=== PATIENT | female | born 1960 | race Caucasian/White ===

== ENCOUNTER 2025-01-08 07:55 | Inpatient (IN) | payer BC, SELFPAY ==
[2025-01-08] VITALS (20 sets, daily range): BP systolic 105–166; BP diastolic 52–86; PULSE 76–109; RESP 17–33; TEMP 36.3–36.8; O2SAT 90–100; BMI 28.0
--- NOTE | ~2025-01-08 | XR_ITS ---
EXAMINATION: XR chest 2V DATE: 01/08/2025 09:45 INDICATION: Shortness of breath. TECHNIQUE: Frontal and lateral views of the chest were obtained. COMPARISON: CT abdomen 11/03/2014 FINDINGS: There is no pneumonia, pleural effusion, or pneumothorax. The heart size is normal. IMPRESSION: 1. No acute cardiopulmonary disease. Reviewed, dictated and finalized at location A. [facility] [employer]
--- NOTE | 2025-01-08 08:05 | ECG_ITS ---
Test Date: 2025-01-08 09:04:16 Measurements Intervals [place] Rate: 95 P: 51 MS: 133 QRS: 64 QRSD: 81 T: 79 QT: 355 QTc: 447 Interpretive Statements SINUS RHYTHM MINIMAL Q WAVES- ANTEROLAT/INF LEADS BORDERLINE T WAVE ABNORMALITY- ANTERIOR LEADS BASELINE ARTIFACT- I, III, AVR, AVL, AVF, V1-V6 BORDERLINE ECG No previous ECG available for comparison Electronically Signed On 01-08-2025 09:34:54 JEWELRY SALESPERSON by Monty Arellano D.O.
--- NOTE | 2025-01-08 08:19 | ED_ITS ---
HPI - SOB/Dyspnea General Chief Complaint: Shortness of Breath/Dyspnea Stated Complaint: SOB Time Seen by Provider: 01/08/25 08:12 History of Present Illness HPI Narrative: Pt presents with shortness of breath for 4 days getting worse. Pt has ashtma hx but not on steroids for some time. Pt denies fever or CP. Pt has been doing a lot of nebs at home without relief. Pt received neb and solumedrol and mag in route without much change. Related Data Home Medications ?Medication ?Instructions ?Recorded ?Confirmed ?Last Taken ?Type albuterol sulfate 2.5 mg/3 mL 2.5 mg inhalation Q6-8H PRN 01/08/25 01/08/25 01/08/25 07:00 History (0.083 %) solution for nebulization shortness of breath or wheezing 2.5 mg albuterol sulfate 90 mcg/actuation 2 inh inhalation Q6-8H PRN 01/08/25 01/08/25 01/06/25 History aerosol inhaler shortness of breath or wheezing atorvastatin 40 mg tablet 40 mg PO QAM 01/08/25 01/08/25 01/06/25 History budesonide 160 mcg-glycopyr 9 2 inh inhalation QAM AND QPM 01/08/25 01/08/25 01/06/25 History mcg-formot 4.8 mcg/actuation HFA inhaler (Breztri Aerosphere) mepolizumab 100 mg/mL subcutaneous 300 mg subcut MONTHLY 01/08/25 01/08/25 12/28/24 History auto-injector (Nucala) omeprazole 20 mg capsule,delayed 20 mg PO QAM 01/08/25 01/08/25 01/06/25 History release Allergies Allergy/AdvReac Type Severity Reaction Status Date / Time No Known Allergies Allergy Verified 01/08/25 09:31 Review of Systems 2 Review of Systems: All systems reviewed & are unremarkable except as noted in HPI and below PMFSH Family History Family History (Updated 01/08/25 @ 14:07 by Frank Colin RN) Sibling Acute myocardial infarction Chronic lung disease Father Cerebrovascular accident Sibling Chronic lung disease Social History Social History Smoking packs per day: 0.5 Smoking cigarettes per day: 10.0 Years smoked: 41 Smoking pack-years: 20.50 Smoking status: Current every day smoker Tobacco type: cigarettes Smoking end date: 01/06/25 Alcohol intake: never Substance use: current Substance use type: does not use Do You Feel Safe in your Home?: Yes Lack of Transportation: No Lack of Food: Never True Current Housing: I Have Housing Concerned About Future Housing: No Difficulty Paying Gas/Electric Bills: No Difficulty Paying for Meds: No Currently Unemployed: No Education: High School Diploma/GED Difficulty w/ Childcare or Family Care: No Spiritual care concerns: No Exam 2 Const: General: healthy appearing Nutritional Appearance: well nourished Orientation/consciousness: patient oriented x3 Limitations: no limitations HENMT: Head: normal to inspection Mouth: Yes Normal oral and palatal mucosa present Chest: Chest palpation & inspection: normal inspection of the chest Resp: Effort & Inspection: tachypneic Auscultation: wheezes Cardio: Rate: tachycardic Rhythm: regular rhythm GI: GI Palp: Yes Soft to palpation and No Tenderness to palpation present (GI) Auscultation: normal bowel sounds Skin: General skin exam: normal color Rashes: no rashes Wounds: no wounds Neuro: General: patient oriented x3, moves all extremities, no focal motor deficits and CN's II-XI intact bilaterally Speech: normal speech Extrem: General: normal to inspection and no clubbing, cyanosis or edema Psych: Mental Status: mental status grossly normal Affect: normal affect Attitude: cooperative Course Vital Signs Vital signs: Vital Signs Temperature 98.2 F 01/08/25 07:58 Pulse Rate 103 H 01/08/25 07:58 Respiratory Rate 26 H 01/08/25 07:58 Blood Pressure 129/75 01/08/25 07:58 Pulse Oximetry 99 01/08/25 07:58 Oxygen Delivery Room Air 01/08/25 07:58 Temperature 97.3 F L 01/08/25 14:00 Pulse Rate 76 01/08/25 14:00 Respiratory Rate 19 01/08/25 14:00 Blood Pressure 105/57 L 01/08/25 14:00 Pulse Oximetry 96 01/08/25 14:00 Oxygen Delivery Nasal Cannula 01/08/25 08:10 Oxygen Flow Rate 2 01/08/25 08:10 MDM - SOB/Dyspnea MDM Narrative Medical decision making narrative: Pt presents with SOB for days. Pt tachypneic and wheezing. Pt has asthma hx. Pt received solumedrol nebs and mag in route. will give hour long neb and get labs and ekg and cxr and bnp. Pt better after hour long neb but still wheezing. Pt agreeable for observation. Discussed with Dr Crowley and agrees to admission. Lab Data 01/08/25 08:16 01/08/25 08:16 Labs: Lab Results 01/08/25 Range/Units 08:16 WBC 7.8 (4.5-10.0) K/mm3 RBC 4.67 (4.2-5.4) M/mm3 Hgb 14.5 (12.0-15.0) g/dL Hct 44.6 (37.0-47.0) % MCV 95.5 (80-100) fl MCH 31.0 (26-34) pg MCHC 32.5 (32-36) g/dl RDW 13.2 (11.5-14.5) % Plt Count 196 (150-375) k/mm3 MPV 9.4 (7.4-10.4) fl Immature Gran % (Auto) 0.5 (0-0.5) % Neut % (Auto) 81.7 H (45.5-73.1) % Lymph % (Auto) 8.0 L (18.3-44.2) % [place] % (Auto) 9.6 H (2.6-8.5) % Eos % (Auto) 0.1 (0-4.4) % Baso % (Auto) 0.1 L (0.2-1.2) % Lymph # (Auto) 0.62 L (0.9-3.2) K/mm3 Daggett # (Auto) 0.8 H (0.1-0.6) K/mm3 Eos # (Auto) 0.0 (0-0.3) K/mm3 Baso # (Auto) 0.0 (0.0-0.1) K/mm3 Abs Immat Gran (auto) 0.04 H (0.00-0.031) K/mm3 Absolute Neuts (auto) 6.4 (1.3-6.7) K/mm3 Absolute Nucleated RBC 0.000 (0.0-0.012) K/mm3 Nucleated RBC % 0.0 (0.0-0.2) % Sodium 137 (137-145) mmol/L Potassium 4.1 (3.4-5.0) mmol/L Chloride 104 (98-107) mmol/L Carbon Dioxide 22 (22-30) mmol/L Anion Gap 11 (4-12) mmol/L BUN 15 (7-17) mg/dL Creatinine 0.64 L (0.7-1.0) mg/dL Estim Creat Clear Calc 80 ml/min Estimated GFR > 60 (59 - ) Glucose 170 H (65-110) mg/dL Calcium 8.8 (8.4-10.2) mg/dL Total Bilirubin 0.7 (0.2-1.3) mg/dL AST 32 (14-36) U/L ALT 30 (6-35) U/L Alkaline Phosphatase 125 (38-126) U/L Total Protein 7.0 (6.3-8.2) g/dL Albumin 4.1 (3.5-5.1) g/dL Discharge Plan Discharge Clinical Impression: COPD exacerbation Patient Disposition: Still a Patient Condition: Improved
[2025-01-08 08:23] LABS: Basophils Percent Auto 0.1 % (0.2-1.2); Eosinophils Percent Auto 0.1 % (0-4.4); Hematocrit 44.6 % (37.0-47.0); Hemoglobin 14.5 g/dL (12.0-15.0); Immature Granulocyte Absolute 0.04 K/mm3 (0.00-0.031); Immature Granulocyte Percent A 0.5 % (0-0.5); Lymphocytes Absolute Auto 0.62 K/mm3 (0.9-3.2); Mean Corpuscular HGB Conc 32.5 g/dl (32-36); Mean Corpuscular Volume 95.5 fl (80-100); Mean Platelet Volume 9.4 fl (7.4-10.4); Monocytes Absolute Auto 0.8 K/mm3 (0.1-0.6); Monocytes Percent Auto 9.6 % (2.6-8.5); Neutrophils Absolute Auto 6.4 K/mm3 (1.3-6.7); Neutrophils Percent Auto 81.7 % (45.5-73.1); Platelet Count Result 196 k/mm3 (150-375); Red Blood Count 4.67 M/mm3 (4.2-5.4); Red Cell Distribution Width 13.2 % (11.5-14.5); White Blood Count 7.8 K/mm3 (4.5-10.0)
[2025-01-08 08:32] LABS: Alanine Aminotransferase 30 U/L (6-35); Albumin Level 4.1 g/dL (3.5-5.1); Alkaline Phosphatase 125 U/L (38-126); Anion Gap 11 mmol/L (4-12); Aspartate Amino Transferase 32 U/L (14-36); Bilirubin,Total 0.7 mg/dL (0.2-1.3); Blood Urea Nitrogen 15 mg/dL (7-17); Calcium 8.8 mg/dL (8.4-10.2); Carbon Dioxide 22 mmol/L (22-30); Chloride 104 mmol/L (98-107); Estimated CRCL calculation 80 ml/min; Estimated Glomerular Filt Rate > 60; Glucose 170 mg/dL (65-110); Potassium 4.1 mmol/L (3.4-5.0); Sodium 137 mmol/L (137-145)
[2025-01-08] MEDS: ALBUTEROL SULFATE NEB 2.5 MG/3 ML INH 10 MG INHALATION (08:35)
--- OUTSIDE RECORDS SUMMARY | 2025-01-08 08:56 | XMS_ITS | Patient Health Summary ---
Author Organization [facility] Address [address] [place] [address] Care Team Providers Care Edge Grinder Machine Name Role Phone Theo Argueta MD Primary Care Provider [phone] Theo Argueta MD Unavailable [phone] [facility],non-owned Affiliates and Associated Physician Practices is amultiple site organization consisting of ambulatory clinics and hospital sitesin [place], [place], [place] and [place]. This disclosure is being madepursuant to the Care Everywhere program and may not contain all information available regarding this patient. Last updated 18.[facility] Allergies * Penicillins * Penicillins Medications * Be aware that medications may not be up to date on this document. Alwaysverify current medications with the patient. * Albuterol Sulfate (PROAIR HFA IN) * Omeprazole (PRILOSEC PO) * Atorvastatin Calcium (LIPITOR PO) * fluticasone-salmeterol (ADVAIR) 250-50 MCG/DOSE inhaler Inhale 1 puff by mouth 2 times daily Active Problems No known active problems Social History Tobacco Use Types Packs/Day Years Used Date Smoking Tobacco: Some Days Cigarettes Smokeless Tobacco: Never Tobacco Cessation:Ready to Q uit: No; Counseling Given: Yes Sex and Gender Information Value Date Recorded Sex Assigned at Not on file Gender Identity Not on file Sexual Orientation Not on file Last Filed Vital Signs Vital Sign Reading Time Taken Comments Blood Pressure 122/86 08/27/2018 5:27 PM CDT Pulse 82 08/27/2018 5:27 PM CDT Temperature 36.8 C (98.2 F) 08/27/2018 5:27 PM CDT Respiratory Rate 18 05/02/2018 6:09 PM CDT Oxygen Saturation 96% 08/27/2018 5:27 PM CDT Inhaled Oxygen Concentration - - Weight 72.6 kg (160 lb) 08/27/2018 5:27 PM CDT Height 170.2 cm (5' 7 ) 08/27/2018 5:27 PM CDT Body Mass Index 25.06 08/27/2018 5:27 PM CDT Procedures * URINALYSIS AUTO - POINT OF CARE (AMB) STL(Performed 08/27/2018) Performed for Cystitis with hematuria * CULTURE URINE(Performed 05/02/2018) Performed for Cystitis with hematuria * URINALYSIS AUTO - POINT OF CARE (AMB) STL(Performed 05/02/2018) Performed for Cystitis with hematuria * URINALYSIS AUTO - POINT OF CARE (AMB) STL(Performed 09/03/2016) Performed for Dysuria * GROSS + MICRO EXAM(Performed 05/14/1999) Results * (ABNORMAL) URINALYSIS AUTO - POINT OF CARE (AMB) STL (08/27/2018) Only the most recent of3 resultswithin the time period is included. Clarity UA POCT cloudy Color UA POCT orange Leukocyte UA AZO Negative Nitrite UA POCT AZO Negative Urobilinogen UA 0.0(A) 0.1 - 1.0 Protein UA POCT AZO Negative pH UA 0.0(A) 5.0 - 8.0 pH units Blood UA +++ Negative Specific [place] UA POCT 0(A) 1.002 - 1.030 Ketone UA AZO Negative Bilirubin UA POCT AZO Negative Glucose UA AZO Negative Expiration Date 03/05/2020 Lot # [id number] QC Verified Yes Yes Urine URINE / Unknown 08/27/2018 [facility] - POINT OF CARE ORDERABLES * CULTURE URINE (05/02/2018 6:51 PM CDT) Culture QUEST Comment: CULTURE, URINE, ROUTINE MICRO NUMBER: [id number] TEST STATUS: FINAL SPECIMEN SOURCE: URINE MIDSTR SPECIMEN QUALITY: ADEQUATE RESULT: Multiple organisms present, each less than 10,000 CFU/mL. These organisms, commonly found on external and internal genitalia, are considered to be colonizers. No further testing performed. Test Performed at: [facility] [address] FRANKIE RHOADES MD Urine MID-STREAM URINE SPECIMEN / Unknown 05/02/2018 6:51 PM CDT 05/03/2018 2:46 AM CDT Luna Brantley [facility] - MICROBIO LOGY ORDERABLES [address] [address] * GROSS + MICRO EXAM (05/14/1999 10:31 AM CDT) Result CASE NUMBER [id number] Comment: ORDERING PHYSICIAN SHELLY JOSE SPECIMEN TYPE Tissue Date 05/14/1999 Physician Fabi Gross Description The specimen is received in a formalin-filled container, labeled with the patient's name and disc L5-S1 . The specimen consists of numerous morrison-white cartilaginous tissue fragments, measuring 3 x 3 x 1 cm in aggregate. A chemical sales representative sample is submitted in a single cassette. BM/lmj Microscopic Exam The L5-S1 material that consists of proliferative fibrocartilage. No malignancy is identified. AB/[facility] Diagnosis I. L5-S1,laminectomy A. Intervertebral disc material. AB/[facility] Job Service Consultant [facility] Pathologist Braydon Campos M.D. [place]. 05/17/1999 1151 <1> CPT code 03360/32839 MISCELLANEOUS SAMPLES / Unknown 05/14/1999 10:31 AM CDT 05/14/1999 10:31 AM CDT Historical Provider LAB - PATHOLOGY/C YTOLOGY ORDERABLES Care Teams Edge Grinder Machine Relationship Specialty Start Date End Date Theo Argueta MD [address] [place] [id number] PCP - General Gastroenterology 03/06/17 Theo Argueta MD [address] [place] [id number] Gastroenterology 03/06/17
--- OUTSIDE RECORDS SUMMARY | 2025-01-08 08:56 | XMS_ITS | Referral Summary ---
Author Organization [facility] Address [address] [place] [address] Care Team Providers Care 3D Modeler Name Role Phone Theo Argueta MD Primary Care Provider [phone] Theo Argueta MD Unavailable [phone] Source Comments [facility],non-owned Affiliates and Associated Physician Practices is amultiple site organization consisting of ambulatory clinics and hospital sitesin [place], [place], [place] and [place]. This disclosure is being madepursuant to the Care Everywhere program and may not contain all information available regarding this patient. Last updated 18.[facility] Allergies Active Allergy Reactions Criticality Noted Date Comments Penicillins 09/03/2016 Penicillins 03/06/2017 Medications * Be aware that medications may not be up to date on this document. Alwaysverify current medications with the patient. Medication Sig Dispensed Refills Start Date End Date Status Albuterol Sulfate (PROAIR HFA IN) Active Omeprazole (PRILOSEC PO) Active Atorvastatin Calcium (LIPITOR PO) Active fluticasone-salmeterol (ADVAIR) 250-50 MCG/DOSE inhaler Inhale 1 puff by mouth 2 times daily Active Active Problems No known active problems Social [...] Mass Index 25.06 08/27/2018 5:27 PM CDT Plan of Treatment Not on file Care Teams 3D Modeler Relationship Specialty Start Date End Date Theo Argueta MD [address] [place] [address] [place] [address] [phone] PCP - General Gastroenterology 03/06/17 Theo Argueta MD [address] [place] [address] [place] [address] [id number] Gastroenterology 03/06/17
--- OUTSIDE RECORDS SUMMARY | 2025-01-08 08:56 | XMS_ITS | CONTINUITY OF CARE DOCUMENT ---
Author Name miguel chenchandrika Address Unknown Organization [facility] Address [address] [place] [address] Phone [phone] Care Team Providers Care Digital Developer Name Role Phone Lindsay Pires MD Unavailable FRANCOISE BAILEY, GEOVANY Unavailable GEOVANY OWUSU MD Unavailable [phone] PROBLEMS Condition Status Date Provider Notes Cardiac murmur active Lindsay Pires MD Exertional shortness of breath active Patricia Pires MD Tobacco abuse active Lindsay Pires MD Hypercholesterolemia active Lindsay jackson MD Family history of premature CAD- sister had CABG in 50s active Lindsay Pires MD G E R D active Lindsay Pires MD C O P D active Lindsay Pires MD Cardiology examination active Lindsay bailey MD ENCOUNTERS Date Type Provider Location Encounter Diag nosis - In-person encounter Office Visit Lindsay Pires MD [facility] Cardiology examinationC O P DG E R DFamily history of premature CAD- sister had CABG in 50sHypercholesterolemia Tobacco abuseExertional shortness of breathCardiac murmur VITAL SIGNS Date Observation Value Provider Body Mass Index (Ratio) 28.89 kg/m2 Wood Pires MD blood pressure, diastolic 84 mm[Hg] Dai nkLogvalentin blood pressure, systolic 132 mm[Hg] Hattie kLogic blood pressure, cuff size regular Ke rri Darrion blood pressure, diastolic 84 mm[Hg] Ke rri Darrion blood pressure, systolic 132 mm[Hg] Ker ri Darrion oxygen saturation, oximetry 97 % January Darrion pulse rate 76 /min January Alexe lder weight E&M 179 [lb_av] January Alexe lder height E&M 66 [in_i] January Foreign lder HISTORY OF MEDICATION USE Medication Status Instructions Dates Provider Indications Com ments Mimii Aerosphere 160-9-4.8 mcg/actuation HFA aerosol inhaler active January Gryeimyelder Nucala 100 mg/mL auto-injector active January Sandeepnemarlenielder epinephrine 0.3 mg/0.3 mL auto-injector active January Gryusefnemarlenielder albuterol sulfate 2.5 mg/3 mL (0.083 %) solution for nebulization active January Gryusefnenfelder albuterol sulfate 90 mcg/actuation HFA aerosol inhaler active January Konrader omeprazole 20 mg capsule,delayed release(DR/EC) active January Konrader atorvastatin 40 mg tablet active January Konrader SOCIAL HISTORY Date Observation Value Provider smoking history, tot al pack/day 1/2 Lindsay Pires MD cigarette use yes Lindsay arreola MD smoking status Current every day smoker S aime Pires MD INSURANCE PROVIDERS Payer name Policy type / Coverage type [place] red green party ID BLUE [facility] [id number] ADVANCE DIRECTIVES Name Date DISCUSSED - NO DECISION MADE TREATMENT PLAN Date Name Performer Cardiology:The Patie nt was reencouraged to stop smoking. Lindsay Pires MD Cardiology:Will arra nge for echo to be done to evaluate for any valvular issues. s oft sytolic murmur appreciated on exam c heck echo, pet-ct stress, ca score Lindsay Pires MD Cardiology:likely re lated to her smoking u ses inhalers Lindsay Pires MD Cardiology:Her siste r had CABG in her 50s P atient has started med rx for Chol N o sx of cp, does endorse of exertional dyspnea W Ill arrange for a chemical stress test to be done in light of her FHx of premature CAD C a score to asses her need for more aggressive medical therapy Lindsay Pires MD Date Name CT, Coronary Calcium Score Complete Echo myocardial blood reji w (PET) Stress Cardiac PET-C T HISTORY OF PROCEDURES Procedure Date Procedure Name Provider Procedure Notes S tatus Tobacco user + tobac co cessation intervention Lnidsay Pires MD [12/19/2024 - abigail] NPR completed EKG Lindsay Pires MD [12/19/2024 - abigail] NPR completed
--- OUTSIDE RECORDS SUMMARY | 2025-01-08 08:56 | XMS_ITS | Clinical Summary ---
Author Organization [email or web address] Address [address] [place] [address] Care Team Providers Care Watermelon Harvesting Supervisor Name Role Phone Theo Argueta MD Primary Care Provider [phone] Theo Argueta MD Unavailable [phone] Source Comments [facility],non-owned Affiliates and Associated Physician Practices is amultiple site organization consisting of ambulatory clinics and hospital sitesin [place], [place], [place] and [place]. This disclosure is being madepursuant to the Care Everywhere program and may not contain all information available regarding this patient. Last updated 18.[email or web address] Allergies Active Allergy Reactions Criticality Noted Date [...] 08/27/2018 5:27 PM CDT Plan of Treatment Health Maintenance Due Date Last Done Comments BONE DENSITY TESTING 1959 COLOGUARD (AGES 45-75) - COL ON CA SCREENING 1959 COLON MONITORING 1959 COLONOSCOPY - COLON CA SCREENING 1959 CT COLONOGRAPHY - COLON CA SCREENING 1959 Colorectal Cancer Screening 1959 FIT - COLON CA SCREENING 1959 FLEX SIG - COLON CA SCREENING 1959 MAMMOGRAM 1959 PAP SMEAR 1959 HIV SCREENING 1974 HEPATITIS C SCREENING 05/10/1977 DTAP/TDAP/TD VACCINES (1 - Tdap) 1978 PNEUMOCOCCAL VACCINE 50+ (1 of 2 - PCV) 1978 ZOSTER VACCINE (1 of 2) 2009 SCREENING FOR DIABETES 05/02/2018 COVID-19 VACCINE ( - 2023-2 5 season) 2024 INFLUENZA VACCINE (#1) 2024 DEPRESSION SCREENING 11/27/2024 Respiratory Syncytial Virus (RSV) Vaccine Pt: or over 60 yrs (1 - 1-dose 75+ series) 2034 HEPATITIS B VACCINE Aged Out No longe r eligible based on patient's age to complete this topic HIB VACCINE Aged Out No longer eligi ble based on patient's age to complete this topic HPV VACCINE Aged Out No longer eligi ble based on patient's age to complete this topic MENINGOCOCCAL (Group B) VACCINE Aged Out No longer eligible based on patient's age to complete this topic MENINGOCOCCAL VACCINE Aged Out No aryan surjit eligible based on patient's age to complete this topic Care Teams Watermelon Harvesting Supervisor Relationship Specialty Start Date End Date Theo Argueta MD [address] [place] [id number] PCP - General Gastroenterology 03/06/17 Theo Argueta MD [address] [place] [id number] Gastroenterology 03/06/17
--- OUTSIDE RECORDS SUMMARY | 2025-01-08 08:56 | XMS_ITS | Clinical Summary ---
Author Organization [facility] Address [address] [place] [address] Care Team Providers Care Salesperson Women'S Hats Name Role Phone Unavailable Primary Care Provider Unavailabl e Social History Tobacco Use Types Packs/Day Years Used Date Smoking Tobacco: Never Assessed Comments Unknown Sex and Gender Information Value Date Recorded Sex Assigned at Not on file Legal Sex Female 8:09 AM CDT Gender Identity Not on file Sexual Orientation Not on file Plan of Treatment Health Maintenance Due Date Last Done Comments Colorectal Cancer Screening Colonoscopy (10 Years) 1959 Hepatitis C 1977 DTaP, Tdap and Td Vaccines ( 1 - Tdap) 1978 Mammogram Screening 1999 Zoster Vaccines (1 of 2) 2009 Dexa Scan (General) 2024 Pneumococcal Vaccine: 65+ Ye ars (1 of 1 - PCV) 2024 COVID-19 Vaccine (2023-2 5 season) 2024 Influenza Adult (#1) 2024 RSV Immunization or 60+ Years (1 - 1-dose 75+ series) 2034 Meningococcal B Vaccine Aged Out No l onger eligible based on patient's age to complete this topic Meningococcal Vaccine Aged Out No aryan surjit eligible based on patient's age to complete this topic Pneumococcal Vaccine: Pediat rics (0 to 5 Years) and At-Risk Patients (6 to 64 Years) Aged Out No longer eligible b ased on patient's age to complete this topic RSV Immunizations Under 20 Months Aged Out No longer eligible based on patient's age to complete this topic
--- OUTSIDE RECORDS SUMMARY | 2025-01-08 08:56 | XMS_ITS | Data Portability ---
Author Organization [place] - [facility], Main Office Address [address] [place] [address] Care Team Providers Care Clinical Sciences Professor Name Role Phone HU ARGUETA Chalk Machine Operator [phone] WAYNE FONTAINE Primary Care Provider TERRIE PULMONOLOGY Dinkey Operator Slag Assessment Encounter Date Assessment Date Assessment LastModified by Organization Details LastModified Time 07/05/2023 07/05/2023 Assessment: Nicotine smoke: 4/5 ppd 1994- present (quit 2 years in between) = 20.8 pack years Postnasal drip Hypogammaglobulinemia (total, IgG2, IgG3) Severe ACO Pulmonary nodules Plan: The following were reviewed and explained to the patient: Chest 2 views 02/16/22 within normal limits Lab data 03/02/22 low total IgG, IgG2 and IgG3 Chest CT 03/07/22 2.3 mm RUL nodule, 2 mm lingular nodule PFT 03/17/22 FEV1 1.15 L (43%), (+) BD response Dr. Floyd consult note 06/28/22 hypogammaglobulinemia Nicotine cessation counseling provided for 4 minutes. [place] for quitting nicotine include getting ready, getting support and encouragement, learning new skills and behaviors and being prepared to handle slips. Tips for dealing with cravings provided. Prevention of subsequent illnesses from nicotine addiction discussed. Comorbidities include but are not limited to hypertension, cerebrovascular disease, coronary heart disease, congestive heart failure, hyperlipidemia, COPD/asthma, peptic ulcer disease, esophagitis/gastritis, and osteoporosis. Therapy options offered include: Quitting by total abstinence Receiving nicotine replacement therapy Undergoing hypnosis Filling a bupropion or varenicline prescription Enrolling in Quit For Life program Registering at [email or web address].OpenSpark Making a call to 1-102-UFRY-NOW ( ). A strong, clear, personalized message was given to the patient to quit smoking. The patient was urged to set a quit date. We discussed patient's barriers to quitting and I will be of assistance when patient is ready to quit. I encouraged patient to inform friends and family of plans to quit with a request for support. I encouraged the patient to remove all cigarettes from the environment. We reviewed any previous quit attempts and lessons learned from them. I encouraged total abstinence from smoking and advised the patient that drinking alcohol and/or associating with other smokers are associated with failure or relapse. Patient can enroll in [facility]'s smoking cessation class through Christine Saul RN at . Enrollment is free and classes are held every monday of the month from 1:30 pm to 2:30 pm at the conference room next to the cafeteria on the ground floor. Patient may need gammaglobulin infusions during times of infection. Patient will follow up with Dr. Torres Floyd at [address] [place], [place] [phone] [place] for further evaluation and treatment of hypogammaglobulinemia. Continue Atrovent nasal spray 0.06% 1 spray to each nostril up to 4 times a day for postnasal drip. Repeat chest CT for pulmonary nodules monitoring. Pulmonary rehabilitation may be included in the management of patients with chronic obstructive pulmonary disease (COPD). For respiratory diseases different from COPD, there have been no formal statements regarding patient selection. Pulmonary rehabilitation consists of assessment, exercise, education, and emotional support. It covers the goals of rehabilitation, the techniques of breathing, the necessity of nicotine cessation, the strategies to deal with panic attacks, the rationale of pulmonary medications, and the importance of nutrition. As the patient learns to live with her pulmonary condition through exercise and education, the patient will regain confidence with her abilities and feel improvement in his/her overall quality of life. Contraindications to pulmonary rehabilitation are infrequent, but include conditions that would place the patient at increased risk during exercise (e.g., uncontrolled cardiac disease, such as chronic heart failure). The patient's FEV1 is 43%. The patient was enrolled in pulmonary rehabilitation but she wants to postponed this to the future. General concepts of pulmonary rehabilitation were explained. Continue albuterol HFA as needed. Continue Breztri 160/9/4.8 mcg 2 puffs BID. Gargle after use. The patient does not know how to accurately administer the inhalers. Today, the patient was shown how to take these medications. The proper technique for delivering these medications was instructed. The patient expressed a clear understanding and demonstrated back how to use these medications. Without the proper technique, the patient will not reap the benefits of these medications as the contents will not reach the lower airways as intended to be. Adherence to therapy is advocated. Nonadherence may lead to treatment failure, further progression of the condition, and other complications. Hospitals admissions are often the result of individuals not taking prescription medications accurately. Alternatively, greater adherence to medication regimens have shown to lower rates of hospitalization and decrease total medical costs in patients with chronic medical conditions. Advocated influenza vaccination annually and pneumonia vaccination in 2023. Advocated weight loss through diet and exercise. Patient's ideal body weight according to height and gender is up to 145 lbs. Encouraged patient to adjust caloric intake to maintain/achieve ideal body weight, emphasizing on fruits, vegetables, whole grains, and fat-free or low-fat products. These include lean meats, poultry, fish, beans, eggs, and nuts and foods that are low in saturated fats, trans-fats, cholesterol, salt (sodium), and glycemic index. Stressed the importance of regular exercise up to the patient's capacity limits. In this case, we recommend 20 min daily walking, 2 days a week of resistance training. Patient to monitor BP daily and bring records to PCP for further management. Follow-up: one week after PFT and chest CT Not available 07/05/2023 14:38:26 09/12/2023 09/12/2023 Assessment: Nicotine smoke: 03/01 ppd 1994- present (quit 2 years in between) = 20.8 pack years Postnasal drip Hypogammaglobulinemia (total, IgG2, IgG3) Eosinophils 380/uL Severe ACO Plan: The following were reviewed and explained to the patient: Chest 2 views 02/16/22 within normal limits Lab data 03/02/22 low total IgG, IgG2 and IgG3 Chest CT 03/07/22 2.3 mm RUL nodule, 2 mm lingular nodule Chest CT 07/10/23 no nodules PFT 03/17/22 FEV1 1.15 L (43%), (+) BD response PFT 09/07/23 FEV1 0.92 L (36%) Dr. Floyd consult note 06/28/22 hypogammaglobulinemia Nicotine cessation counseling provided. [place] for quitting nicotine include getting ready, getting support and encouragement, learning new skills and behaviors and being prepared to handle slips. Tips for dealing with cravings provided. Prevention of subsequent illnesses from nicotine addiction discussed. Comorbidities include but are not limited to hypertension, cerebrovascular disease, coronary heart disease, congestive heart failure, hyperlipidemia, COPD/asthma, peptic ulcer disease, esophagitis/gastritis, and osteoporosis. Therapy options offered include: Quitting by total abstinence Receiving nicotine replacement therapy Undergoing hypnosis Filling a bupropion or varenicline prescription Enrolling in Quit For Life program Registering at [email or web address] Making a call to 0-310-XBEK-NOW ( ). A strong, clear, personalized message was given to the patient to quit smoking. The patient was urged to set a quit date. We discussed patient's barriers to quitting and I will be of assistance when patient is ready to quit. I encouraged patient to inform friends and family of plans to quit with a request for support. I encouraged the patient to remove all cigarettes from the environment. We reviewed any previous quit attempts and lessons learned from them. I encouraged total abstinence from smoking and advised the patient that drinking alcohol and/or associating with other smokers are associated with failure or relapse. Patient can enroll in [facility]'s smoking cessation class through Christine Saul RN at . Enrollment is free and classes are held every monday of the month from 1:30 pm to 2:30 pm at the conference room next to the cafeteria on the ground floor. Patient may need gammaglobulin infusions during times of infection. Continue Atrovent nasal spray 0.06% 1 spray to each nostril up to 4 times a day for postnasal drip. Pulmonary rehabilitation may be included in the management of patients with chronic obstructive pulmonary disease (COPD). For respiratory diseases different from COPD, there have been no formal statements regarding patient selection. Pulmonary rehabilitation consists of assessment, exercise, education, and emotional support. It covers the goals of rehabilitation, the techniques of breathing, the necessity of nicotine cessation, the strategies to deal with panic attacks, the rationale of pulmonary medications, and the importance of nutrition. As the patient learns to live with her pulmonary condition through exercise and education, the patient will regain confidence with her abilities and feel improvement in her overall quality of life. Contraindications to pulmonary rehabilitation are infrequent, but include conditions that would place the patient at increased risk during exercise (e.g., uncontrolled cardiac disease, such as chronic heart failure). The patient's FEV1 is 36%. The patient was enrolled in pulmonary rehabilitation but she wants to postponed this to the future. General concepts of pulmonary rehabilitation were explained. Patient will consult with Dr. Torres Floyd at [address] [place] [phone] [place] for further evaluation and treatment of possible eosinophilic asthma. Continue albuterol HFA as needed. Continue Breztri 160/9/4.8 mcg 2 puffs BID. Gargle after use. The patient does not know how to accurately administer the inhalers. Today, the patient was shown how to take these medications. The proper technique for delivering these medications was instructed. The patient expressed a clear understanding and demonstrated back how to use these medications. Without the proper technique, the patient will not reap the benefits of these medications as the contents will not reach the lower airways as intended to be. Adherence to therapy is advocated. Nonadherence may lead to treatment failure, further progression of the condition, and other complications. Hospitals admissions are often the result of individuals not taking prescription medications accurately. Alternatively, greater adherence to medication regimens have shown to lower rates of hospitalization and decrease total medical costs in patients with chronic medical conditions. Advocated influenza vaccination annually and pneumonia vaccination in 2023. Advocated weight loss through diet and exercise. Patient's ideal body weight according to height and gender is up to 145 lbs. Encouraged patient to adjust caloric intake to maintain/achieve ideal body weight, emphasizing on fruits, vegetables, whole grains, and fat-free or low-fat products. These include lean meats, poultry, fish, beans, eggs, and nuts and foods that are low in saturated fats, trans-fats, cholesterol, salt (sodium), and glycemic index. Stressed the importance of regular exercise up to the patient's capacity limits. In this case, we recommend 20 min daily walking, 2 days a week of resistance training. Patient to monitor BP daily and bring records to PCP for further management. Follow-up: 3 months, November 2023 Not available 09/12/2023 16:37:51 01/22/2024 01/22/2024 Assessment: Nicotine smoke: / ppd 9546-5565 (quit 2 years in between) = 20.8 pack years Postnasal drip Hypogammaglobulinemia (total, IgG2, IgG3) Eosinophils 380/uL Severe ACO Plan: The following were reviewed and explained to the patient: Chest 2 views 02/16/22 within normal limits Lab data 03/02/22 low total IgG, IgG2 and IgG3 Chest CT 03/07/22 2.3 mm RUL nodule, 2 mm lingular nodule Chest CT 07/10/23 no nodules PFT 03/17/22 FEV1 1.15 L (43%), (+) BD response PFT 09/07/23 FEV1 0.92 L (36%) Dr. Floyd note 06/28/[address] Floyd note 11/09/23 Nucala considered Nicotine cessation counseling provided. [place] for quitting nicotine include getting ready, getting support and encouragement, learning new skills and behaviors and being prepared to handle slips. Tips for dealing with cravings provided. Prevention of subsequent illnesses from nicotine addiction discussed. Comorbidities include but are not limited to hypertension, cerebrovascular disease, coronary heart disease, congestive heart failure, hyperlipidemia, COPD/asthma, peptic ulcer disease, esophagitis/gastritis, and osteoporosis. Therapy options offered include: Quitting by total abstinence Receiving nicotine replacement therapy Undergoing hypnosis Filling a bupropion or varenicline prescription Enrolling in Quit For Life program Registering at [email or web address].[email or web address] Making a call to 2-035-DQZF-NOW ( ). A strong, clear, personalized message was given to the patient to quit smoking. The patient was urged to set a quit date. We discussed patient's barriers to quitting and I will be of assistance when patient is ready to quit. I encouraged patient to inform friends and family of plans to quit with a request for support. I encouraged the patient to remove all cigarettes from the environment. We reviewed any previous quit attempts and lessons learned from them. I encouraged total abstinence from smoking and advised the patient that drinking alcohol and/or associating with other smokers are associated with failure or relapse. Patient can enroll in [facility]'s smoking cessation class through Christine Saul RN at . Enrollment is free and classes are held every monday of the month from 1:30 pm to 2:30 pm at the conference room next to the cafeteria on the ground floor. Patient may need gammaglobulin infusions during times of infection. Continue Atrovent nasal spray 0.06% 1 spray to each nostril up to 4 times a day for postnasal drip. Pulmonary rehabilitation may be included in the management of patients with chronic obstructive pulmonary disease (COPD). For respiratory diseases different from COPD, there have been no formal statements regarding patient selection. Pulmonary rehabilitation consists of assessment, exercise, education, and emotional support. It covers the goals of rehabilitation, the techniques of breathing, the necessity of nicotine cessation, the strategies to deal with panic attacks, the rationale of pulmonary medications, and the importance of nutrition. As the patient learns to live with her pulmonary condition through exercise and education, the patient will regain confidence with her abilities and feel improvement in her overall quality of life. Contraindications to pulmonary rehabilitation are infrequent, but include conditions that would place the patient at increased risk during exercise (e.g., uncontrolled cardiac disease, such as chronic heart failure). The patient's FEV1 is 36%. The patient was enrolled in pulmonary rehabilitation but she wants to postponed this to the future. General concepts of pulmonary rehabilitation were explained. Patient will follow up with Dr. Torres Floyd at [address] [place] [address], [place] [address] [place] for further evaluation and treatment of possible eosinophilic asthma. Continue albuterol HFA as needed. Continue Breztri 160/9/4.8 mcg 2 puffs BID. Gargle after use. The patient does not know how to accurately administer the inhalers. Today, the patient was shown how to take these medications. The proper technique for delivering these medications was instructed. The patient expressed a clear understanding and demonstrated back how to use these medications. Without the proper technique, the patient will not reap the benefits of these medications as the contents will not reach the lower airways as intended to be. Adherence to therapy is advocated. Nonadherence may lead to treatment failure, further progression of the condition, and other complications. Hospitals admissions are often the result of individuals not taking prescription medications accurately. Alternatively, greater adherence to medication regimens have shown to lower rates of hospitalization and decrease total medical costs in patients with chronic medical conditions. Advocated influenza vaccination annually and pneumonia vaccination in 2023. Advocated weight loss through diet and exercise. Patient's ideal body weight according to height and gender is up to 145 lbs. Encouraged patient to adjust caloric intake to maintain/achieve ideal body weight, emphasizing on fruits, vegetables, whole grains, and fat-free or low-fat products. These include lean meats, poultry, fish, beans, eggs, and nuts and foods that are low in saturated fats, trans-fats, cholesterol, salt (sodium), and glycemic index. Stressed the importance of regular exercise up to the patient's capacity limits. In this case, we recommend 20 min daily walking, 2 days a week of resistance training. Patient to monitor BP daily and bring records to PCP for further management. Follow-up: 9 months, September 2024 [facility] Not available 01/22/2024 12:34:51 Plan of Treatment Reminders Order Date Submit Date Provider Last Modified By Organization Details Last Modified Time Details Appointments Any 15 2024 01:00P Neo mera MD Not available Not available Not available Any 15 2024 01:00P Neo mera MD Not available Not available Not available Lab lipid panel, serum [address] (Lab), [address] [place], [address], 01/07/2025 14:01:25 CBC w/ auto diff [address] (Lab), [address] [place], [address], 01/07/2025 14:01:25 TSH, serum or plasma [address] (Lab), [address] [place], [address], 01/07/2025 14:01:25 CMP, serum or plasma [address] (Lab), [address] [place], [address], 01/07/2025 14:01:26 vitamin D, 25-hydrox y, total, serum [address] (Lab), [address] [place], [address], 01/07/2025 14:01:26 vitamin B12 + folate, serum or blood [address] (Lab), [address] [place], [address], 01/07/2025 14:01:26 lipid panel, serum [address] (Lab), [address] [place], [address], 01/07/2025 14:01:26 CBC w/ auto diff [address] (Lab), [address] [place], [address], 01/07/2025 14:01:26 TSH, serum or plasma [address] (Lab), [address] [place], [address], 01/07/2025 14:01:26 CMP, serum or plasma [address] (Lab), [address] [place], [address], 01/07/2025 14:01:27 vitamin D, 25-hydrox y, total, serum [address] (Lab), [address] [place], [address], 01/07/2025 14:01:27 vitamin B12 + folate, serum or blood 2024 025 [email or web address] [facility] ([facility] [address] [facility], [place], [address], 01/07/2025 14:01:27 Referral box brander referral - Eosinophi ls 380/uL, PFT 03/17/22 FEV1 1.15 L (43%), (+) BD response 2022 023 5 Sebastian Floyd, [address], [place], [address], 11/01/2023 14:57:50 gynecolog ist referral - Please call patient to schedule. 2023 024 [email or web address] Meredith Baca MD, [address] [facility] [address], [place], [address], 12/05/2024 09:59:40 hand surgeon referral - Please call patient to schedule. 2023 024 Zach Calderon MD, [address] [facility], [address], [place], [address], 12/05/2024 09:59:40 cardiolog ist referral - Please call patient to schedule. 2023 024 MARTINA Pires MD, [address] [facility], [address], [place], [address], 12/11/2024 14:33:41 pulmonolo gist referral 2024 025 [email or web address] Not available 01/01/2025 09:50:51 box brander referral - Please call patient to schedule an appointme nt. Thank you. 2024 025 MARTINA Floyd, [address] , [place], [address], 01/08/2025 04:04:54 hand surgeon referral - Please call patient to schedule an appointme nt. Thank you 2024 025 MILES Vivas MD, [address] [facility] [address], [place], [address], 01/01/2025 10:10:48 Procedures upper endoscopy procedure (EGD) (PROC) 2023 024 [email or web address] Hu Argueta, [address], [place], [address], 10/28/2024 16:11:49 upper endoscopy procedure (EGD) (PROC) - Please call patient to schedule an appointme nt. Thank you. 2024 025 [email or web address] Sofi French MD, [address] [facility], [address], [place], [address], 01/01/2025 09:48:05 Surgeries None recorded. Imaging CT, chest, w/o contrast 2022 [facility]23 [email or web address] ([facility]), [address] [place], [address], 09/25/2023 16:36:18 LDCT, chest, for lung cancer screening 2023 024 [email or web address] ([facility]), [address] [place], [address], 10/04/2024 11:08:35 MAMMO, screening , digital, bilateral - Please call patient to schedule. 2023 024 [email or web address] [facility] ([facility]), [address] [place], [address], 10/28/2024 18:21:07 DEXA, axial skeleton - Please call patient to schedule. 2023 024 [email or web address] [facility] ([facility]), [address] [place], [address], 10/28/2024 16:12:02 Medication Orders albuterol sulfate HFA 90 mcg/actua tion aerosol inhaler 2022 023 [facility]/Pharmacy #[id number], [address], [place], [address], 07/05/2023 14:28:40 Breztri Aerospher e 160 mcg-9mcg- 4.8mcg/ac tuation HFA aerosol inhaler 2022 023 [facility]/Pharmacy #[id number], [address], [place], [address], 07/05/2023 14:28:39 ipratropi um bromide 42 mcg (0.06 %) nasal spray 2022 023 [id number] [address], [place], [address], 07/05/2023 14:28:39 albuterol sulfate HFA 90 mcg/actua tion aerosol inhaler 2022 023 [id number], [address], [place], [address], 09/12/2023 16:33:08 Breztri Aerospher e 160 mcg-9mcg- 4.8mcg/ac tuation HFA aerosol inhaler 2022 023 [facility]/Pharmacy #[id number], [address], [place], [address], 09/12/2023 16:33:09 ipratropi um bromide 42 mcg (0.06 %) nasal spray 2022 023 [facility]/Pharmacy #[id number], [address], [place], [address], 09/12/2023 16:33:08 albuterol sulfate HFA 90 mcg/actua tion aerosol inhaler 2023 024 [facility]/Pharmacy #[id number], [address], [place], [address], 01/22/2024 12:37:49 Breztri Aerospher e 160 mcg-9mcg- 4.8mcg/ac tuation HFA aerosol inhaler 2023 024 [facility]/Pharmacy #[id number], [address], [place], [address], 01/22/2024 12:37:48 ipratropi um bromide 42 mcg (0.06 %) nasal spray 2023 024 [facility]/Pharmacy #[id number], [address], [place], [address], 01/22/2024 12:38:24 albuterol sulfate HFA 90 mcg/actua tion aerosol inhaler 2024 025 [id number], [address], [place], [address], 12/31/2024 15:19:42 Patient TargetsNo targets recorded. Patient Instructions Encounter Date Encounter Id Patient Instructions Last Modified By Organization Details Last Modified Time 07/05/2023 [id number] complete PFT w/ post bronchodilator spirometry* MARTINA Not available 09/11/2023 12:22:50 01/22/2024 [id number] complete PFT w/ post bronchodilator spirometry* Not available 10/04/2024 10:37:27 Reason for Referral Product Management Consultant Referral for Eosin ophil count above reference range Eosinophils 380/uL, PFT 03/17/22 FEV1 1.15 L (43%), (+) BD response Referring Physician: Lorenzo Gonzalez, Pulmonary Disease, Encounter Date: 09/12/2023 Olive Knocker Referral for Gy necologic examination Please call patient to schedule. Referring Physician: Wayne Fontaine, Internal Medicine, Encounter Date: 09/26/2024 Film Or Tape Librarian Referral for Sc reening for cardiovascular system disease Please call patient to schedule. 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 Referring Physician: Wayne [facility], Encounter Date: 09/26/2024 Hand Surgeon Referral for Bi lateral carpal tunnel syndrome Please call patient to schedule an appointment. Thank you Referring Physician: Wayne [facility], Encounter Date: 12/31/2024 Dinkey Operator Slag Referral for C hronic obstructive pulmonary disease Referring Physician: Wayne Fontaine [facility], Encounter Date: 12/31/2024 Product Management Consultant Referral for Chron ic obstructive pulmonary disease Please call patient to schedule an appointment. Thank you. Referring Physician: Wayne [facility], Encounter Date: 12/31/2024 Results Created Date Observation Date Name Description Value Unit Range Abnormal Flag Note LastModifiedBy Organization Detail LastModifiedTime 07/10/20 23 07/10/2023 CT, chest , w/o contr ast No observ ation record ed. [address] [place], [address], 07/10/2023 18:49:38 09/11/20 23 09/07/2023 compl ete PFT w/ post [facility] hodil ator esteban metry * No observ ation record ed. [facility] ([facility] Scheduling) [address] [place], [address], 09/11/2023 12:22:50 Result Notes None recorded. Problems Name Problem SNOMED Code Status Onset Date Resolution Date Notes Provider Name and Address Organization Details Recorded Time Multiple nodules of lung 535626148 Active 2022 Not Available [facility] 3 10:17:55 Severe chronic obstructiv e pulmonary disease 642167271 Active 2022 Not Available [facility] 3 10:17:55 Posterior rhinorrhea 35823617 Active 2022 Not Available [facility] 3 10:17:55 Smoker 61398560 Active 2022 Not Available [facility] 3 10:17:55 Eosinophil count above reference range 227303310 Active 2022 Lorenzo Gonzalez MD [address], [place], [address] , [employer] [facility] [email or web address] [facility] 3 16:29:27 Ex-smoker 9266556 Active 2023 Lorenzo Gonzalez MD [address], [address], [place], [address] , [employer] [facility] [email or web address] [facility] 4 12:37:18 Hyperlipid emia 85591134 Active 2023 Wayne jackson MD [address], [address], [place], [address] , [employer] [facility] [email or web address] [facility] 4 15:01:56 Chronic obstructiv e pulmonary disease 60820216 Active 2023 Wayne jackson MD [address], [place], [address] , [employer] [facility] [employer] [facility] 4 15:02:15 Vitamin D deficiency 27730038 Active 2023 Wayne jackson MD [address], [place], [address] , [employer] [facility] 4 15:02:41 Serum vitamin B12 below reference range 991297748 Active 2023 Wayne jackson MD [address], [place], [address] , [employer] [facility] [email or web address] [facility] 4 15:02:48 Gastroesop hageal reflux disease without esophagiti s 469666705 Active 2023 Wayne jackson MD [address], [place], [address] , [facility] [email or web address] [facility] 15:03:43 Bilateral carpal tunnel syndrome 2013203927255 9101 Active 2023 Wayne jackson MD [address], [address] , 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 Procedures Surgical History Date Name Laterality Status Provider Name and Address Organization Details Recorded Time 9 Back Surgeries completed Not Available [facility] 01/26 00:57:56 Imaging Results Imaging Date Name Status LastModified by Organization Details LastModified Time 07/10/2023 CT, chest, w/o contrast completed [address] [place], [address], 07/10/2023 18:49:38 09/07/2023 complete PFT w/ post bronchodilator spirometry* completed [facility] ([facility] Call Scheduling) [address] [place], [address], 09/11/2023 12:22:50 Procedure Notes None recorded. Medical Equipment None Reported. Allergies No known drug allergies Medications Name Sig Start Date Stop Date Status Note LastModified by Organization Details LastModified Time levocarniti ne and semaglutide 100,2.65mg/ ml #[id number] INJECT 1.5MG SQ EVERY 7 DAYS. 12/31 completed Not Available Not Available Not Available levocarniti ne and semaglutide #[id number] 100mg, 2.65mg/ml injectable INJECT 1.5MG SQ EVERY 7 DAYS. 12/31 completed Not Available Not Available Not Available atorvastati n 40 mg tablet TAKE ONE TABLET BY MOUTH ONE TIME DAILY active Not Available Not Available No t Available prednisone 10 mg tablet TAKE 1 TAB BY MOUTH EVERY OTHER DAY. IF HAVING FLARE UPS TAKE 1 TAB DAILY UNTIL FLARE UP CEASES active Not Available Not Available No t Available albuterol sulfate 2.5 mg/3 mL (0.083 %) solution for nebulizatio n INHALE 3 ML BY MOUTH VIA NEBULIZER EVERY 6 HOURS NEEDED active Not Available Not Available No t Available azithromyci n 250 mg tablet TAKE 2 TABLETS BY MOUTH TODAY, THEN TAKE 1 TABLET DAILY FOR 4 DAYS DIRECTED 09/26 completed Not Available Not Available Not Available prednisone 20 mg tablet TAKE 3 TABLETS BY MOUTH DAILY X5 DAYS 09/26 completed Not Available Not Available Not Available metronidazo le 500 mg tablet TAKE 1 TABLET BY MOUTH EVERY 8 HOURS FOR 10 DAYS 09/12 completed Not Available Not Available Not Available peg-electro lyte solution 420 gram oral solution DRINK 1/2 SOLUTION AT 5PM ON 04/25/2024 AND 1/2 AT 5AM ON 04/26/2024 . 09/26 completed Not Available Not Available Not Available prednisolon e acetate 1 % eye drops,suspe nsion INSTILL 1 DROP IN BOTH EYES 4X A DAY FOR 2 WEEKS 12/31 completed Not Available Not Available Not Available omeprazole 20 mg capsule,del ayed release TAKE ONE CAPSULE BY MOUTH EVERY DAY IN THE MORNING PRIOR TO A MEAL. active Not Available Not Available No t Available bisacodyl 5 mg tablet,ortega yed release TAKE 6 TABLETS BY MOUTH AT 8AM ON 04/25/202409/26 completed Not Available Not Available Not Available epinephrine 0.3 mg/0.3 mL injection, auto-inject or INJECT THE CONTENTS OF 1 SYRINGE INTO THE MUSCLE ONCE NEEDED FOR ALLERGIC REACTION active Not Available Not Available No t Available levofloxaci n 500 mg tablet TAKE 1 TABLET BY MOUTH EVERY DAY 09/26 completed Not Available Not Available Not Available albuterol sulfate HFA 90 mcg/actuati on aerosol inhaler Inhale 2 puffs every 4 hours by inhalatio n route as needed. 2024 active Not Available Not Available Not Avai lable ipratropium bromide 42 mcg (0.06 %) nasal spray [place] 1 spray 4 times a day by intranasa l route as needed. active Not Available Not Available No t Available metronidazo le 375 mg capsule TAKE 3 TABLETS BY MOUTH 3 TIMES A DAY. 09/26 completed Not Available Not Available Not Available Margie Hopper [facility] spacer USE DIRECTED active Not Available Not Available No t Available Nucala 100 mg/mL subcutaneou s auto-inject or active Not Available Not Available Not Available albuterol sulf 90 mcg/actuati on breath activated powder inhaler,sen sor Inhale 2 puffs as needed by inhalatio n route. 03/21 completed Not Available Not Available Not Available Breztri Aerosphere 160 mcg-9mcg-4. 8mcg/actuat ion HFA aerosol inhaler INHALE 2 PUFFS TWICE A DAY active Not Available Not Available No t Available Flowflex COVID-19 Antigen Home Test kit USE as directed ON package FOR AT home CoVID testing NEEDED 07/05 completed Not Available Not Available Not Available Paxlovid 300 mg (150 mg x 2)-100 mg tablets in a dose pack TAKE 3 TABLETS BY MOUTH TWICE DAILY X 5 DAYS 09/26 completed Not Available Not Available Not Available Vitals Date Recorded Body weight Body mass index (BMI) Body height Body temperature Heart rate Oxygen saturation Oxygen saturation in Arterial blood by Pulse oximetry Systolic blood pressure Diastolic blood pressure Provider Name and Address Organization Details Last Updated DateTime 3 18517.4 1 g 15.4 kg/m2 170.18 cm 98.1 [degF] 86 /min 96 % 96 % 120 mm[Hg] 74 mm[Hg] Kristina Vasquez MA [facility] [employer] 3 14:06:25 Date Recorded Heart rate Respiratory rate Provider N zenon and Address Organization Details Last Updated DateTime 07/05/2023 86 /min 15 /min Lorenzo Gonzalez MD [address] [facility] [address], [place], [address], [facility] [employer] 07/05/2023 14:38:39 Date Recorded Body height Body mass index (BMI) Body weight Body temperature Heart rate Oxygen saturation Oxygen saturation in Arterial blood by Pulse oximetry Systolic blood pressure Diastolic blood pressure Provider Name and Address Organization Details Last Updated DateTime 3 170.18 cm 32 kg/m2 09759.8 4 g 97.6 [degF] 82 /min 95 % 95 % 122 mm[Hg] 84 mm[Hg] Kristina Vasquez [place] [facility] [employer] 3 16:08:59 Date Recorded Heart rate Respiratory rate Provider N zenon and Address Organization Details Last Updated DateTime 09/12/2023 82 /min 15 /min Lorenzo Gonzalez MD [address], [place], [address], [place] [facility] [employer] 09/12/2023 16:37:15 Date Recorded Body height Body mass index (BMI) Body weight Body temperature Heart rate Systolic blood pressure Diastolic blood pressure Provider Name and Address Organization Details Last Updated DateTime 4 168.91 cm 32.8 kg/m2 70521.4 7 g 97.8 [degF] 83 /min 118 mm[Hg] 66 mm[Hg] Marisa Vyas [place] [facility] [employer] 4 12:13:20 Date Recorded Oxygen saturation Oxygen saturation in Arterial blood by Pulse oximetry Heart rate Respiratory rate Provider Name and Address Organization Details Last Updated DateTime 01/22/2024 95 % 95 % 83 /min 14 /min Lorenzo Gonzalez MD [address] [facility], [address], [place], [address], [place] [facility] [employer] 4 12:28:30 Date Recorded Body height Body mass index (BMI) Body weight Body temperature Heart rate Oxygen saturation Oxygen saturation in Arterial blood by Pulse oximetry Pain severity - 0-10 verbal numeric rating [Score] - Reported Systolic blood pressure Diastolic blood pressure Provider Name and Address Organization Details Last Updated DateTime 4 168.91 cm 28.9 kg/m2 43264.8 1 g 97 [degF] 70 /min 97 % 97 % 0 120 mm[Hg] 72 mm[Hg] Marisa Vyas [place] [facility] [employer] 4 14:36:18 Date Recorded Body height Body mass index (BMI) Body weight Body temperature Heart rate Systolic blood pressure Diastolic blood pressure Provider Name and Address Organization Details Last Updated DateTime 5 168.91 cm 28.1 kg/m2 84098.8 5 g 97.7 [degF] 72 /min 128 mm[Hg] 64 mm[Hg] DAYANARA Gutierrez [facility] [email or web address] [facility] 14:50:10 Social History Question Answer Notes LastModified by Organizat ion Details LastModified Time Tobacco Smoking Status Current Some Day Smoker MERARY Hughes, [facility] [email or web address] [facility] 09/26/2024 14:40:04 Do You Have An Advance Directive? No [id number] Information not available 01/26/2023 What Is Your Level Of Alcohol Consumption? Occasional MIGRATION.[id number] Information not available 01/26/2023 What Is Your Level Of Caffeine Consumption? Heavy MIGRATION.52405 08572 Information not available 01/26/2023 In The 14 Days Before Symptom Onset, Have You Had Close Contact With A Laboratory-confi rmed COVID-19 While That Case Was Ill? No MIGRATION.[id number] Information not available 01/26/2023 In The 14 Days Before Symptom Onset, Have You Had Close Contact With A Person Who Is Under Investigation For COVID-19 While That Person Was Ill? No MIGRATION.76190 25123 Information not available 01/26/2023 Are You Currently Employed? Yes Information not available 09/12/2023 What Type Of Diet Are You Following? REGULAR MIGRATION.62159 71270 Information not available 01/26/2023 Do You Have An Electrostatic Air Filter? 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 No Information not available 09/12/2023 Have There Been Any Changes To Your Family Or Social Situation? No Information not available 09/26/2024 When Did You Quit Smoking? 1-5yearssincelastc igarette Information not available 01/22/2024 Do You Have A Humidifier? No MIGRATION.27065 90112 Information not available 01/26/2023 Do You Use Insect Repellent Routinely? No Information not available 09/26/2024 Where Do You Live? [facility] Information not available 09/26/2024 Do You Have A Medical Power Of Icu Specialist? No MIGRATION.67716 75233 Information not available 01/26/2023 Do You Have Moisture Problems In Your Home? No MIGRATION.03490 55499 Information not available 01/26/2023 What Was The Date Of Your Most Recent Tobacco Screening? 12/31/2024 [email or web address] Information not available 12/31/2024 How Many Children Do You Have? 0 Information not available 09/26/2024 Have You Ever Been Counseled For Unhealthy Alcohol Use? No MIGRATION.88054 90162 Information not available 01/26/2023 Do You Have Any Pets? Yes MIGRATION.07390 31231 Information not available 01/26/2023 What Is Your Relationship Status? Information not available 09/26/2024 Do You Use Your Seat Belt Or Car Seat Routinely? Yes Information not available 07/05/2023 Do You Have Smoke And Carbon Monoxide Detectors In Your Home? Yes MIGRATION.98523 56004 Information not available 01/26/2023 At What Age Did You Start Smoking Tobacco? 20 MIGRATION.30196 45593 Information not available 01/26/2023 Are You Passively Exposed To Smoke? Yes Information not available 09/26/2024 Are There Any Smokers In Your House? Yes Information not available 09/26/2024 How Much Tobacco Do You Smoke? 0.5 PPD Not Every Day Information not available 09/26/2024 Do You Feel Stressed (tense, Restless, Nervous, Or Anxious, Or Unable To Sleep At Night)? RP3513-6 Information not available 01/22/2024 Do You Use Any Illicit Or Recreational Drugs? No MIGRATION.96680 53537 Information not available 01/26/2023 Do You Use Sunscreen Routinely? Yes Information not available 09/12/2023 How Many Years Have You Smoked Tobacco? 41 MIGRATION.49248 05023 Information not available 01/26/2023 Have You Recently Traveled Abroad? No MIGRATION.25835 44928 Information not available 01/26/2023 Do You Have Any Dietary Restrictions? No MIGRATION.18152 83066 Information not available 01/26/2023 Do You Or Have You Ever Used Any Other Forms Of Tobacco Or Nicotine? No MIGRATION.29031 73877 Information not available 01/26/2023 Sex: Unknown Functional Status Question Answer Note LastModified by Organizat ion Details LastModified Time What is your exercise level? None [id number].[id number] Information not available 01/26/2023 Mental Status None recorded. Family History Relationship Description Onset Age of this Age Resolved Age Notes LastModified by Organization Details LastModified Time Sister Chronic obstructive pulmonary disease [id number] Not available 01/26/2023 00:57:57 Sister Asthma MIGRATION.732 [id number] Not available 01/26/2023 00:57:57 Brother Asthma MIGRATION.833 [id number] Not available 01/26/2023 00:57:57 Daughter Asthma MIGRATION.233 [id number] Not available 01/26/2023 00:57:57 Mother Serotonin syndrome Not available 2023 12:39:37 Medical History No medical history recorded. Gynecological History Statement/Question Response How many live births 1 Date of Last Colonoscopy Date of Last Mammogram Date of LMP Most Recent Bone Density Date of Last Pap Current Control Method Menopause Obstetrics History GPAL:G 2 P 1 0 1 1 Type Value Multiple Births 0 Full Term 1 Induced 0 Spontaneous 1 Premature 0 Living 1 Ectopics 0 Total 2 Immunizations Vaccine Type Date Status Note Provider Nam e and Address Organization Details Recorded Time Influenza, high-dose, trivalent, PF 09/26/2024 completed DAYANARA Gutierrez, [place] [email or web address] [facility] 09/27/2024 11:17:36 Past Encounters Encounter ID Performer Location Encounter Start Date Encounter Closed Date Diagnosis/Indication Diagnosis SNOMED-CT Code Diagnosis ICD10 Code Diagnosis Note [id number] [facility] [address] [address] 03/02/2022 00:00:00 03/02/2022 16:48:57 [id number] [facility] [address] [address] 03/21/2022 00:00:00 03/21/2022 16:18:38 [id number] [facility] [address] [address] 06/02/2022 00:00:00 08/12/2022 23:46:35 [id number] Lorenzo Gonzalez MD [facility] [place] [address] 07/05/2023 13:50:21 07/05/2023 15:37:29 Severe chronic obstructive pulmonary disease 327873919 J44.9 Multiple n odules of lung 714141094 R91.8 Posterior rhinorrhea 758 07630 R09.82 Smoker 36731533 F17.218 F17.219 Z87.421 [id number] Lorenzo Gonzalez MD [facility] [place] [address] 09/12/2023 15:48:26 09/13/2023 08:35:16 Severe chronic obstructive pulmonary disease 592137346 J44.9 Multiple n odules of lung 647742598 R91.8 Posterior rhinorrhea 758 31515 R09.82 Smoker 00063780 F17.218 F17.219 Z87.891 Eosinophil count above reference range 783486857 D72.10 J45.50 [id number] Lorenzo Gonzalez MD [facility] [place] [address] 01/22/2024 12:04:06 01/25/2024 10:20:44 Severe chronic obstructive pulmonary disease 581922000 J44.9 Posterior rhinorrhea 758 85112 R09.82 Eosinophil count above reference range 334314073 D72.10 J45.50 Ex-smoker 8961444 Z87.89 1 F17.218 F17.966 [id number] [facility]son [facility] [address] [place] [address] [address] 09/26/2024 14:24:46 09/26/2024 15:41:28 Screening - NAD 607769731 Z13.9 C-scope: Did do this with Dr Argueta, as per her history, get labs Mammogram: Get thisDEXA: Get thisPAP: Get this Get yearly flu shotGet tdap if not doneCan do PCV #20Get shingrix and COVID 19 boosters RTC in 6 months as per her wishes, do labs, ER if worse, she did verbalize her understand ing of the above Hyperlipidemia 85276672 E78.5 Not on medsGet labs Chronic ob structive pulmonary disease 10025952 J44.9 On HHNOn brekurttrAshleye s Dr Lisa agrawal apt 10/22/[address] and PFT Ex-smoker 8714318 Z87.[address] Najera LDCT Vitamin D deficiency 347 27622 E55.9 Serum melissa min B12 below reference range 722112216 R79.89 Gastroesop hageal reflux disease without esophagitis 677222480 K21.9 On omeprazole 20mg daily, take PRNShould get EGD done Screening mammography 24 661314 Z12.31 Screening for osteoporosis 817422565 Z13.820 Gynecologi c examination 16912043 Z01.419 Screening for cardiovascular system disease 011040560 Z13.6 Bilateral carpal tunnel syndrome 2947551405 2528949 G56.03 Has been diagnosed with francisco but L>R CTS, EMG done by Dr Arndt as per her historyAgr eeable now to see hand surgeon [id number] Wayne jackson MD [facility] [address] [facility] [place] [address] 12/31/2024 14:29:49 12/31/2024 15:26:08 Screening - NAD 251545143 Z13.9 C-scope: Did do this with Dr Argueta, as per her history, get labs Mammogram: Get thisDEXA: Get thisPAP: Get this Get yearly flu shotGet tdap if not doneCan do PCV #20Get shingrix and COVID 19 boosters RTC in 4 months, do labs, ER if worse, she did verbalize her understand ing of the above Hyperlipidemia 53071680 E78.5 Not on medsGet labs Chronic ob structive pulmonary disease 61707275 J44.9 On Jany Oakes ewed albuterolS een Dr Lowe sees Dr Floyd another pulmonolog ist Dr Rossi get chest CT and PFT Ex-smoker 1059537 Z87.[address] Najera LDCT Vitamin D deficiency 347 82535 E55.9 Serum melissa min B12 below reference range 859934063 R79.89 Gastroesop hageal reflux disease without esophagitis 379812295 K21.9 On omeprazole 20mg daily, take PRNShould get EGD done Screening for cardiovascular system disease 421927455 Z13.[address] Pires, and has a PET CT and f/u apt 02/07/2025 Bilateral carpal tunnel syndrome 1139646132 3699496 G56.03 Has been diagnosed with francisco but L>R CTS, EMG done by Dr Arndt as per her historyAgr eeable now to see hand surgeon, referred again 12/31/2024 to [facility] Concerns Section Related Observation LastModified by Organization Detai ls LastModified Time None Recorded Concern Status LastModified by Organization Details LastModified Time None Recorded Advance Directives Directive N: Payers Encounter Date Sequence Insurance Name Policy Number Policy Chaudhry Covered Member ID Chaudhry Member ID Guarantor Name 07/05/2023 1 [place] [id number] Varinder A Hehle [id number] [place] C Hehle 09/12/2023 1 [place] [id number] Varinder A Hehle [id number] 21 [place]le 01/22/2024 1 [place] [id number] Varinder A Hehle [id number] 21 [place]le 09/26/2024 1 [place] [id number] Varinder A Hehle [id number] 21 [place] C Hehle 12/31/2024 1 [place] [id number] Varinder A Hehle [id number] 21 [place] C [place] Notes Date Note Type Note Provider Name and Address Organization Details Recorded Time 07/05/2023 text/html Primary care/Ref erring provider: Paloma Argueta MD [phone] is here to go over her severe ACO management.Initial development of shortness of breath: 1996Duration of shortness of breath: 27 yearsCondition of shortness of breath: stableTiming of shortness of breath: morningFrequency: up to 4 times a dayLimits activities: yesAggravating factors: walkingAlleviating factors: restModified Medical Research [place] (mMRC) Dyspnea Scale - Grade 1Grade 0 I only get breathless with strenuous exercise .Grade 1 I get short of breath when hurrying on the level or walking up a slight hill .Grade 2 I walk slower than people of the same age on the level because of breathlessness or have to stop for breath when walking at my own pace on the level .Grade 3 I stop for breath after walking about 100 yards or after a few minutes on the level .Grade 4 I am too breathless to leave the house or I am breathless when dressing .Treatment history:Albuterol HFA as needed since 1994 Breztri 160/9/4.8 mcg 2 puffs BID since 2Other symptoms:Productive cough: yellowWheezing: noChest tightness: yesOrthopnea: noFrequent throat clearing or swallowing: yesPalpitations: noHeartburn: noDysphagia: noEdema: noEnvironmental exposures:Nicotine smoke: 03/01 ppd 1994- present (quit 2 years in between) = 20.8 pack yearsPaint: noDye: noDust mites: yesMold: noDamp basement: noWood burning stove: noAnimal dander: dogCockroaches: noPollen: yesArsenic: noAsbestos: noBeryllium: noCadmium: noChromium: noCoal smoke: noDiesel fumes: noNickel: noSilica: noSoot: noEPWORTH SLEEPINESS SCALE (ESS)CHANCE OF DOZING SCORE0 = would never doze1 = slight chance of dozing2 = moderate chance of dozing3 = high chance of dozingSITUATION AND CHANCE OF DOZINGSitting and reading - 0Watching television - 2Sitting inactive in a public place (e.g. a theater or meeting) - 0As a passenger in a car for an hour without a break - 0Lying down to rest in the afternoon when circumstances permit - 3Sitting and talking to someone - 0Sitting quietly after lunch without alcohol - 0In a car, while stopped for a few minutes in the traffic - 0TOTAL SCORE 5Subjectively, patient has a slight chance of dozing. Lorenzo Gonzalez MD [address] [place] [address], [place] [address], [place], [address], [facility] [email or web address] 07/05/2023 14:41:22 09/12/2023 text/html Primary care/Ref erring provider: Paloma Argueta MD [phone] is here to go over her severe ACO management. Initial development of shortness of breath: 1995Duration of shortness of breath: 28 yearsCondition of shortness of breath: stableTiming of shortness of breath: morningFrequency: up to 4 times a dayLimits activities: yesAggravating factors: walkingAlleviating factors: restModified Medical Research [place] (mMRC) Dyspnea Scale - Grade 1Grade 0 I only get breathless with strenuous exercise .Grade 1 I get short of breath when hurrying on the level or walking up a slight hill .Grade 2 I walk slower than people of the same age on the level because of breathlessness or have to stop for breath when walking at my own pace on the level .Grade 3 I stop for breath after walking about 100 yards or after a few minutes on the level .Grade 4 I am too breathless to leave the house or I am breathless when dressing .Treatment history:Albuterol HFA as needed since 1994 Luna 160/9/4.8 mcg 2 puffs BID since 2Other symptoms:Productive cough: yellowWheezing: noChest tightness: yesOrthopnea: noFrequent throat clearing or swallowing: yesPalpitations: noHeartburn: noDysphagia: noEdema: noEnvironmental exposures:Nicotine smoke: / ppd 1994- present (quit 2 years in between) = 20.8 pack yearsPaint: noDye: noDust mites: yesMold: noDamp basement: noWood burning stove: noAnimal dander: dogCockroaches: noPollen: yesArsenic: noAsbestos: noBeryllium: noCadmium: noChromium: noCoal smoke: noDiesel fumes: noNickel: noSilica: noSoot: noEPWORTH SLEEPINESS SCALE (ESS)CHANCE OF DOZING SCORE0 = would never doze1 = slight chance of dozing2 = moderate chance of dozing3 = high chance of dozingSITUATION AND CHANCE OF DOZINGSitting and reading - 0Watching television - 1Sitting inactive in a public place (e.g. a theater or meeting) - 0As a passenger in a car for an hour without a break - 0Lying down to rest in the afternoon when circumstances permit - 2Sitting and talking to someone - 0Sitting quietly after lunch without alcohol - 0In a car, while stopped for a few minutes in the traffic - 0TOTAL SCORE 3Subjectively, patient has a slight chance of dozing. Lorenzo Gonzalez MD [address] [facility], [facility] [address], [place], [address], [place] [facility] 09/12/2023 16:38:14 01/22/2024 text/html Primary care/Ref erring provider: Paloma Argueta MD [phone] is here to go over her severe ACO management. Initial development of shortness of breath: 1994Duration of shortness of breath: 29 yearsCondition of shortness of breath: stableTiming of shortness of breath: morningFrequency: up to 4 times a dayLimits activities: yesAggravating factors: walkingAlleviating factors: restModified Medical Research [place] (mMRC) Dyspnea Scale - Grade 1Grade 0 I only get breathless with strenuous exercise .Grade 1 I get short of breath when hurrying on the level or walking up a slight hill .Grade 2 I walk slower than people of the same age on the level because of breathlessness or have to stop for breath when walking at my own pace on the level .Grade 3 I stop for breath after walking about 100 yards or after a few minutes on the level .Grade 4 I am too breathless to leave the house or I am breathless when dressing .Treatment history:Albuterol HFA as needed since 1994 Hanhztri 160/9/4.8 mcg 2 puffs BID since 2Other symptoms:Productive cough: yellowWheezing: noChest tightness: yesOrthopnea: noFrequent throat clearing or swallowing: yesPalpitations: noHeartburn: noDysphagia: noEdema: noEnvironmental exposures:Nicotine smoke: 03/01 ppd 4524-2344 (quit 2 years in between) = 20.8 pack yearsPaint: noDye: noDust mites: yesMold: noDamp basement: noWood burning stove: noAnimal dander: dogCockroaches: noPollen: yesArsenic: noAsbestos: noBeryllium: noCadmium: noChromium: noCoal smoke: noDiesel fumes: noNickel: noSilica: noSoot: noEPWORTH SLEEPINESS SCALE (ESS)CHANCE OF DOZING SCORE0 = would never doze1 = slight chance of dozing2 = moderate chance of dozing3 = high chance of dozingSITUATION AND CHANCE OF DOZINGSitting and reading - 0Watching television - 2Sitting inactive in a public place (e.g. a theater or meeting) - 0As a passenger in a car for an hour without a break - 1Lying down to rest in the afternoon when circumstances permit - 2Sitting and talking to someone - 0Sitting quietly after lunch without alcohol - 0In a car, while stopped for a few minutes in the traffic - 0TOTAL SCORE 5Subjectively, patient has a slight chance of dozing. Lorenzo Gonzalez MD [address] [employer], [place], [address], [employer] 01/22/2024 12:47:26 09/26/2024 text/html OV 09/26/2024: H ere to establish care Present Hx:HLDCOPDEx smokerGERMADYil CTS Here to discuss above, she is a prior patient of Dr Ellie Fontaine MD [address] [address], [place], [address], [employer] [facility] 09/26/2024 18:45:54 12/31/2024 text/html OV 09/26/2024: H ere to establish care Present Hx:HLDCOPDEx smokerGERDBil CTS Here to discuss above, she is a prior patient of Dr Argueta OV 12/31/2024: Here for her f/u apt, she is doing well today, she has noted some wheezing, she has not yet done her labs as she has been taking care of her mother Wayne Fontaine MD [address], [place], [address], [place] [facility] 12/31/2024 17:58:32 OBGyn Episode No OBEpisode recorded.
--- OUTSIDE RECORDS SUMMARY | 2025-01-08 08:56 | XMS_ITS | Referral Summary ---
Author Organization [facility] Address [address] [place] [id number] Care Team Providers Care Needle Valve Operator Name Role Phone Prasad Fontaine MD Primary Care Provide r Encounters Date Type Department Care Team Description 12/04/2024 11:00 AM SECURITY CHECKER Office Visit [facility] Pulmonary at [address] [place] [address] German Newsome DO Asthma-COPD overlap syndrome (HCC) (Primary Dx); Personal history of nicotine dependence; Chronic rhinosinusitis from Last 3 Months Allergies No known active allergies Medications atorvastatin (LIPITOR) 40 mg tablet Take 1 tablet (40 mg total) by mouth daily Active EPINEPHrine (EpiPen 2-Pj) 0.3 mg/0.3 mL auto-injection syringe Inject 0.3 mL (0.3 mg total) into the muscle as instructed as needed 4 Active ipratropium (ATROVENT) 21 mcg (0.03 %) nasal spray Administer 2 sprays into affected nostril(s) every 12 hours 3 Active Nucala 100 mg/mL auto-injector Inject 1 mL (100 mg total) under the skin every 30 (thirty) days 5 Active omeprazole (PriLOSEC) 20 mg capsule TAKE ONE CAPSULE BY MOUTH EVERY DAY IN THE MORNING PRIOR TO A MEAL. 4 Active prednisoLONE acetate (PRED FORTE) 1 % ophthalmic suspension as needed 4 Active predniSONE (DELTASONE) 10 mg tablet as needed 4 Active albuterol HFA (PROVENTIL HFA,VENTOLIN HFA,PROAIR HFA) 90 mcg/actuation inhaler Inhale 2 puffs every 6 (six) hours as needed for wheezing or shortness of breath 1 each 11 5 Active albuterol 2.5 mg /3 mL (0.083 %) nebulizer solution Take 3 mL (2.5 mg total) by nebulization every 6 (six) hours as needed for wheezing or shortness of breath 75 mL 11 5 Active budesonide-glyc opyr-formoterol (Breztri Aerosphere) 160-9-4.8 mcg/actuation inhaler Inhale 2 puffs 2 (two) times a day 3 each 3 5 12/04/19 26 Active Active Problems No known active problems Social History Tobacco Use Types Packs/Day Years Used Date Smoking Tobacco: Some Days Cigarettes Tobacco Cessation:Ready to Q uit: Not Asked; Counseling Given: Not Answered Comments:Former smoker-started smoking at age 20y/o and quit at age 29 y/o. Started and stopped off and on throughout lifetime. Comments Unknown Sex and Gender Information Value Date Recorded Sex Assigned at Not on file Legal Sex Female 11:45 AM SECURITY CHECKER Gender Identity Not on file Sexual Orientation Not on file Last Filed Vital Signs Vital Sign Reading Time Taken Comments Blood Pressure 132/82 12/04/2024 11:14 AM SECURITY CHECKER Pulse 81 12/04/2024 11:14 AM SECURITY CHECKER Temperature 36.5 C (97.7 F) 12/04/2024 11:14 AM SECURITY CHECKER Respiratory Rate - - Oxygen Saturation 95% 12/04/2024 11:14 AM SECURITY CHECKER Inhaled Oxygen Concentration - - Weight 79.9 kg (176 lb 3.2 oz) 12/04/2024 11:14 AM SECURITY CHECKER Height 170.2 cm (5' 7 ) 12/04/2024 11:14 AM SECURITY CHECKER Body Mass Index 27.6 12/04/2024 11:14 AM SECURITY CHECKER Plan of Treatment Not on file Insurance [facility] Care Teams Needle Valve Operator Relationship Specialty Start Date End Date Prasad Fontaine MD [address] [place] [address] PCP - General Internal Medicine 10/10/24
--- OUTSIDE RECORDS SUMMARY | 2025-01-08 08:56 | XMS_ITS | Clinical Summary ---
Author Organization [facility] Address [address] [place] [address] Care Team Providers Care Asbestos Pipe Supervisor Name Role Phone Prasad Fontaine MD Primary Care Provide r Allergies No known active allergies Medications atorvastatin [...] Active Active Problems No known active problems Encounters Date Type Department Care Team Description 12/04/2024 11:00 AM HOMICIDE INVESTIGATOR Office Visit [facility] Pulmonary at [address] [place] [address] German Newsome DO Asthma-COPD overlap syndrome (HCC) (Primary Dx); Personal history of nicotine dependence; Chronic rhinosinusitis from Last 3 Months Surgical History Surgery Date Site/Laterality Comments BACK SURGERY Medical History Medical History Date Comments Asthma COPD (chronic obstructive pulmonary disease) (HC C) Family History Medical History Relation Name Comments Asthma Brother 1 Kristian accidental Brother 2 Henrique Neuropathy Father Stroke Father Breast cancer Mother Cholecystitis Mother breast removal Mother Asthma Sister Tracey Bladder Cancer Sister Tracey COPD Sister Tracey Heart attack Sister Tracey Relation Name Status Comments Brother 1 Kristian Alive Brother 2 Henrique Father Mother Alive Sister Tracey Alive Social History Tobacco Use Types Packs/Day Years [...] on file Legal Sex Female 11:45 AM HOMICIDE INVESTIGATOR Gender Identity Not on file Sexual Orientation Not on file Obstetrics History Last Filed Vital Signs Vital Sign Reading Time Taken Comments Blood Pressure 132/82 12/04/2024 11:14 AM HOMICIDE INVESTIGATOR Pulse 81 12/04/2024 11:14 AM HOMICIDE INVESTIGATOR Temperature 36.5 C (97.7 F) 12/04/2024 11:14 AM HOMICIDE INVESTIGATOR Respiratory Rate - - Oxygen Saturation 95% 12/04/2024 11:14 AM HOMICIDE INVESTIGATOR Inhaled Oxygen Concentration - - Weight 79.9 kg (176 lb 3.2 oz) 12/04/2024 11:14 AM HOMICIDE INVESTIGATOR Height 170.2 cm (5' 7 ) 12/04/2024 11:14 AM HOMICIDE INVESTIGATOR Body Mass Index 27.6 12/04/2024 11:14 AM HOMICIDE INVESTIGATOR Plan of Treatment Health Maintenance Due Date Last Done Comments Breast Cancer Screening-Mammogram 1959 Cervical Cancer Screening 1959 Colon Cancer Screening-Colonoscopy 1959 Depression Screening 1959 Fall Risk Assessment 1959 Hepatitis C Screening 1959 Osteoporosis Screening-Bone Density Scan 1959 Hepatitis B Screening 1977 Well Visit 65+ 2024 Covid-19 Vaccine ( season) 2024 12/20/2021, 03/29/2021, 03/08/2021 Pneumococcal vaccine 65+ (2 of 2 - PCV) 11/13/2024 11/13/2023 DTaP/Tdap/Td Vaccine (2 - Td or Tdap) 11/13/2033 Zoster Vaccine Completed 02/21/2024, 10/27, 04/18/2017 Influenza Vaccine Completed 09/26/2024, , 12/20/2021 Insurance [facility] Care Teams Asbestos Pipe Supervisor Relationship Specialty Start Date End Date Prasad Fontaine MD [address] [facility] [address] [place], [place] [id number] PCP - General Internal Medicine 10/10/24
--- OUTSIDE RECORDS SUMMARY | 2025-01-08 08:56 | XMS_ITS | Continuity of Care Document ---
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 Name Role Phone Sebastian Floyd MD Unavailable Unavailable Medications Medication Instructions Dosage Effective Dates (start - stop) Status Comments NUCALA AUTOINJECTOR PF 100MG/ML INJECT 1 PEN UNDER THE SKIN EVERY 28 DAYS - Active Aerochamber Plus Z Stat spacer Use with MDI as instructed - Active EpiPen 2-Pj 0.3 mg/0.3 mL injection, auto-injector inject 0.3 milliliter by intramuscular route once as needed for anaphylaxis 0.3 MG - Active Okay to fill generic Shingrix (PF) 50 mcg/0.5 mL intramuscular suspension, kit inject 0.5 milliliter by intramuscular route once 50 MCG - Active Pneumovax-23 25 mcg/0.5 mL injection solution inject 0.5 milliliter by intramuscular route once - Active TDVAX 2 Lf unit-2 Lf unit/0.5 mL intramuscular suspension inject 0.5 mL per intramuscular route once - Active atorvastatin 40 mg tablet take 1 tablet by oral route every day 40 MG - Active albuterol sulfate HFA 90 mcg/actuation aerosol inhaler inhale 2 puff by Inhalation route every 4 - 6 hours as needed 2 puff - Active Breztri Aerosphere 160 mcg-9mcg-4.8mcg/act uation HFA aerosol inhaler inhale 2 puff by inhalation route 2 times every day in the morning and evening 2.00 puff - Active omeprazole 20 mg tablet,delayed release - Active ipratropium bromide 21 mcg (0.03 %) nasal spray spray 2 spray by intranasal route 2- 3 times every day in each nostril 2.00 spray - Active ketotifen 0.025 % (0.035 %) eye drops instill 1 drop by ophthalmic route 2 times every day into affected eye(s) 1.00 drop - Active Procedures Procedure Date Health Risk Assesment Patient Focused Au Highly Complex Drug Administration (Biol ogic) Est (Level 4) OFFICE/OUTPATIENT VISIT Au Injection, Mepolizumab, 1mg Highly Complex Drug Administration (Biol ogic) Est (Level 4) OFFICE/OUTPATIENT VISIT Au Injection, Mepolizumab, 1mg Health Risk Assesment Patient Focused Highly Complex Drug Administration (Biol ogic) EVALUATE PT USE OF INHALER Est (Level 4) OFFICE/OUTPATIENT VISIT Injection, Mepolizumab, 1mg Est (Level 4) OFFICE/OUTPATIENT VISIT Fe Est (Level 4) OFFICE/OUTPATIENT VISIT De Est (Level 5) OFFICE/OUTPATIENT VISIT No New (Level 4) OFFICE/OUTPATIENT VISIT Au Advance Directives Directive Yes / No Effective Date File Name Other Directive No N/A N/A WARNING:The information contained in this section is historical and is provided for information only and does not constitute a legal document or any assurance that the information is still accurate. Please verify the information with the renae of the legal document before using it for clinical purposes. Encounters Encounter Description Practice Location Reason(s) For Visit Diagnoses Date Provider Providers Copied on Encounter [facility], [address] [place] [address], [id number], [place] tel:[phone] [facility] No Information 5 Mariel Cheshil. [address], [place], [address], [place]. tel:[phone] Referring Provider: Lorenzo Gonzalez, [address] [facility] [address], [place], [address]. tel:[phone] [facility], [address] [place] [address], [id number], [place] tel:[phone] [facility] No Information 5 Mariel Cheshil. [address], [place], [address], [place]. tel:[phone] Referring Provider: Lorenzo Gonzalez, [address] [facility] [address], [place], [address]. tel:[phone] Est (Level 4) OFFICE/OUTPA TIENT VISIT [facility], [address] [place] [address], [id number], [place] tel:[phone] [place] [facility] Nucala (chief complaint) Body mass index (BMI) 28.0-28.9, adultSevere persistent asthmaHypogam maglobulinemi aChronic rhinitisTobac co use Jun- 4 Mariel Cheshil. [address], [place], [address], [place]. tel:[phone] Referring Provider: Lorenzo Gonzalez, [address] [facility] [address], [place], [address]. tel:[phone] Est (Level 4) OFFICE/OUTPA TIENT VISIT [facility], [address] [place] [address], [id number], [place] tel:[phone] [facility] ([facility]) Severe persistent asthmaHypogam maglobulinemi aChronic rhinitis Jun- 4 Mariel Cheshil. [address], [place], [place], [facility], . tel:[phone] Referring Provider: Lorenzo Gonzalez, [address] [facility] [address], [place], [address]. tel:[phone] Est (Level 4) OFFICE/OUTPA TIENT VISIT [facility], [address] [place] [address], [id number], tel:[phone] [facility] Nucala (chief complaint) Body mass index (BMI) 29.0-29.9, adultSevere persistent asthmaHypogam maglobulinemi aChronic rhinitisTobac co use 4 Mariel Cheshil. [address], [place], [facility], . tel:[phone] Referring Provider: Lorenzo Gonzalez, [address] [address], [place], [place], [facility] [place]. tel:[phone] [facility], [address] [place] [address], [address] [place] [address], tel:[phone] [facility] No Information 4 Thuy Elvira. [address] [place] [address], [address] [place] [address], [address] [place] [address], . tel:[phone] Referring Provider: Lorenzo Gonzalez, [address] [address], [place], [facility] [place]. tel:[phone] Est (Level 4) OFFICE/OUTPA TIENT VISIT [facility], [address] [place] [address], [id number], tel:[phone] [facility] recurrent infections (chief complaint) Body mass index (BMI) 33.0-33.9, adultHypogamm aglobulinemia Chronic rhinitisSever e persistent asthma Dec- 4 Mariel Cheshil. [address], [place], [facility], [place]. tel:[phone] Referring Provider: Lorenzo Gonzalez [address] [facility] [address], [place], [address]. tel:[phone] Est (Level 4) OFFICE/OUTPA TIENT VISIT [facility], [address] [place] [address], [id number], tel:[phone] [facility] lab review (chief complaint) Hypogammaglob ulinemiaChron ic rhinitisSever e persistent asthmaBody mass index (BMI) 32.0-32.9, adult Dec-11 30- 3 Mariel Cheshil. [address], [place], [address], [place]. tel:[phone] Referring Provider: Lorenzo Gonzalez, [address] [facility] [address], [place], [address]. tel:[phone] Est (Level 5) OFFICE/OUTPA TIENT VISIT [facility], [address] [place] [address], [id number], tel:[phone] [facility] immunodeficie ncy (chief complaint) Body mass index (BMI) 33.0-33.9, adultHypogamm aglobulinemia Chronic rhinitisSever e persistent asthma Sep-- 3 Mraiel Cheshil. [address], [place], [address], [place]. tel:[phone] Referring Provider: Lorenzo Gonzalez, [address] [facility] [address], [place], [address]. tel:[phone] New (Level 4) OFFICE/OUTPA TIENT VISIT [facility], [address] [place] [address], [id number], [place] tel:[phone] [facility] immunodeficie ncy (chief complaint) Body mass index (BMI) 31.0-31.9, adultHypogamm aglobulinemia Chronic rhinitis Jun-0 2 Mariel Cheshil. [address], [place], [address], [place]. tel:[phone] Referring Provider: Lorenzo Gonzalez, [address] [facility] [address], [place], [address]. tel:[phone] Family History Family Member Type Diagnosis Age At Onset Sister Problem (finding) Asthma Grandmother Problem (finding) Rheumatoid arthritis Brother Problem (finding) Asthma Payers Payer name Insurance type Covered republican ID Tawanda garcia(s) [facility] [id number] Social History Type Description Quantity Date Captured Comments Alcohol Use Details Unknown Caffeine Use Details Unknown Tobacco Use Status Smoking Status No Information Sex Female Chief Complaint And Reason For Visit No Information Reason For Referral Reason For Referral No Information Plan Of Treatment Date Type Action Status Goal Tobacco cessation counseling completed Goal Tobacco cessation counseling completed Appointment [place] Ho 4 Mo F/up, Asthma Flare/difficulty Breathing BOOKED Future Order: Lab Order Diptheri a Diamond, IgG ([id number]), Sent on: Sent Future Order: Lab Order Compleme nt Total (CH50) ([id number]), Sent on: Sent Future Order: Lab Order S. Pneum onia-23 Serotypes ([id number]), Sent on: Sent Future Order: Lab Order IgA, IgG , IgM ([id number]), Sent on: Sent Future Order: Lab Order Compleme nt Total (CH50) ([id number]), Sent on: Sent Future Order: Lab Order Mannose Binding Lectin ([id number]), Sent on: Sent Future Order: Lab Order Immunogl obulins A/E/G/M, Serum ([id number]), Sent on: Sent Future Order: Lab Order Tetanus/ Diphtheria Antibody Profile ([id number]), Sent on: Sent Future Order: Lab Order Strep Pn eumo 23 ([id number]), Sent on: Sent Future Order: Lab Order CBC With Differential ([id number]), Sent on: Sent Future Order: Lab Order T- and B -Lymphocyte and Natural Killer Cell Profile ([id number]), Sent on: Sent History Of Present Illness Encounter Date Complaint History Of Prese nt Illness Nucala LV: 06/27/24She gonzalez s hypogammaglobulinemia, asthma/COPD, and MAXIME. She presents for follow up and next dose of Nucala (started 05/15/24).HypogammaglobulinemiaInterval Infections: noneShe got Diphtheria vaccination and Pneumovax on 11/13/23.Non-allergic RhinitisShe is on ipratropium nasal spray PRN, which she finds effective. She tried ocular ketotifen with some improvement in ocular tearing. Lately, her symptoms have been tolerable.Asthma/COPD - ACT: She is on Breztri 160/9/4.8 c g 2 puffs BID and albuterol PRN (currently used nightly - to prevent nocturnal awakenings or pre-exertion). She is on Nucala which she reports has somewhat improved her symptoms.She has required oral steroids for flared symptoms about 5 times in the last year. She does feel her asthma has improved by 50-70% since starting Nucala. She follows with Dr. Gonzalez in Pulmonology. She had quit smoking in early Sep 2023. She has since resumed smoking intermittently. She is trying to quit but continues to smoke. She has GERD on omeprazole daily.She reports her mom was hospitalized with serotonin syndrome recently. Data10/26/23IgIgA: 159IgM: 93IgE: 73CH50: 30 (L)AH50: 90Anti-Spn 23: decreased = 9% protectedAnti-Diphtheria: <0.10 (not protective)Anti-Tetanus: 0.28 (protective)AEC: 309AFlow CytometryCD3+: 79%, 6116SH1+CD4+: 60%, 875 CD3+CD8+: 26%, 378CD4/CD8 Ratio: 2.32CD16+CD56+: 15%, 541ZP32+: 3% (L), 41 (L)4/6/73Rikre-6-Fmctbcisiaz wnlQuantiferon negativeEnvironmental Immunocaps: undetectable with total IgE 96IgG 577 (L)*IgG1 379*IgG2 90 (L)*IgG3 9 (L)*IgG4 18?DateEos 380PFT (02/2023): FEV1 1.15 L (43%) w/ bronchodilator responsePFT (06/2023): FEV1 0.92 L (36%)CT Chest 06/2023: no nodules Nucala LV: 05/15/24She h as hypogammaglobulinemia, asthma/COPD, and MAXIME. She presents for follow up and next dose of Nucala (started 05/15/24).HypogammaglobulinemiaInterval Infections: COVID-19She got Diphtheria vaccination and Pneumovax on 11/13/23.Non-allergic RhinitisShe is on ipratropium nasal spray PRN, which she finds effective. She tried ocular ketotifen with some improvement in ocular tearing. Lately, her symptoms have been tolerable.Asthma/COPDShe is on Breztri 160/9/4.8 c g 2 puffs BID and albuterol PRN (currently about 2-3 times per day). She is on Nucala which she reports has somewhat improved her symptoms.She typically uses albuterol for cough and dyspnea. She has not had nocturnal awakenings due to asthma since starting Nucala - an improvement. She has required oral steroids for flared symptoms about 5 times in the last year. Her asthma acutely flared due to COVID-19 infection as above (treated with prednisone for this flare). She follows with Dr. Gonzalez in Pulmonology, who checked IgG (see below).She had quit smoking in early Sep 2023. She has since resumed smoking intermittently. She plans to quit by our next visit.She has GERD on omeprazole daily.Data10/26/23IgIgA: 159IgM: 93IgE: 73CH50: 30 (L)AH50: 90Anti-Spn 23: decreased = 9% protectedAnti-Diphtheria: <0.10 (not protective)Anti-Tetanus: 0.28 (protective)AEC: 309AFlow CytometryCD3+: 79%, 9574MU8+CD4+: 60%, 875 CD3+CD8+: 26%, 378CD4/CD8 Ratio: 2.32CD16+CD56+: 15%, 758RI89+: 3% (L), 41 (L)03/02/2253Dhpoo-0-Cuurqgmrouv wnlQuantiferon negativeEnvironmental Immunocaps: undetectable with total IgE 96IgG 577 (L)*IgG1 379*IgG2 90 (L)*IgG3 9 (L)*IgG4 18?DateEos 380PFT (02/2023): FEV1 1.15 L (43%) w/ bronchodilator responsePFT (06/2023): FEV1 0.92 L (36%)CT Chest 06/2023: no nodules Nucala LV: 01/04/24She gonzalez s hypogammaglobulinemia, asthma/COPD, and chronic rhinitis. She presents for follow up and first dose of Nucala.HypogammaglobulinemiaInterval Infections: noneShe got Diphtheria vaccination and Pneumovax on 11/13/23.RhinitisShe is on ?ipratropium nasal spray PRN, which she finds effective. She tried ocular ketotifen with some improvement in ocular tearing. Lately, her symptoms have been tolerable.Asthma/COPD - ACT: 08/21She is on Breztri 160/9/4.8 c g 2 puffs BID and albuterol PRN (currently about 4 times per day).She typically uses albuterol for cough and dyspnea. She has had nocturnal awakenings with cough or wheeze. She has required oral steroids for flared symptoms about 4 times in the last year. She has had 4 PCP visits because of flares (that is who prescribed the steroids). No ED or UC visits.She follows with Dr. Gonzalez in Pulmonology, who checked IgG (see below).She had quit smoking in early Sep 2023. She has since resumed smoking intermittently. She has GERD on omeprazole daily.Data10/26/23IgIgA: 159IgM: 93IgE: 73CH50: 30AH50: 90Anti-Spn 23: decreased = 9% protectedAnti-Diphtheria: <0.10 (not protective)Anti-Tetanus: 0.28 (protective)AEC: 309AFlow CytometryCD3+: 79%, 9823AJ7+CD4+: 60%, 875 CD3+CD8+: 26%, 378CD4/CD8 Ratio: 2.32CD16+CD56+: 15%, 669BS38+: 3% (L), 41 (L)03/02/2209Zaacw-5-Wnepvodikur wnlQuantiferon negativeEnvironmental Immunocaps: undetectable with total IgE 96IgG 577 (L)*IgG1 379*IgG2 90 (L)*IgG3 9 (L)*IgG4 18?DateEos 380PFT (02/2023): FEV1 1.15 L (43%) w/ bronchodilator responsePFT (06/2023): FEV1 0.92 L (36%)CT Chest 06/2023: no nodules recurrent infections LV: 3She has hypogammaglobulinemia, asthma/COPD, and chronic rhinitis. She presents for follow up.HypogammaglobulinemiaInterval Infections: acute rhinosinusitis x 1 (not treated with abx) - now close to baselineShe got diphtheria vaccination and Pneumovax on 11/13/23.RhinitisShe is on ipratropium nasal spray PRN. She has not tried ocular ketotifen as recommended at the last visit. She has persistent ocular itch, drainage.Asthma/COPDShe is on Breztri 160/9/4.8 c g 2 puffs BID and albuterol PRN (~2 times per day).She typically uses albuterol for cough and dyspnea. No nocturnal awakenings with cough or wheeze. She has required oral steroids for flared symptoms about 4 times in the last year. She has had 4 PCP visits because of flares (that is who prescribed the steroids). No ED or UC visits.She follows with Dr. Gonzalez in Pulmonology, who checked IgG (see below). She denies having had a Pneumovax.She quit smoking in early Sep 2023. She feels much better since then. She has GERD on omeprazole daily.Data03/02/2280Fjacu-9-Hzlrumdvxpp wnlQuantiferon negativeEnvironmental Immunocaps: undetectable with total IgE 96IgG 577 (L)*IgG1 379*IgG2 90 (L)*IgG3 9 (L)*IgG4 18?DateEos 380PFT (02/2023): FEV1 1.15 L (43%) w/ bronchodilator responsePFT (06/2023): FEV1 0.92 L (36%)CT Chest 06/2023: no zoaekck86/30/23IgIgA: 159IgM: 93IgE: 73CH50: 30AH50: 90Anti-Spn 23: decreased = 9% protectedAnti-Diphtheria: <0.10 (not protective)Anti-Tetanus: 0.28 (protective)AEC: 309AFlow CytometryCD3+: 79%, 2183XV5+CD4+: 60%, 875 CD3+CD8+: 26%, 378CD4/CD8 Ratio: 2.32CD16+CD56+: 15%, 459BZ04+: 3% (L), 41 (L) lab review LV: 09/27/23She h as hypogammaglobulinemia, asthma/COPD, and chronic rhinitis. This visit was performed via telemedicine on the platform [employer] (audio/video). HypogammaglobulinemiaInterval Infections: noneRhinitisShe is on ipratropium nasal spray PRN. She has not tried ocular ketotifen as recommended at the last visit. She has persistent ocular itch.Asthma/COPDShe is on Breztri 160/9/4.8 c g 2 puffs BID and albuterol PRN (~2 times per day).She typically uses albuterol for cough and dyspnea. No nocturnal awakenings with cough or wheeze. She has required oral steroids for flared symptoms about 4 times in the last year. She has had 4 PCP visits because of flares (that is who prescribed the steroids). No ED or UC visits.She follows with Dr. Gonzalez in Pulmonology, who checked IgG (see below). She denies having had a Pneumovax.She quit smoking in early Sep 2023. She feels much better since then. She has GERD on omeprazole daily.Data03/02/2243Bnsem-5-Lldqdyvraeg wnlQuantiferon negativeEnvironmental Immunocaps: undetectable with total IgE 96IgG 577 (L)*IgG1 379*IgG2 90 (L)*IgG3 9 (L)*IgG4 18?DateEos 380PFT (02/2023): FEV1 1.15 L (43%) w/ bronchodilator responsePFT (06/2023): FEV1 0.92 L (36%)CT Chest 06/2023: no hcwepqz30/IgIgA: 159IgM: 93IgE: 73CH50: 30AH50: 90Anti-Spn 23: decreased = 9% protectedAnti-Diphtheria: <0.10 (not protective)Anti-Tetanus: 0.28 (protective)AEC: 309AFlow CytometryCD3+: 79%, 5467OX5+CD4+: 60%, 875 CD3+CD8+: 26%, 378CD4/CD8 Ratio: 2.32CD16+CD56+: 15%, 660UA30+: 3% (L), 41 (L) immunodeficiency LV: 06/28/22She h as hypogammaglobulinemia, asthma/COPD, and chronic rhinitis. She presents for follow up.HypogammaglobulinemiaInterval Infections: noneRhinitisShe is on ipratropium nasal spray PRN. She reports g oopy eyes. She has not tried any eye drops other than artificial tears.Asthma/COPDShe is on Breztri 160/9/4.8 c g 2 puffs BID and albuterol PRN (5 times daily).She typically uses albuterol for cough and dyspnea. She does wake from sleep nightly with cough. She has required oral steroids for flared symptoms about 4 times in the last year. She has had 4 PCP visits because of flares (that is who prescribed the steroids). No ED or UC visits.She follows with Dr. Gonzalez in Pulmonology, who checked IgG (see below). She denies having had a Pneumovax.She resumed smoking. She smokes 0.5 ppd (x 41 years).She has GERD on omeprazole daily.Data03/02/2241Otmlo-0-Amfdmymhuhy wnlQuantiferon negativeEnvironmental Immunocaps: undetectable with total IgE 96IgG 577 (L)*IgG1 379*IgG2 90 (L)*IgG3 9 (L)*IgG4 18?DateEos 380PFT (02/2023): FEV1 1.15 L (43%) w/ bronchodilator responsePFT (06/2023): FEV1 0.92 L (36%)CT Chest 06/2023: no nodules immunodeficiency Hypogammaglobul inemia Conjunctivitis: 0OM: 0 Sinusitis: 0Bronchitis: 0Pneumonia: 0SSTI: 0Hospitalizations: 0 for infectionOther Infections: Bossman does not report frequent infections. Her daughter reportedly also has hypogammaglobulinemia. She has some asthma-COPD overlap on Breztri 160/9/4.8 ?cg 2 puffs BID and albuterol PRN. She follows with Dr. Gonzalez in Pulmonology, who checked IgG (see below). She denies having had a Pneumovax. ACT: .RhinitisAlejandra is on intranasal atrovent. She reports nasal congestion. Her symptoms are adequately controlled on the intranasal ipratropium. She has not had any recent sinus infections (as above).She has GERD on omeprazole 20 mg daily.PMH: DLD, otherwise as abovePSH: back surgeryMedication Allergies: NKDAFHAsthma - daughter, brother, sisterNo FH of RA, SLE, or immune deficiencySHTobacco: Former Smoker (0.5 ppd x 40 years; quit 2021)Environmental HistoryLives in a house w/ central air/forced heat, w/o evidence of mold/water damagePets: dog x 1DataI reviewed outside records available in the EMR03/02/2258Vggtj-4-Rrmdnebpfbh wnlQuantiferon negativeEnvironmental Immunocaps: undetectable with total IgE 96IgG 577 (L)*IgG1 379*IgG2 90 (L)*IgG3 9 (L)*IgG4 18?DateEos 380 Functional Status Date Functional Assessmen t No Information Instructions Date Instruction Additional Infor chu Giving encouragement to exercise Related to Body mass index [BMI] 28.0-28.9, adult Giving encouragement to exercise Related to Body mass index [BMI] 29.0-29.9, adult Giving encouragement to exercise Related to Body mass index [BMI] 33.0-33.9, adult Giving encouragement to exercise Related to Body mass index [BMI] 32.0-32.9, adult - try ketotifen (Zad itor) eye drops twice daily as needed Related to Chronic rhinitis *labs must be drawn before 2 pm between Monday and *labs should be drawn when off of steroids for 4+ weeks Related to Hypogammaglobulinemia Giving encouragement to exercise Related to Body mass index [BMI] 33.0-33.9, adult Giving encouragement to exercise Related to Body mass index [BMI] 31.0-31.9, adult Assessments Type Assessment Date No Information Patient Care Teams Name Effective Dates (start - stop) Status Members No Information
[2025-01-08 11:22] LABS: Influenza A QL RT-PCR Positive (Negative); Influenza B QL RT-PCR Negative (Negative); RSV RNA, RT-PCR Negative (Negative); SARS-CoV-2 RNA PCR Negative (Negative)
[2025-01-08] MEDS: IPRATROPIUM 0.5 MG/ALBUTEROL SULFATE 2.5 MG AMPUL.NEB 3 ML INHALATION (13:11)
--- NOTE | 2025-01-08 13:59 | P.HP_ITS ---
H&P: HPI History of Present Illness Date/Time: 01/08/25 13:59 Chief Complaint: Shortness of breath Narrative: 64-year-old female with past medical history of asthma presents the hospital with shortness of breath. Patient states that her inhalers were not helping. EMS found her to be hypoxic on room air. Patient states that increased shortness of breath has progressed over the last 2 days. Today her shortness of breath was so bad she had to call 911. Denies fevers chills nausea or vomiting. Patient was given nebulizers, Solu-Medrol and magnesium by EMS in route without much improvement ED shows glucose of 170, positive for influenza a, influenza B, RSV, COVID negative. Chest x-ray shows no acute cardiopulmonary process. EKG shows sinus rhythm rate of 95, QTC of 447. Review of Systems Review of Systems: 12 systems were reviewed and are negativ e except for as per HPI. [facility] Family History Family History (Updated 01/08/25 @ 14:07 by Frank Colin RN) Sibling Acute myocardial infarction Chronic lung disease Father Cerebrovascular accident Sibling Chronic lung disease Social History Social History Smoking packs per day: 0.5 Smoking cigarettes per day: 10.0 Years smoked: 41 Smoking pack-years: 20.50 Smoking status: Current every day smoker Tobacco type: cigarettes Smoking end date: 01/06/25 Alcohol intake: never Substance use: current Substance use type: does not use Do You Feel Safe in your Home?: Yes Lack of Transportation: No Lack of Food: Never True Current Housing: I Have Housing Concerned About Future Housing: No Difficulty Paying Gas/Electric Bills: No Difficulty Paying for Meds: No Currently Unemployed: No Education: High School Diploma/GED Difficulty w/ Childcare or Family Care: No Spiritual care concerns: No Meds Home Medications and Allergies Home Medications ?Medication ?Instructions ?Recorded ?Confirmed ?Type albuterol sulfate 2.5 mg/3 mL 2.5 mg inhalation Q6-8H PRN 01/08/25 01/08/25 History (0.083 %) solution for nebulization shortness of breath or wheezing albuterol sulfate 90 mcg/actuation 2 inh inhalation Q6-8H PRN 01/08/25 01/08/25 History aerosol inhaler shortness of breath or wheezing atorvastatin 40 mg tablet 40 mg PO QAM 01/08/25 01/08/25 History budesonide 160 mcg-glycopyr 9 2 inh inhalation QAM AND QPM 01/08/25 01/08/25 History mcg-formot 4.8 mcg/actuation HFA inhaler (BrezAppointeddi statusboomphere) mepolizumab 100 mg/mL subcutaneous 300 mg subcut MONTHLY 01/08/25 01/08/25 History auto-injector (Nucala) omeprazole 20 mg capsule,delayed 20 mg PO QAM 01/08/25 01/08/25 History release Allergies Allergy/AdvReac Type Severity Reaction Status Date / Time No Known Allergies Allergy Verified 01/08/25 09:31 Vital Signs Vital Signs - 24 hr 01/08/25 07:58 01/08/25 08:05 01/08/25 08:10 Temperature 98.2 F Pulse Rate 103 H Respiratory Rate 26 H Blood Pressure 129/75 Pulse Oximetry 99 97 Oxygen Delivery Room Air Room Air Nasal Cannula Oxygen Flow Rate 2 01/08/25 08:38 01/08/25 08:46 01/08/25 09:01 Temperature Pulse Rate 105 H 97 109 H Respiratory Rate 22 H 23 H 22 H Blood Pressure 116/77 120/62 Pulse Oximetry 99 99 Oxygen Delivery Oxygen Flow Rate 01/08/25 09:16 01/08/25 09:30 01/08/25 09:31 Temperature Pulse Rate 96 98 100 Respiratory Rate 19 20 22 H Blood Pressure 120/52 L 119/73 Pulse Oximetry 100 97 Oxygen Delivery Oxygen Flow Rate 01/08/25 10:32 01/08/25 11:16 01/08/25 11:31 Temperature Pulse Rate 88 88 85 Respiratory Rate 24 H 18 24 H Blood Pressure 115/62 123/66 131/70 Pulse Oximetry 96 97 98 Oxygen Delivery Oxygen Flow Rate 01/08/25 11:46 01/08/25 12:01 01/08/25 12:30 Temperature Pulse Rate 86 84 84 Respiratory Rate 19 19 18 Blood Pressure 136/66 134/74 166/66 H Pulse Oximetry 97 97 97 Oxygen Delivery Oxygen Flow Rate 01/08/25 13:12 01/08/25 13:24 Temperature Pulse Rate 94 78 Respiratory Rate 33 H 20 Blood Pressure Pulse Oximetry Oxygen Delivery Oxygen Flow Rate Exam Narrative: General: well appearing, appears stated age. HEENT: normocephalic, atraumatic. Mucous membranes moist. EOMI, PERRLA, bilateral sclera anicteric, no conjunctival injection. Neck supple without JVD, lymphadenopathy, or bruit. Respiratory: Inspiratory and expiratory wheezes in all ramos Cardiovascular: Regular rate and rhythm, normal S1-S2 upon ascultation. No murmurs, rubs, or clicks. PMI is nondisplaced, capillary refill less than 3 second. Abdomen: Soft, round, no pulsatile masses, nondistended and nontender. No rebound, no guarding. No CVA tenderness, no hepatosplenomegaly. Bowel sounds present to all four quadrants. No high pitch or tinkling sounds, resonant to percussion. Extremities: No cyanosis, clubbing, or edema present. Pulses are palpable 2/2. Active ROM to all four extremities. Neuro: Alert and orientated x 4. PERRLA. Cranial nerves 2-12 intact without focal deficit. Skin: Warm, dry, and intact, without rash, erythema, or lesion. Psych: pleasant, cooperative, normal speech, normal affect, no hallucinations, no dysarthia H&P: Results Labs Labs: Short CBC 01/08/25 Range/Units 08:16 WBC 7.8 (4.5-10.0) K/mm3 Hgb 14.5 (12.0-15.0) g/dL Hct 44.6 (37.0-47.0) % Plt Count 196 (150-375) k/mm3 BMP 01/08/25 08:16 Sodium 137 Potassium 4.1 Chloride 104 Carbon Dioxide 22 BUN 15 Creatinine 0.64 L Glucose 170 H Calcium 8.8 Liver Function 01/08/25 Range/Units 08:16 Total Bilirubin 0.7 (0.2-1.3) mg/dL AST 32 (14-36) U/L ALT 30 (6-35) U/L Alkaline Phosphatase 125 (38-126) U/L Albumin 4.1 (3.5-5.1) g/dL Assessment and Plan Assessment and plan (1) Asthma attacks lasting more than 24 hours: Code(s): J45.901 - Unspecified asthma with (acute) exacerbation Status: Acute Assessment and Plan: No pneumonia seen on chest x-ray Solu-Medrol given by EMS Prednisone daily DuoNeb q.4 hours in p.r.n. (2) Hyperglycemia: Code(s): R73.9 - Hyperglycemia, unspecified Status: Acute Assessment and Plan: Not on home medication, could be due to steroids Will add sliding scale due to steroid Accu-Cheks a.c. HS Hemoglobin A1c pending (3) Hyperlipidemia: Code(s): E78.5 - Hyperlipidemia, unspecified Status: Acute Assessment and Plan: Continue home statin Quality VTE Prophylaxis VTE prophylaxis: mechanical ordered If No VTE Prophylaxis Answer both mechanical and pharmacologic: Reason no pharmacologic proph: low risk/not indicated Hospitalist MIPS Advance Care Plan I have confirmed that the patient's Advanced Care Plan is present, code status is documented, or surrogate decision maker is listed in patient medical record.: Yes Medication Reconciliation I have utilized all available resources to obtain, update and review the patients current medications (includes all prescriptions, OTC, herbals, cannabis, and nutritional supplements).: Yes
--- NOTE | 2025-01-08 14:02 | ADMGEN ---
This patient, Virginia Ho, was admitted to Medical Room 344-01. Patient/family oriented to hospital policies and general routines including ID bracelet, bed and alarms, visiting hours, pain management, procedures, bathroom and other care routines, personal items, smoking policy, room service/diet, and visiting hours. Information on how to activate the Rapid Response Team has been discussed. Patient/Family are encouraged to report perceived risks to care and to ask questions if they do not understand what they are told or what they should do.
[2025-01-08 17:59] LABS: Glucose Point of Care 125 mg/dl (65-105)
[2025-01-08] MEDS: ACETAMINOPHEN 325 MG TABLET 650 MG PO (20:47)
[2025-01-08 21:07] LABS: Glucose Point of Care 118 mg/dl (65-105)
[2025-01-08] MEDS: OSELTAMIVIR PHOSPHATE 75 MG CAPSULE PO (23:49)
[2025-01-09] VITALS (21 sets, daily range): BP systolic 109–139; BP diastolic 66–77; PULSE 72–116; RESP 18–24; TEMP 36.2–37.3; O2SAT 87–98
[2025-01-09] MEDS: IPRATROPIUM 0.5 MG/ALBUTEROL SULFATE 2.5 MG AMPUL.NEB 3 ML INHALATION ×6 (00:35→21:21)
[2025-01-09 05:31] LABS: Basophils Percent Auto 0.2 % (0.2-1.2); Eosinophils Percent Auto 0.3 % (0-4.4); Hematocrit 44.5 % (37.0-47.0); Hemoglobin 14.2 g/dL (12.0-15.0); Immature Granulocyte Absolute 0.02 K/mm3 (0.00-0.031); Immature Granulocyte Percent A 0.3 % (0-0.5); Lymphocytes Absolute Auto 0.76 K/mm3 (0.9-3.2); Lymphocytes Percent Auto 11.6 % (18.3-44.2); Mean Corpuscular HGB Conc 31.9 g/dl (32-36); Mean Corpuscular Hemoglobin 30.5 pg (26-34); Mean Corpuscular Volume 95.7 fl (80-100); Mean Platelet Volume 9.4 fl (7.4-10.4); Monocytes Absolute Auto 0.6 K/mm3 (0.1-0.6); Monocytes Percent Auto 9.3 % (2.6-8.5); Neutrophils Absolute Auto 5.2 K/mm3 (1.3-6.7); Neutrophils Percent Auto 78.3 % (45.5-73.1); Platelet Count Result 180 k/mm3 (150-375); Red Blood Count 4.65 M/mm3 (4.2-5.4); Red Cell Distribution Width 13.2 % (11.5-14.5); White Blood Count 6.6 K/mm3 (4.5-10.0)
[2025-01-09 05:54] LABS: Anion Gap 9 mmol/L (4-12); Blood Urea Nitrogen 19 mg/dL (7-17); Calcium 8.7 mg/dL (8.4-10.2); Carbon Dioxide 24 mmol/L (22-30); Chloride 106 mmol/L (98-107); Estimated CRCL calculation 74 ml/min; Estimated Glomerular Filt Rate > 60; Glucose 88 mg/dL (65-110); Potassium 4.2 mmol/L (3.4-5.0); Sodium 139 mmol/L (137-145)
[2025-01-09 05:56] LABS: Hemoglobin A1C 5.7 % (<5.7)
[2025-01-09 09:21] LABS: Glucose Point of Care 91 mg/dl (65-105)
--- NOTE | 2025-01-09 09:30 | P.PNIM_ITS ---
Progress Note: A&P Assessment and Plan (1) Acute hypoxic respiratory failure: Code(s): J96.01 - Acute respiratory failure with hypoxia Status: Acute Assessment and Plan: * Chest x-ray was negative for any acute cardiopulmonary disease * Respiratory panel positive for influenza A * Continue DuoNebs * Continue to wean O2 for sat greater than 92%, currently on 4 L nasal cannula * Mucinex ordered * Incentive spirometer ordered for use while awake * Pep therapy with cornet flutter valve * Hydroxyzine ordered for anxiety (2) Influenza A: Code(s): J10.1 - Influenza due to other identified influenza virus with other respiratory manifestations Status: Acute Assessment and Plan: * Respiratory panel positive for influenza A * Discontinued prednisone as it has in increased mortality risk in patients with influenza A * Continue to wean O2 for sat greater than 92%, currently on 4 L nasal cannula * Continue DuoNebs * Continue Tamiflu x5 days (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 Workup in the hospital included a chest x- ray which was negative for any acute cardiopulmonary disease. Initial labs showed a normal white blood cell count of 7.8, otherwise unremarkable. Respiratory panel was positive for influenza A. EKG showed sinus rhythm with a rate of 95, QTC 447. Patient was given DuoNeb and started on Tamiflu. Subjective: Patient reports desaturation with activity and gets very anxious according to nursing staff. She is currently on 4 L nasal cannula. Labs and imaging reviewed. Review of Systems Review of Systems: 12 systems were reviewed and are negativ e except for as per HPI. All systems reviewed & are unremarkable except as noted in HPI and below Exam Narrative: General: In no acute distress, well nourished Head: atraumatic, no encephalopathy Eyes: PERRLA, sclera clear ENT: moist mucous membranes, nasal passages clear Neck: supple, no JVD, no adenopathy, trachea midline Cardiac: Normal S1 and S2. No murmur, gallops or friction rubs, peripheral pulses intact. Respiratory: Lungs mild expiratory wheezing noted bilaterally, no adventitious lung sounds, currently on 4 L nasal cannula Gastrointestinal: soft, non-distended, non-tender, normoactive bowel sounds. : voiding without difficulty. Extremities: moves all extremities well, no edema Skin: clean, dry, intact. No wounds or lesions. Neuro: Alert and oriented x4, cranial nerves intact, no neuro deficits. Psych: normal mood, normal affect, interactive Objective Data Vital Signs Vital Signs: Vital Signs - 24 hr 01/08/25 09:31 01/08/25 10:32 01/08/25 11:16 Temperature Pulse Rate 100 88 88 Respiratory Rate 22 H 24 H 18 Blood Pressure 119/73 115/62 123/66 Pulse Oximetry 97 96 97 Oxygen Delivery Oxygen Flow Rate 01/08/25 11:31 01/08/25 11:46 01/08/25 12:01 Temperature Pulse Rate 85 86 84 Respiratory Rate 24 H 19 19 Blood Pressure 131/70 136/66 134/74 Pulse Oximetry 98 97 97 Oxygen Delivery Oxygen Flow Rate 01/08/25 12:30 01/08/25 13:12 01/08/25 13:24 Temperature Pulse Rate 84 94 78 Respiratory Rate 18 33 H 20 Blood Pressure 166/66 H Pulse Oximetry 97 Oxygen Delivery Oxygen Flow Rate 01/08/25 14:00 01/08/25 19:55 01/08/25 20:00 Temperature 97.3 F L 98.0 F Pulse Rate 76 84 86 Respiratory Rate 19 22 H 20 Blood Pressure 105/57 L 114/86 Pulse Oximetry 96 90 Oxygen Delivery Oxygen Flow Rate 01/08/25 23:36 01/09/25 00:35 01/09/25 00:45 Temperature 98.3 F Pulse Rate 76 88 84 Respiratory Rate 17 20 20 Blood Pressure 123/62 Pulse Oximetry 100 Oxygen Delivery Oxygen Flow Rate 01/09/25 03:39 01/09/25 03:58 01/09/25 04:10 Temperature 98.3 F Pulse Rate 92 78 89 Respiratory Rate 18 20 20 Blood Pressure 116/68 Pulse Oximetry 98 Oxygen Delivery Oxygen Flow Rate 01/09/25 08:19 01/09/25 08:20 01/09/25 08:42 Temperature Pulse Rate 90 90 105 H Respiratory Rate 24 H 24 H 20 Blood Pressure Pulse Oximetry 87 L Oxygen Delivery Nasal Cannula Oxygen Flow Rate 3 01/09/25 08:42 01/09/25 09:06 Temperature Pulse Rate 105 H Respiratory Rate 20 Blood Pressure Pulse Oximetry 95 93 Oxygen Delivery Nasal Cannula Nasal Cannula Oxygen Flow Rate 4 4 Intake/Output Intake/Output: Intake & Output 01/06/25 01/07/25 01/08/25 01/09/25 23:59 23:59 23:59 23:59 Intake Total 720 120 Balance 720 120 Meds/Results Medications: Active Medications Generic Name Dose Route Start Last Admin Trade Name Freq PRN Reason Stop Dose Admin Acetaminophen 650 mg 01/08/25 14:06 01/08/25 20:47 Acetaminophen 325 Mg Tablet PO 650 mg Q4H PRN Administration Mild Pain (1-3) or Fever Albuterol/Ipratropium 3 ml 01/09/25 01:00 01/09/25 08:19 Ipratropium 0.5 Mg/Albuterol Sulfate 2.5 Mg Ampul.Neb 3 Ml INHALATION 3 ml Q4HR MORIS Administration Albuterol/Ipratropium 3 ml 01/08/25 23:15 Ipratropium 0.5 Mg/Albuterol Sulfate 2.5 Mg Ampul.Neb 3 Ml INHALATION Q6HRT PRN Bronchospasm Atorvastatin Calcium 40 mg 01/09/25 09:00 Atorvastatin 40 Mg Tablet PO QAM MORIS Dextrose 12.5 gm 01/08/25 14:06 Dextrose 50% 25 Gm/50 Ml Syringe IV PUSH PRN PRN Hypoglycemia Protocol Glucagon 1 mg 01/08/25 14:06 Glucagon For Inj 1 Mg Vial IM PRN PRN Hypoglycemia Protocol Glucose 15 gm 01/08/25 14:06 Glucose Oral Gel 15 Gm Of Glucse In 37.5 Gm Tube PO PRN PRN Hypoglycemia Protocol Dextrose 1,000 mls @ 100 mls/hr 01/08/25 14:06 Dextrose 5% 1,000 Ml IVPB PRN PRN Hypoglycemia Protocol Insulin Aspart 2 - 5 units 01/08/25 17:00 01/08/25 17:51 Insulin Aspart (*Bkc) 100 Units/Ml SUB-Q Not Given TIDWM MORIS Protocol Insulin Aspart 1 - 2 units 01/08/25 21:00 01/08/25 23:01 Insulin Aspart (*Bkc) 100 Units/Ml SUB-Q Not Given HS [facility] Protocol Oseltamivir Phosphate 75 mg 01/08/25 23:20 01/08/25 23:49 Oseltamivir Phosphate 75 Mg Capsule PO 01/13/25 23:19 75 mg Q12HR MORIS Administration Prednisone 40 mg 01/09/25 08:00 Prednisone 20 Mg Tablet PO 01/14/25 07:59 DAILY@0800 [facility] Radiology Results: ITS Impressions Chest X-Ray 01/08/25 09:46 IMPRESSION: 1. No acute cardiopulmonary disease. Labs Labs: Laboratory Results - last 24 hr 01/08/25 01/08/25 01/08/25 10:32 17:19 20:08 WBC RBC Hgb Hct MCV MCH MCHC RDW Plt Count MPV Immature Gran % (Auto) Neut % (Auto) Lymph % (Auto) [place] % (Auto) Eos % (Auto) Baso % (Auto) Lymph # (Auto) [place] # (Auto) Eos # (Auto) Baso # (Auto) Abs Immat Gran (auto) Absolute Neuts (auto) Absolute Nucleated RBC Nucleated RBC % Sodium Potassium Chloride Carbon Dioxide Anion Gap BUN Creatinine Estim Creat Clear Calc Estimated GFR Glucose POC Capillary Glucose 125 H 118 H Hemoglobin A1c Calcium Influenza A (RT-PCR) Positive A Influenza B (RT-PCR) Negative RSV (RT-PCR) Negative SARS-CoV-2 RNA (RT-PCR) Negative 01/09/25 01/09/25 05:21 09:16 WBC 6.6 RBC 4.65 Hgb 14.2 Hct 44.5 MCV 95.7 MCH 30.5 MCHC 31.9 L RDW 13.2 Plt Count 180 MPV 9.4 Immature Gran % (Auto) 0.3 Neut % (Auto) 78.3 H Lymph % (Auto) 11.6 L [place] % (Auto) 9.3 H Eos % (Auto) 0.3 Baso % (Auto) 0.2 Lymph # (Auto) 0.76 L [place] # (Auto) 0.6 Eos # (Auto) 0.0 Baso # (Auto) 0.0 Abs Immat Gran (auto) 0.02 Absolute Neuts (auto) 5.2 Absolute Nucleated RBC 0.000 Nucleated RBC % 0.0 Sodium 139 Potassium 4.2 Chloride 106 Carbon Dioxide 24 Anion Gap 9 BUN 19 H Creatinine 0.69 L Estim Creat Clear Calc 74 Estimated GFR > 60 Glucose 88 POC Capillary Glucose 91 Hemoglobin A1c 5.7 Calcium 8.7 Influenza A (RT-PCR) Influenza B (RT-PCR) RSV (RT-PCR) SARS-CoV-2 RNA (RT-PCR) Quality VTE Prophylaxis VTE prophylaxis: mechanical ordered
[2025-01-09] MEDS: OSELTAMIVIR PHOSPHATE 75 MG CAPSULE PO ×2 (09:43→20:31)
[2025-01-09] MEDS: ATORVASTATIN 40 MG TABLET PO (09:43)
[2025-01-09] MEDS: ACETAMINOPHEN 325 MG TABLET 650 MG PO (17:40)
[2025-01-09] MEDS: guaiFENesin 12 HR 600 MG TABCR 1200 MG PO (20:31)
[2025-01-10] VITALS (19 sets, daily range): BP systolic 108–123; BP diastolic 54–78; PULSE 74–87; RESP 16–24; TEMP 36.1–36.9; O2SAT 93–98
[2025-01-10] MEDS: IPRATROPIUM 0.5 MG/ALBUTEROL SULFATE 2.5 MG AMPUL.NEB 3 ML INHALATION ×7 (04:20→23:13)
[2025-01-10] MEDS: ACETAMINOPHEN 325 MG TABLET 650 MG PO ×2 (04:44→21:00)
[2025-01-10] MEDS: guaiFENesin 12 HR 600 MG TABCR 1200 MG PO ×2 (10:42→21:00)
[2025-01-10] MEDS: OSELTAMIVIR PHOSPHATE 75 MG CAPSULE PO ×2 (10:42→21:01)
[2025-01-10] MEDS: ATORVASTATIN 40 MG TABLET PO (10:42)
--- NOTE | 2025-01-10 13:48 | PM.IMPN ---
Progress Note: A&P Assessment and Plan (1) Acute hypoxic respiratory failure: Code(s): J96.01 - Acute respiratory failure with hypoxia Status: Acute Assessment and Plan: Chest x-ray was negative for any acute cardiopulmonary disease Respiratory panel positive for influenza A Continue DuoNebs Continue to wean O2 for sat greater than 92%, weaned from 4 L>3L nasal cannula Mucinex ordered Incentive spirometer ordered for use while awake Pep therapy with cornet flutter valve Hydroxyzine ordered for anxiety Discussed with pulmonary and avoiding steroids with flu A per uptoday recommendations (2) Influenza A: Code(s): J10.1 - Influenza due to other identified influenza virus with other respiratory manifestations Status: Acute Assessment and Plan: Respiratory panel positive for influenza A Discontinued prednisone as it has in increased mortality risk in patients with influenza A Continue to wean O2 for sat greater than 92%, currently on 4 L nasal cannula Continue DuoNebs Continue Tamiflu x5 days (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 Weaned from 4L>3L. No wheezing on exam/decreased, but breathing treatments are helping. Avoiding steroids since Flu A positive Hospital course: This is a 64-year-old female with history of eosinophilic asthma, hyperlipidemia who presented to the hospital with acute respiratory failure with hypoxia requiring 4 L nasal cannula. Workup in the hospital included a chest x-ray which was negative for any acute cardiopulmonary disease. Initial labs showed a normal white blood cell count of 7.8, otherwise unremarkable. Respiratory panel was positive for influenza A. EKG showed sinus rhythm with a rate of 95, QTC 447. Patient was given DuoNeb and started on Tamiflu. Review of Systems Review of Systems: 12 systems were reviewed and are negative except for as per HPI. All systems reviewed & are unremarkable except as noted in HPI and below Exam Narrative: General: In no acute distress, well nourished Head: atraumatic, no encephalopathy Eyes: PERRLA, sclera clear ENT: moist mucous membranes, nasal passages clear Neck: supple, no JVD, no adenopathy, trachea midline Cardiac: Normal S1 and S2. No murmur, gallops or friction rubs, peripheral pulses intact. Respiratory: Lungs no wheezing, decreased all lobes noted bilaterally, no adventitious lung sounds, currently on 3L O2 Gastrointestinal: soft, non-distended, non-tender, normoactive bowel sounds. : voiding without difficulty. Extremities: moves all extremities well, no edema Skin: clean, dry, intact. No wounds or lesions. Neuro: Alert and oriented x4, cranial nerves intact, no neuro deficits. Psych: normal mood, normal affect, interactive Objective Data Vital Signs Vital Signs: Vital Signs - 24 hr 01/09/25 13:55 01/09/25 14:07 01/09/25 14:07 Temperature Pulse Rate 103 H 105 H Respiratory Rate 24 H 20 Blood Pressure Pulse Oximetry 91 Oxygen Delivery Nasal Cannula Oxygen Flow Rate 4 Fraction of Inspired Oxygen 01/09/25 16:00 01/09/25 17:10 01/09/25 17:20 Temperature 99 F Pulse Rate 104 H 107 H 116 H Respiratory Rate 22 H 24 H 24 H Blood Pressure 137/77 Pulse Oximetry 94 Oxygen Delivery Oxygen Flow Rate Fraction of Inspired Oxygen 01/09/25 20:00 01/09/25 21:21 01/09/25 21:21 Temperature 98.4 F Pulse Rate 100 75 Respiratory Rate 20 22 H Blood Pressure 109/73 Pulse Oximetry 92 93 Oxygen Delivery Nasal Cannula Oxygen Flow Rate 4 Fraction of Inspired Oxygen 36 01/09/25 21:32 01/09/25 22:58 01/10/25 01:00 Temperature 98.0 F Pulse Rate 80 72 80 Respiratory Rate 22 H 18 20 Blood Pressure 110/68 Pulse Oximetry 98 Oxygen Delivery Oxygen Flow Rate Fraction of Inspired Oxygen 01/10/25 04:00 01/10/25 04:35 01/10/25 04:43 Temperature 98.4 F Pulse Rate 74 77 84 Respiratory Rate 18 20 20 Blood Pressure 108/54 L Pulse Oximetry 98 Oxygen Delivery Oxygen Flow Rate Fraction of Inspired Oxygen 01/10/25 08:20 01/10/25 08:20 01/10/25 08:35 Temperature Pulse Rate 87 78 Respiratory Rate 20 20 Blood Pressure Pulse Oximetry 94 Oxygen Delivery Nasal Cannula Oxygen Flow Rate 3 Fraction of Inspired Oxygen 01/10/25 08:45 01/10/25 12:48 Temperature 97.4 F L 97.3 F L Pulse Rate 79 85 Respiratory Rate 18 18 Blood Pressure 118/57 L 114/78 Pulse Oximetry 94 96 Oxygen Delivery Oxygen Flow Rate Fraction of Inspired Oxygen Intake/Output Intake/Output: Intake & Output 01/07/25 01/08/25 01/09/25 01/10/25 23:59 23:59 23:59 23:59 Intake Total 720 480 440 Output Total 0 Balance 720 480 440 Meds/Results Medications: Active Medications Generic Name Dose Route Start Last Admin Trade Name Freq PRN Reason Stop Dose Admin Acetaminophen 650 mg 01/08/25 14:06 01/10/25 04:44 Acetaminophen 325 Mg Tablet PO 650 mg Q4H PRN Administration Mild Pain (1-3) or Fever Albuterol/Ipratropium 3 ml 01/09/25 01:00 01/10/25 13:42 Ipratropium 0.5 Mg/Albuterol Sulfate 2.5 Mg Ampul.Neb 3 Ml INHALATION 3 ml Q4HR MORIS Administration Albuterol/Ipratropium 3 ml 01/08/25 23:15 Ipratropium 0.5 Mg/Albuterol Sulfate 2.5 Mg Ampul.Neb 3 Ml INHALATION Q6HRT PRN Bronchospasm Atorvastatin Calcium 40 mg 01/09/25 09:00 01/10/25 10:42 Atorvastatin 40 Mg Tablet PO 40 mg QAM MORIS Administration Dextrose 12.5 gm 01/08/25 14:06 Dextrose 50% 25 Gm/50 Ml Syringe IV PUSH PRN PRN Hypoglycemia Protocol Glucagon 1 mg 01/08/25 14:06 Glucagon For Inj 1 Mg Vial IM PRN PRN Hypoglycemia Protocol Glucose 15 gm 01/08/25 14:06 Glucose Oral Gel 15 Gm Of Glucse In 37.5 Gm Tube PO PRN PRN Hypoglycemia Protocol Guaifenesin 1,200 mg 01/09/25 21:00 01/10/25 10:42 Guaifenesin 12 Hr 600 Mg Tabcr PO 1,200 mg Q12HR MORIS Administration Hydroxyzine HCl 10 mg 01/09/25 14:36 Hydroxyzine Hcl 10 Mg Tablet PO Q6H PRN Anxiety Dextrose 1,000 mls @ 100 mls/hr 01/08/25 14:06 Dextrose 5% 1,000 Ml IVPB PRN PRN Hypoglycemia Protocol Oseltamivir Phosphate 75 mg 01/08/25 23:20 01/10/25 10:42 Oseltamivir Phosphate 75 Mg Capsule PO 01/13/25 23:19 75 mg Q12HR MORIS Administration Radiology Results: ITS Impressions Chest X-Ray 01/08/25 09:46 IMPRESSION: 1. No acute cardiopulmonary disease. Quality VTE Prophylaxis VTE prophylaxis: mechanical ordered Hospitalist [facility] Advance Care Plan I have confirmed that the patient's Advanced Care Plan is present, code status is documented, or surrogate decision maker is listed in patient medical record.: Yes Medication Reconciliation I have utilized all available resources to obtain, update and review the patients current medications (includes all prescriptions, OTC, herbals, cannabis, and nutritional supplements).: Yes
[2025-01-11] VITALS (12 sets, daily range): BP systolic 111–118; BP diastolic 61–70; PULSE 75–98; RESP 16–20; TEMP 36.1–36.6; O2SAT 93–95
[2025-01-11] MEDS: IPRATROPIUM 0.5 MG/ALBUTEROL SULFATE 2.5 MG AMPUL.NEB 3 ML INHALATION ×4 (04:18→21:12)
[2025-01-11] MEDS: guaiFENesin 12 HR 600 MG TABCR 1200 MG PO ×2 (08:28→20:44)
[2025-01-11] MEDS: ATORVASTATIN 40 MG TABLET PO (08:28)
[2025-01-11] MEDS: OSELTAMIVIR PHOSPHATE 75 MG CAPSULE PO ×2 (08:28→20:44)
[2025-01-11 09:05] LABS: Basophils Percent Auto 0.4 % (0.2-1.2); Eosinophils Percent Auto 0.2 % (0-4.4); Hematocrit 46.1 % (37.0-47.0); Hemoglobin 14.9 g/dL (12.0-15.0); Immature Granulocyte Absolute 0.02 K/mm3 (0.00-0.031); Immature Granulocyte Percent A 0.4 % (0-0.5); Lymphocytes Absolute Auto 1.27 K/mm3 (0.9-3.2); Lymphocytes Percent Auto 22.4 % (18.3-44.2); Mean Corpuscular HGB Conc 32.3 g/dl (32-36); Mean Corpuscular Hemoglobin 30.5 pg (26-34); Mean Corpuscular Volume 94.5 fl (80-100); Monocytes Absolute Auto 0.6 K/mm3 (0.1-0.6); Monocytes Percent Auto 10.9 % (2.6-8.5); Neutrophils Absolute Auto 3.7 K/mm3 (1.3-6.7); Neutrophils Percent Auto 65.7 % (45.5-73.1); Platelet Count Result 174 k/mm3 (150-375); Red Blood Count 4.88 M/mm3 (4.2-5.4); Red Cell Distribution Width 12.5 % (11.5-14.5); White Blood Count 5.7 K/mm3 (4.5-10.0)
[2025-01-11 09:41] LABS: Alanine Aminotransferase 37 U/L (6-35); Albumin Level 3.8 g/dL (3.5-5.1); Alkaline Phosphatase 97 U/L (38-126); Anion Gap 8 mmol/L (4-12); Aspartate Amino Transferase 40 U/L (14-36); Bilirubin,Total 0.6 mg/dL (0.2-1.3); Blood Urea Nitrogen 17 mg/dL (7-17); Calcium 8.6 mg/dL (8.4-10.2); Carbon Dioxide 26 mmol/L (22-30); Chloride 103 mmol/L (98-107); Estimated CRCL calculation 86 ml/min; Estimated Glomerular Filt Rate > 60; Glucose 93 mg/dL (65-110); Potassium 3.9 mmol/L (3.4-5.0); Sodium 137 mmol/L (137-145)
--- NOTE | 2025-01-11 10:18 | PCRCNOTE ---
Window of time for administration has passed. See next scheduled administration.
--- NOTE | 2025-01-11 10:57 | P.PNIM_ITS ---
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 - Eosinophilic asthma Status: Acute Assessment and Plan: Chronic - Breztri on hold for influenza A, per discussion with pulmonary * Albuterol inhaler on hold, but continuing duonebs (2) Influenza A: Code(s): J10.1 - Influenza due to other identified influenza virus with other respiratory manifestations Status: Acute Assessment and Plan: Respiratory panel positive for influenza A * Discontinued prednisone as it has in increased mortality risk in patients with influenza A * Continue to wean O2 for sat greater than 92%, currently on 4 L nasal cannula * Continue DuoNebs * Continue Tamiflu x5 days(3) Eosinophilic asthma: (3) Acute hypoxic respiratory failure: Code(s): J96.01 - Acute respiratory failure with hypoxia Status: Acute Assessment and Plan: Chest x-ray was negative for any acute cardiopulmonary disease * Respiratory panel positive for influenza A * Continue DuoNebs * Continue to wean O2 for sat greater than 92%, weaned from 4 L>2L nasal cannula * Mucinex ordered * Incentive spirometer ordered for use while awake * Pep therapy with cornet flutter valve * Hydroxyzine ordered for anxiety * Discussed with pulmonary and avoiding steroids with flu A d/t increased mortality rates. (4) Hyperlipidemia: Code(s): E78.5 - Hyperlipidemia, unspecified Status: Acute Assessment and Plan: Continue statin. Plan DVT - mechanical PPI - omeprazole Code status - Full Code - Continue to wean off O2. Once on room air, will D/c home with outpatient f/u. Time Spent With Patient Time with patient: Greater than 35 minutes (50 minutes) Subjective Date/time seen: 01/11/25 10:57 Interval history: This is a 64-year-old female with history of eosinophilic asthma, hyperlipidemia who presented to the hospital with acute respiratory failure with hypoxia requiring 4 L nasal cannula. Workup in the hospital included a chest x-ray which was negative for any acute cardiopulmonary disease. Initial labs showed a normal white blood cell count of 7.8, otherwise unremarkable. Respiratory panel was positive for influenza A. EKG showed sinus rhythm with a rate of 95, QTC 447. Patient was given DuoNeb and started on Tamiflu. Patient required oxygen so was admitted for management. Patient today notes mild dyspnea with walking to bathroom and talking/eating. she however reports feeling improvement. Patient states that she has no chest pain, nausea, vomiting, diarrhea. She dizziness. She continues to have cough. Review of Systems Review of Systems: All systems reviewed & are unremarkable except as noted in HPI and below Constitutional: Constitutional: Reports as per HPI Eyes: Eyes: Reports as per HPI ENT: Reports system reviewed and no additional complaints, except as documente d Cardiovascular: Cardiovascular: Reports no additional cardiovascular complaints Respiratory: Respiratory: Reports no additional respiratory complaints Gastrointestinal: Gastrointestinal: Reports no additional gastrointestinal complaints Genitourinary: Genitourinary: Reports no additional female genitourinary complaints Musculoskeletal: Musculoskeletal: Reports no additional musculoskeletal complaints Integumentary/Breasts: Skin/Breast: Reports system reviewed and no additional complaints, except as docu Neurologic: Reports system reviewed and no additional complaints, except as documented Psychiatric: Psychiatric: Reports no additional psychiatric complaints Exam Const: General: cooperative, comfortable, no acute distress, alert and awake HENMT: Head: normal to inspection Eyes: General: appearance normal, both eyes and all related structures Neck: Neck: normal visual inspection Chest: Chest palpation & inspection: normal inspection of the chest Resp: Effort & Inspection: able to speak in complete sentences and Actively coughing Auscultation: diminished lung sounds bilateral Cardio: Jugular venous distension: no JVD GI: Inspection: normal to inspection Skin: General skin exam: normal color and no rashes or lesions noted Neuro: General: oriented to person, oriented to place, oriented to time, gait normal, tone normal and moves all extremities Extrem: General: normal to inspection Psych: Appearance: grossly normal Objective Data Vital Signs Vital Signs: Vital Signs - 24 hr 01/10/25 12:48 01/10/25 13:43 01/10/25 14:04 Temperature 97.3 F L Pulse Rate 85 85 85 Respiratory Rate 18 18 24 H Blood Pressure 114/78 Pulse Oximetry 96 95 Oxygen Delivery Nasal Cannula Oxygen Flow Rate 3 Fraction of Inspired Oxygen 01/10/25 16:30 01/10/25 16:36 01/10/25 18:25 Temperature 97.0 F L Pulse Rate 78 75 84 Respiratory Rate 20 20 18 Blood Pressure 123/61 Pulse Oximetry 95 Oxygen Delivery Oxygen Flow Rate Fraction of Inspired Oxygen 01/10/25 19:44 01/10/25 19:44 01/10/25 20:00 Temperature Pulse Rate 87 87 85 Respiratory Rate 20 20 20 Blood Pressure Pulse Oximetry 93 Oxygen Delivery Nasal Cannula Oxygen Flow Rate 2 Fraction of Inspired Oxygen 28 01/10/25 21:00 01/10/25 21:00 01/10/25 23:13 Temperature 97.5 F L Pulse Rate 81 78 Respiratory Rate 20 16 Blood Pressure 108/67 Pulse Oximetry 95 95 Oxygen Delivery Nasal Cannula Oxygen Flow Rate 2 Fraction of Inspired Oxygen 01/10/25 23:24 01/11/25 04:20 01/11/25 04:29 Temperature Pulse Rate 78 88 88 Respiratory Rate 16 16 16 Blood Pressure Pulse Oximetry Oxygen Delivery Oxygen Flow Rate Fraction of Inspired Oxygen 01/11/25 06:38 Temperature 97.8 F Pulse Rate 78 Respiratory Rate 20 Blood Pressure 117/69 Pulse Oximetry 95 Oxygen Delivery Oxygen Flow Rate Fraction of Inspired Oxygen Intake/Output Intake/Output: Intake & Output 01/08/25 01/09/25 01/10/25 01/11/25 23:59 23:59 23:59 23:59 Intake Total 107 799 5083 600 Output Total 0 Balance 906 035 3660 600 Meds/Results Medications: Active Medications Generic Name Dose Route Start Last Admin Trade Name Freq PRN Reason Stop Dose Admin Acetaminophen 650 mg 01/08/25 14:06 01/10/25 21:00 Acetaminophen 325 Mg Tablet PO 650 mg Q4H PRN Administration Mild Pain (1-3) or Fever Albuterol/Ipratropium 3 ml 01/08/25 23:15 Ipratropium 0.5 Mg/Albuterol Sulfate 2.5 Mg Ampul.Neb 3 Ml INHALATION Q6HRT PRN Bronchospasm Albuterol/Ipratropium 3 ml 01/10/25 20:00 01/11/25 10:17 Ipratropium 0.5 Mg/Albuterol Sulfate 2.5 Mg Ampul.Neb 3 Ml INHALATION Not Given Q4HRT MORIS Atorvastatin Calcium 40 mg 01/09/25 09:00 01/11/25 08:28 Atorvastatin 40 Mg Tablet PO 40 mg QAM MORIS Administration Dextrose 12.5 gm 01/08/25 14:06 Dextrose 50% 25 Gm/50 Ml Syringe IV PUSH PRN PRN Hypoglycemia Protocol Glucagon 1 mg 01/08/25 14:06 Glucagon For Inj 1 Mg Vial IM PRN PRN Hypoglycemia Protocol Glucose 15 gm 01/08/25 14:06 Glucose Oral Gel 15 Gm Of Glucse In 37.5 Gm Tube PO PRN PRN Hypoglycemia Protocol Guaifenesin 1,200 mg 01/09/25 21:00 01/11/25 08:28 Guaifenesin 12 Hr 600 Mg Tabcr PO 1,200 mg Q12HR MORIS Administration Hydroxyzine HCl 10 mg 01/09/25 14:36 Hydroxyzine Hcl 10 Mg Tablet PO Q6H PRN Anxiety Dextrose 1,000 mls @ 100 mls/hr 01/08/25 14:06 Dextrose 5% 1,000 Ml IVPB PRN PRN Hypoglycemia Protocol Oseltamivir Phosphate 75 mg 01/08/25 23:20 01/11/25 08:28 Oseltamivir Phosphate 75 Mg Capsule PO 01/13/25 23:19 75 mg Q12HR MORIS Administration Radiology Results: ITS Impressions Chest X-Ray 01/08/25 09:46 IMPRESSION: 1. No acute cardiopulmonary disease. Labs Labs: Laboratory Results - last 24 hr 01/11/25 09:00 WBC 5.7 RBC 4.88 Hgb 14.9 Hct 46.1 MCV 94.5 MCH 30.5 MCHC 32.3 RDW 12.5 Plt Count 174 MPV 9.0 Immature Gran % (Auto) 0.4 Neut % (Auto) 65.7 Lymph % (Auto) 22.4 [place] % (Auto) 10.9 H Eos % (Auto) 0.2 Baso % (Auto) 0.4 Lymph # (Auto) 1.27 [place] # (Auto) 0.6 Eos # (Auto) 0.0 Baso # (Auto) 0.0 Abs Immat Gran (auto) 0.02 Absolute Neuts (auto) 3.7 Absolute Nucleated RBC 0.000 Nucleated RBC % 0.0 Sodium 137 Potassium 3.9 Chloride 103 Carbon Dioxide 26 Anion Gap 8 BUN 17 Creatinine 0.59 L Estim Creat Clear Calc 86 Estimated GFR > 60 Glucose 93 Calcium 8.6 Magnesium 2.0 Total Bilirubin 0.6 AST 40 H ALT 37 H Alkaline Phosphatase 97 Total Protein 7.0 Albumin 3.8 Hospitalist MIPS Advance Care Plan I have confirmed that the patient's Advanced Care Plan is present, code status is documented, or surrogate decision maker is listed in patient medical record.: Yes Medication Reconciliation I have utilized all available resources to obtain, update and review the patients current medications (includes all prescriptions, OTC, herbals, cannabis, and nutritional supplements).: Yes
[2025-01-12] VITALS (15 sets, daily range): BP systolic 105–132; BP diastolic 66–77; PULSE 75–87; RESP 16–20; TEMP 36.1–36.9; O2SAT 93–98
[2025-01-12] MEDS: IPRATROPIUM 0.5 MG/ALBUTEROL SULFATE 2.5 MG AMPUL.NEB 3 ML INHALATION ×5 (01:31→23:56)
[2025-01-12 06:00] LABS: Basophils Percent Auto 0.2 % (0.2-1.2); Eosinophils Percent Auto 0.8 % (0-4.4); Hematocrit 46.6 % (37.0-47.0); Hemoglobin 14.8 g/dL (12.0-15.0); Immature Granulocyte Absolute 0.02 K/mm3 (0.00-0.031); Immature Granulocyte Percent A 0.4 % (0-0.5); Lymphocytes Absolute Auto 1.63 K/mm3 (0.9-3.2); Lymphocytes Percent Auto 32.1 % (18.3-44.2); Mean Corpuscular HGB Conc 31.8 g/dl (32-36); Mean Corpuscular Hemoglobin 30.1 pg (26-34); Mean Corpuscular Volume 94.7 fl (80-100); Mean Platelet Volume 9.3 fl (7.4-10.4); Monocytes Absolute Auto 0.5 K/mm3 (0.1-0.6); Neutrophils Absolute Auto 2.9 K/mm3 (1.3-6.7); Neutrophils Percent Auto 56.5 % (45.5-73.1); Platelet Count Result 171 k/mm3 (150-375); Red Blood Count 4.92 M/mm3 (4.2-5.4); Red Cell Distribution Width 12.5 % (11.5-14.5); White Blood Count 5.1 K/mm3 (4.5-10.0)
[2025-01-12 06:12] LABS: Alanine Aminotransferase 35 U/L (6-35); Albumin Level 3.5 g/dL (3.5-5.1); Alkaline Phosphatase 94 U/L (38-126); Anion Gap 9 mmol/L (4-12); Aspartate Amino Transferase 31 U/L (14-36); Bilirubin,Total 0.6 mg/dL (0.2-1.3); Blood Urea Nitrogen 16 mg/dL (7-17); Calcium 8.6 mg/dL (8.4-10.2); Carbon Dioxide 27 mmol/L (22-30); Chloride 103 mmol/L (98-107); Estimated CRCL calculation 86 ml/min; Estimated Glomerular Filt Rate > 60; Glucose 94 mg/dL (65-110); Potassium 3.5 mmol/L (3.4-5.0); Sodium 139 mmol/L (137-145)
[2025-01-12] MEDS: guaiFENesin 12 HR 600 MG TABCR 1200 MG PO ×2 (08:45→20:50)
[2025-01-12] MEDS: ATORVASTATIN 40 MG TABLET PO (08:45)
[2025-01-12] MEDS: OSELTAMIVIR PHOSPHATE 75 MG CAPSULE PO ×2 (08:45→20:50)
--- NOTE | 2025-01-12 13:19 | P.PNIM_ITS ---
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 - Eosinophilic asthma Status: Acute Assessment and Plan: Chronic - Breztri on hold for influenza A, per discussion with pulmonary * Albuterol inhaler on hold, but continuing duonebs (2) Acute hypoxic respiratory failure: Code(s): J96.01 - Acute respiratory failure with hypoxia Status: Acute Assessment and Plan: Chest x-ray was negative for any acute cardiopulmonary disease * Respiratory panel positive for influenza A * Continue DuoNebs * Continue to wean O2 for sat greater than 92%, weaned from 4 L>2L nasal cannula * Mucinex ordered * Incentive spirometer ordered for use while awake * Pep therapy with cornet flutter valve * Hydroxyzine ordered for anxiety * Discussed with pulmonary and avoiding steroids with flu A d/t increased mortality rates. (3) Influenza A: Code(s): J10.1 - Influenza due to other identified influenza virus with other respiratory manifestations Status: Acute Assessment and Plan: Respiratory panel positive for influenza A * Discontinued prednisone as it has in increased mortality risk in patients with influenza A * Continue to wean O2 for sat greater than 92%, currently on 4 L nasal cannula * Continue DuoNebs * Continue Tamiflu x5 days (4) Hyperlipidemia: Code(s): E78.5 - Hyperlipidemia, unspecified Status: Acute Assessment and Plan: continue statin Plan Plan DVT - mechanical PPI - omeprazole Code status - Full Code - Continue to wean off O2. Once on room air, will D/c home with outpatient f/u. Time Spent With Patient Time with patient: Greater than 35 minutes Subjective Date/time seen: 01/12/25 13:19 Interval history: This is a 64-year-old female with history of eosinophilic asthma, hyperlipidemia who presented to the hospital with acute respiratory failure with hypoxia requiring 4 L nasal cannula. Workup in the hospital included a chest x-ray which was negative for any acute cardiopulmonary disease. Initial labs showed a normal white blood cell count of 7.8, otherwise unremarkable. Respiratory panel was positive for influenza A. EKG showed sinus rhythm with a rate of 95, QTC 447. Patient was given DuoNeb and started on Tamiflu. Patient required oxygen so was admitted for management. Patient today notes mild dyspnea with walking to bathroom and talking/eating. she however reports feeling improvement today, feels as if she is able to get a full breath. Patient states that she has no chest pain, nausea, vomiting, diarrhea. She dizziness. She continues to have cough, has been more productive today. Review of Systems Review of Systems: All systems reviewed & are unremarkable except as noted in HPI and below Exam Const: General: cooperative, no acute distress, alert and awake HENMT: Head: normal to inspection and normocephalic Eyes: General: appearance normal, both eyes and all related structures Neck: Neck: normal visual inspection, full ROM and no lymphadenopathy Chest: Chest palpation & inspection: normal inspection of the chest Resp: Effort & Inspection: normal respiratory effort Auscultation: clear to auscultation bilaterally and diminished lung sounds bilateral in the lower lung ramos Cardio: Jugular venous distension: no JVD Palpation: normal PMI Rate: regular rate Rhythm: regular rhythm Heart sounds: S1 normal heart sound present and S2 normal heart sound present GI: Inspection: normal to inspection Auscultation: normal bowel sounds Skin: General skin exam: normal color and no rashes or lesions noted Neuro: General: oriented to person, oriented to place, oriented to time, patient oriented x3, gait normal and tone normal Extrem: General: normal to inspection Psych: Appearance: grossly normal Mental Status: mental status grossly normal Speech and movement: Normal speech and movement present Objective Data Vital Signs Vital Signs: Vital Signs - 24 hr 01/11/25 14:18 01/11/25 15:31 01/11/25 20:34 Temperature 97.8 F 97 F L Pulse Rate 98 80 79 Respiratory Rate 18 16 20 Blood Pressure 111/61 118/70 Pulse Oximetry 93 94 Oxygen Delivery Oxygen Flow Rate 01/11/25 21:13 01/11/25 21:13 01/11/25 21:22 Temperature Pulse Rate 75 77 Respiratory Rate 20 20 Blood Pressure Pulse Oximetry 93 Oxygen Delivery Nasal Cannula Oxygen Flow Rate 2 01/12/25 01:32 01/12/25 01:44 01/12/25 06:00 Temperature 97.1 F L Pulse Rate 83 87 79 Respiratory Rate 20 20 16 Blood Pressure 132/77 Pulse Oximetry 98 Oxygen Delivery Oxygen Flow Rate 01/12/25 07:46 01/12/25 07:46 01/12/25 07:56 Temperature Pulse Rate 85 84 Respiratory Rate 20 20 Blood Pressure Pulse Oximetry 96 Oxygen Delivery Nasal Cannula Oxygen Flow Rate 2 Intake/Output Intake/Output: Intake & Output 01/09/25 01/10/25 01/11/25 01/12/25 23:59 23:59 23:59 23:59 Intake Total 480 1400 1550 540 Output Total 0 Balance 480 1400 1550 540 Meds/Results Medications: Active Medications Generic Name Dose Route Start Last Admin Trade Name Freq PRN Reason Stop Dose Admin Acetaminophen 650 mg 01/08/25 14:06 01/10/25 21:00 Acetaminophen 325 Mg Tablet PO 650 mg Q4H PRN Administration Mild Pain (1-3) or Fever Albuterol/Ipratropium 3 ml 01/08/25 23:15 Ipratropium 0.5 Mg/Albuterol Sulfate 2.5 Mg Ampul.Neb 3 Ml INHALATION Q6HRT PRN Bronchospasm Albuterol/Ipratropium 3 ml 01/10/25 20:00 01/12/25 07:46 Ipratropium 0.5 Mg/Albuterol Sulfate 2.5 Mg Ampul.Neb 3 Ml INHALATION 3 ml Q4HRT MORIS Administration Atorvastatin Calcium 40 mg 01/09/25 09:00 01/12/25 08:45 Atorvastatin 40 Mg Tablet PO 40 mg QAM MORIS Administration Dextrose 12.5 gm 01/08/25 14:06 Dextrose 50% 25 Gm/50 Ml Syringe IV PUSH PRN PRN Hypoglycemia Protocol Glucagon 1 mg 01/08/25 14:06 Glucagon For Inj 1 Mg Vial IM PRN PRN Hypoglycemia Protocol Glucose 15 gm 01/08/25 14:06 Glucose Oral Gel 15 Gm Of Glucse In 37.5 Gm Tube PO PRN PRN Hypoglycemia Protocol Guaifenesin 1,200 mg 01/09/25 21:00 01/12/25 08:45 Guaifenesin 12 Hr 600 Mg Tabcr PO 1,200 mg Q12HR MORIS Administration Hydroxyzine HCl 10 mg 01/09/25 14:36 Hydroxyzine Hcl 10 Mg Tablet PO Q6H PRN Anxiety Dextrose 1,000 mls @ 100 mls/hr 01/08/25 14:06 Dextrose 5% 1,000 Ml IVPB PRN PRN Hypoglycemia Protocol Oseltamivir Phosphate 75 mg 01/08/25 23:20 01/12/25 08:45 Oseltamivir Phosphate 75 Mg Capsule PO 01/13/25 23:19 75 mg Q12HR MORIS Administration Radiology Results: ITS Impressions Chest X-Ray 01/08/25 09:46 IMPRESSION: 1. No acute cardiopulmonary disease. Labs Labs: Laboratory Results - last 24 hr 01/12/25 05:39 WBC 5.1 RBC 4.92 Hgb 14.8 Hct 46.6 MCV 94.7 MCH 30.1 MCHC 31.8 L RDW 12.5 Plt Count 171 MPV 9.3 Immature Gran % (Auto) 0.4 Neut % (Auto) 56.5 Lymph % (Auto) 32.1 [place] % (Auto) 10.0 H Eos % (Auto) 0.8 Baso % (Auto) 0.2 Lymph # (Auto) 1.63 [place] # (Auto) 0.5 Eos # (Auto) 0.0 Baso # (Auto) 0.0 Abs Immat Gran (auto) 0.02 Absolute Neuts (auto) 2.9 Absolute Nucleated RBC 0.000 Nucleated RBC % 0.0 Sodium 139 Potassium 3.5 Chloride 103 Carbon Dioxide 27 Anion Gap 9 BUN 16 Creatinine 0.59 L Estim Creat Clear Calc 86 Estimated GFR > 60 Glucose 94 Calcium 8.6 Magnesium 2.0 Total Bilirubin 0.6 AST 31 ALT 35 Alkaline Phosphatase 94 Total Protein 6.0 L Albumin 3.5 Hospitalist MIPS Advance Care Plan I have confirmed that the patient's Advanced Care Plan is present, code status is documented, or surrogate decision maker is listed in patient medical record.: Yes Medication Reconciliation I have utilized all available resources to obtain, update and review the patients current medications (includes all prescriptions, OTC, herbals, cannabis, and nutritional supplements).: Yes
--- NOTE | 2025-01-12 16:24 | PCRCNOTE ---
Window of time for administration has passed. See next scheduled administration.
[2025-01-12] MEDS: ACETAMINOPHEN 325 MG TABLET 650 MG PO (16:33)
[2025-01-12] MEDS: hydrOXYzine HCL 10 MG TABLET PO (20:50)
[2025-01-13] VITALS (9 sets, daily range): BP systolic 115; BP diastolic 65; PULSE 80–128; RESP 18–20; TEMP 36.4; O2SAT 90–97
[2025-01-13 06:15] LABS: Basophils Percent Auto 0.2 % (0.2-1.2); Eosinophils Percent Auto 0.8 % (0-4.4); Hematocrit 45.6 % (37.0-47.0); Hemoglobin 14.8 g/dL (12.0-15.0); Immature Granulocyte Absolute 0.01 K/mm3 (0.00-0.031); Immature Granulocyte Percent A 0.2 % (0-0.5); Lymphocytes Absolute Auto 1.51 K/mm3 (0.9-3.2); Lymphocytes Percent Auto 31.2 % (18.3-44.2); Mean Corpuscular HGB Conc 32.5 g/dl (32-36); Mean Corpuscular Hemoglobin 30.7 pg (26-34); Mean Corpuscular Volume 94.6 fl (80-100); Mean Platelet Volume 9.5 fl (7.4-10.4); Monocytes Absolute Auto 0.4 K/mm3 (0.1-0.6); Monocytes Percent Auto 9.1 % (2.6-8.5); Neutrophils Absolute Auto 2.8 K/mm3 (1.3-6.7); Neutrophils Percent Auto 58.5 % (45.5-73.1); Platelet Count Result 180 k/mm3 (150-375); Red Blood Count 4.82 M/mm3 (4.2-5.4); Red Cell Distribution Width 12.4 % (11.5-14.5); White Blood Count 4.8 K/mm3 (4.5-10.0)
[2025-01-13 06:28] LABS: Alanine Aminotransferase 31 U/L (6-35); Albumin Level 3.6 g/dL (3.5-5.1); Alkaline Phosphatase 88 U/L (38-126); Anion Gap 6 mmol/L (4-12); Aspartate Amino Transferase 24 U/L (14-36); Bilirubin,Total 0.6 mg/dL (0.2-1.3); Blood Urea Nitrogen 17 mg/dL (7-17); Calcium 8.8 mg/dL (8.4-10.2); Carbon Dioxide 30 mmol/L (22-30); Chloride 103 mmol/L (98-107); Estimated CRCL calculation 84 ml/min; Estimated Glomerular Filt Rate > 60; Glucose 106 mg/dL (65-110); Magnesium 2.1 mg/dL (1.6-2.3); Potassium 3.4 mmol/L (3.4-5.0); Sodium 139 mmol/L (137-145)
--- NOTE | 2025-01-13 06:40 | PCRCNOTE ---
Window of time for administration has passed. See next scheduled administration.
[2025-01-13 07:09] LABS: Platelet Estimate Adequate (Adequate)
[2025-01-13 07:10] LABS: Schistocytes None Seen
[2025-01-13] MEDS: IPRATROPIUM 0.5 MG/ALBUTEROL SULFATE 2.5 MG AMPUL.NEB 3 ML INHALATION ×2 (07:37→11:12)
[2025-01-13] MEDS: OSELTAMIVIR PHOSPHATE 75 MG CAPSULE PO (09:05)
[2025-01-13] MEDS: guaiFENesin 12 HR 600 MG TABCR 1200 MG PO (09:05)
[2025-01-13] MEDS: ATORVASTATIN 40 MG TABLET PO (09:05)
[2025-01-13] MEDS: ACETAMINOPHEN 325 MG TABLET 650 MG PO (09:07)
--- NOTE | 2025-01-13 10:20 | P.PNIM_ITS ---
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 - Eosinophilic asthma Status: Acute Assessment and Plan: Chronic - Breztri on hold for influenza A, per discussion with pulmonary * Albuterol inhaler on hold, but continuing duonebs (2) Acute hypoxic respiratory failure: Code(s): J96.01 - Acute respiratory failure with hypoxia Status: Acute Assessment and Plan: Chest x-ray was negative for any acute cardiopulmonary disease * Respiratory panel positive for influenza A * Continue DuoNebs * Continue to wean O2 for sat greater than 92%, weaned from 4 L>2L nasal cannula * Mucinex ordered * Incentive spirometer ordered for use while awake * Pep therapy with cornet flutter valve * Hydroxyzine ordered for anxiety * Discussed with pulmonary and avoiding steroids with flu A d/t increased mortality rates. (3) Influenza A: Code(s): J10.1 - Influenza due to other identified influenza virus with other respiratory manifestations Status: Acute Assessment and Plan: Respiratory panel positive for influenza A * Discontinued prednisone as it has in increased mortality risk in patients with influenza A * Continue to wean O2 for sat greater than 92%, currently on 4 L nasal cannula * Continue DuoNebs * Continue Tamiflu x5 days (4) Hyperlipidemia: Code(s): E78.5 - Hyperlipidemia, unspecified Status: Acute Assessment and Plan: continue statin Plan Plan DVT - mechanical PPI - omeprazole Code status - Full Code - Continue to wean off O2. Once on room air, will D/c home with outpatient f/u. Subjective Date/time seen: 01/13/25 10:20 Interval history: Interval history: This is a 64-year-old female with history of eosinophilic asthma, hyperlipidemia who presented to the hospital with acute respiratory failure with hypoxia requiring 4 L nasal cannula. Workup in the hospital included a chest x- ray which was negative for any acute cardiopulmonary disease. Initial labs showed a normal white blood cell count of 7.8, otherwise unremarkable. Respiratory panel was positive for influenza A. EKG showed sinus rhythm with a rate of 95, QTC 447. Patient was given DuoNeb and started on Tamiflu. Subjective: Review of Systems Review of Systems: All systems reviewed & are unremarkable except as noted in HPI and below Exam Narrative: General: In no acute distress, well nourished Respiratory: Lungs mild expiratory wheezing noted bilaterally, no adventitious lung sounds, currently on 2 L nasal cannula Gastrointestinal: soft, non-distended, non-tender, normoactive bowel sounds. : voiding without difficulty. Neuro: Alert and oriented x4 Objective Data Vital Signs Vital Signs: Vital Signs - 24 hr 01/12/25 14:00 01/12/25 16:27 01/12/25 16:41 Temperature 98.4 F Pulse Rate 75 85 84 Respiratory Rate 18 20 20 Blood Pressure 105/66 Pulse Oximetry 96 Oxygen Delivery Oxygen Flow Rate Fraction of Inspired Oxygen 01/12/25 20:00 01/12/25 20:06 01/12/25 20:08 Temperature Pulse Rate 83 Respiratory Rate 20 Blood Pressure Pulse Oximetry 93 93 Oxygen Delivery Nasal Cannula Nasal Cannula Oxygen Flow Rate 2 2 Fraction of Inspired Oxygen 01/12/25 20:14 01/12/25 21:23 01/12/25 23:56 Temperature 97.0 F L Pulse Rate 83 83 77 Respiratory Rate 20 16 20 Blood Pressure 110/66 Pulse Oximetry 95 Oxygen Delivery Oxygen Flow Rate Fraction of Inspired Oxygen 01/13/25 00:04 01/13/25 06:00 01/13/25 07:37 Temperature 97.5 F L Pulse Rate 80 83 Respiratory Rate 20 18 Blood Pressure 115/65 Pulse Oximetry 97 94 Oxygen Delivery Nasal Cannula Oxygen Flow Rate 2 Fraction of Inspired Oxygen 28 01/13/25 07:37 01/13/25 07:48 Temperature Pulse Rate 81 80 Respiratory Rate 20 20 Blood Pressure Pulse Oximetry Oxygen Delivery Oxygen Flow Rate Fraction of Inspired Oxygen Intake/Output Intake/Output: Intake & Output 01/10/25 01/11/25 01/12/25 01/13/25 23:59 23:59 23:59 23:59 Intake Total 1400 1550 541 500 Output Total 0 Balance 1400 1550 541 500 Meds/Results Medications: Active Medications Generic Name Dose Route Start Last Admin Trade Name Freq PRN Reason Stop Dose Admin Acetaminophen 650 mg 01/08/25 14:06 01/13/25 09:07 Acetaminophen 325 Mg Tablet PO 650 mg Q4H PRN Administration Mild Pain (1-3) or Fever Albuterol/Ipratropium 3 ml 01/08/25 23:15 Ipratropium 0.5 Mg/Albuterol Sulfate 2.5 Mg Ampul.Neb 3 Ml INHALATION Q6HRT PRN Bronchospasm Albuterol/Ipratropium 3 ml 01/10/25 20:00 01/13/25 07:37 Ipratropium 0.5 Mg/Albuterol Sulfate 2.5 Mg Ampul.Neb 3 Ml INHALATION 3 ml Q4HRT MORIS Administration Atorvastatin Calcium 40 mg 01/09/25 09:00 01/13/25 09:05 Atorvastatin 40 Mg Tablet PO 40 mg QAM MORIS Administration Dextrose 12.5 gm 01/08/25 14:06 Dextrose 50% 25 Gm/50 Ml Syringe IV PUSH PRN PRN Hypoglycemia Protocol Glucagon 1 mg 01/08/25 14:06 Glucagon For Inj 1 Mg Vial IM PRN PRN Hypoglycemia Protocol Glucose 15 gm 01/08/25 14:06 Glucose Oral Gel 15 Gm Of Glucse In 37.5 Gm Tube PO PRN PRN Hypoglycemia Protocol Guaifenesin 1,200 mg 01/09/25 21:00 01/13/25 09:05 Guaifenesin 12 Hr 600 Mg Tabcr PO 1,200 mg Q12HR MORIS Administration Hydroxyzine HCl 10 mg 01/09/25 14:36 01/12/25 20:50 Hydroxyzine Hcl 10 Mg Tablet PO 10 mg Q6H PRN Administration Anxiety Dextrose 1,000 mls @ 100 mls/hr 01/08/25 14:06 Dextrose 5% 1,000 Ml IVPB PRN PRN Hypoglycemia Protocol Oseltamivir Phosphate 75 mg 01/08/25 23:20 01/13/25 09:05 Oseltamivir Phosphate 75 Mg Capsule PO 01/13/25 23:19 75 mg Q12HR MORIS Administration Radiology Results: ITS Impressions Chest X-Ray 01/08/25 09:46 IMPRESSION: 1. No acute cardiopulmonary disease. Labs Labs: Laboratory Results - last 24 hr 01/13/25 05:47 WBC 4.8 RBC 4.82 Hgb 14.8 Hct 45.6 MCV 94.6 MCH 30.7 MCHC 32.5 RDW 12.4 Plt Count 180 MPV 9.5 Immature Gran % (Auto) 0.2 Neut % (Auto) 58.5 Lymph % (Auto) 31.2 [place] % (Auto) 9.1 H Eos % (Auto) 0.8 Baso % (Auto) 0.2 Lymph # (Auto) 1.51 [place] # (Auto) 0.4 Eos # (Auto) 0.0 Baso # (Auto) 0.0 Abs Immat Gran (auto) 0.01 Absolute Neuts (auto) 2.8 Absolute Nucleated RBC 0.000 Nucleated RBC % 0.0 Platelet Estimate Adequate Schistocytes None seen Sodium 139 Potassium 3.4 Chloride 103 Carbon Dioxide 30 Anion Gap 6 BUN 17 Creatinine 0.60 L Estim Creat Clear Calc 84 Estimated GFR > 60 Glucose 106 Calcium 8.8 Magnesium 2.1 Total Bilirubin 0.6 AST 24 ALT 31 Alkaline Phosphatase 88 Total Protein 6.0 L Albumin 3.6 Quality VTE Prophylaxis VTE prophylaxis: mechanical ordered
--- NOTE | 2025-01-13 13:03 | P.DS_ITS ---
DS: Admitting Diagnosis Discharge Date 01/13/25 Admitting Diagnosis asthma attacks lasting more than 24 hour hyperglycemia hyperlipidemia DS: Discharge Diagnosis Discharge Diagnosis (1) Eosinophilic asthma: Code(s): J82.83 - Eosinophilic asthma Status: Acute (2) Acute hypoxic respiratory failure: Code(s): J96.01 - Acute respiratory failure with hypoxia Status: Acute (3) Influenza A: Code(s): J10.1 - Influenza due to other identified influenza virus with other respiratory manifestations Status: Acute (4) Hyperlipidemia: Code(s): E78.5 - Hyperlipidemia, unspecified Status: Acute DS: Summary Hospital Course Reason for hospitalization: asthma attacks lasting more than 24 hour hyperglycemia hyperlipidemia Hospital Course: This is a 64-year-old female with history of eosinophilic asthma, hyperlipidemia who presented to the hospital with acute respiratory failure with hypoxia requiring 4 L nasal cannula. Workup in the hospital included a chest x-ray which was negative for any acute cardiopulmonary disease. Initial labs showed a normal white blood cell count of 7.8, otherwise unremarkable. Respiratory panel was positive for influenza A. EKG showed sinus rhythm with a rate of 95, QTC 447. Patient was given DuoNeb and started on Tamiflu. Patient finished full course of Tamiflu while inpatient. She is still currently on 2 L nasal cannula. We will set up home O2 for her. She will need to follow up with her primary care doctor in 1 week. Her hemoglobin A1c was 5.7. She was not started on any glycemic medication while inpatient. she is stable for discharge at this time. final diagnosis: acute respiratory failure with hypoxia, asthma exacerbation, influenza A Status at Discharge Cognitive/behavioral status at discharge: alert oriented x4 Functional status at discharge: independent ambulation Overall status at discharge: patient is progressing back to baseline Time Spent with Patient Time attestation: Total time spent providing and/or coordinating discharge services: Time spent: Greater than 30 minutes Exam Narrative: General: In no acute distress, well nourished Respiratory: Lungs mild expiratory wheezing noted bilaterally, no adventitious lung sounds, currently on 2 L nasal cannula Gastrointestinal: soft, non-distended, non-tender, normoactive bowel sounds. : voiding without difficulty. Neuro: Alert and oriented x4 DS: Data Data Completed and Pending Completed studies during hospitalization: chest x-ray Pending studies at discharge: none Labs on day of discharge: Labs from last 24 hours 01/13/25 05:47 WBC 4.8 RBC 4.82 Hgb 14.8 Hct 45.6 MCV 94.6 MCH 30.7 MCHC 32.5 RDW 12.4 Plt Count 180 MPV 9.5 Immature Gran % (Auto) 0.2 Neut % (Auto) 58.5 Lymph % (Auto) 31.2 Cecil % (Auto) 9.1 H Eos % (Auto) 0.8 Baso % (Auto) 0.2 Lymph # (Auto) 1.51 Cecil # (Auto) 0.4 Eos # (Auto) 0.0 Baso # (Auto) 0.0 Abs Immat Gran (auto) 0.01 Absolute Neuts (auto) 2.8 Absolute Nucleated RBC 0.000 Nucleated RBC % 0.0 Platelet Estimate Adequate Schistocytes None seen Sodium 139 Potassium 3.4 Chloride 103 Carbon Dioxide 30 Anion Gap 6 BUN 17 Creatinine 0.60 L Estim Creat Clear Calc 84 Estimated GFR > 60 Glucose 106 Calcium 8.8 Magnesium 2.1 Total Bilirubin 0.6 AST 24 ALT 31 Alkaline Phosphatase 88 Total Protein 6.0 L Albumin 3.6 Procedures/Treatments: none Discharge Plan Discharge Attending physician on discharge: Ruslan Wong Discharging Clinician: Gayla Bryant Anticipated Discharge Date/Time: 01/13/25 12:47 Patient Disposition: Home, Self-Care Activity: as tolerated Diet: as tolerated and regular Discharge Instructions: * You finished a full course of Tamiflu while here. You are now off isolation precautions. * Continue inhalers as prescribed * If you start to become more short of breath or increased wheezing you can change Breztri to nebulized Duonebs instead. * Follow up with your primary care doctor in 1 week. * Continue home O2 as directed. Talk with your primary care doctor about weaning off oxygen at your next appointment. * Continue use of the incentive spirometry for deep breathing * Continue use of the Cornet flutter valve to help move secretions. Patient Instructions: Antibiotic Form Patient Language: Persian Stand Alone Forms: General Discharge Information Follow-up/Referrals: Zhen,MD Wayne [Primary Care Provider] - 1 Week Discharge Medications: New guaifenesin [Mucus Relief ER] 600 mg Tablet Extended Release 12hr 1,200 mg PO Q12HR Qty: 20 0RF ipratropium-albuterol 0.5 mg-3 mg(2.5 mg base)/3 mL Solution For Nebulization 3 ml inhalation Q6HRT PRN (Reason: Bronchospasm) Qty: 30 0RF (DME) nebulizer and compressor Device See Rx Instructions .Route Qty: 1 0RF Rx Instructions: As directed (DME) nebulizer accessories Kit See Rx Instructions .Route Qty: 1 0RF Rx Instructions: As directed Continued atorvastatin 40 mg tablet 40 mg PO QAM albuterol sulfate 2.5 mg /3 mL (0.083 %) solution for nebulization 2.5 mg inhalation Q6-8H PRN (Reason: shortness of breath or wheezing) albuterol sulfate 90 mcg/actuation HFA aerosol inhaler 2 inh INHALATION Q6-8H PRN (Reason: shortness of breath or wheezing) Breztri Aerosphere 160-9-4.8 mcg/actuation HFA aerosol inhaler 2 inh INHALATION QAM AND QPM omeprazole 20 mg capsule,delayed release(DR/EC) 20 mg PO QAM Nucala 100 mg/mL auto-injector 300 mg SUBCUT MONTHLY Date of admission: 01/09/25 10:25 Primary Care Provider: Zhen,Wayne Admitting Provider: Ruslan Wong Attending physician on admission: Gayla Bryant Condition: Improved Quality VTE Prophylaxis VTE prophylaxis: mechanical ordered Hospitalist MIPS Heart Failure (Exclusion) Patient has history of Heart Transplant or Left Ventricular Assistive Device?: No IF YES, STOP HERE Heart Failure (Qualifier) Patient has current or prior documentation of LVEF less than or equal to 40%, or mod/servere depressed LVSF?: No IF NO, STOP HERE
--- NOTE | 2025-01-13 14:52 | PCRCNOTE ---
Home O2 eval done, no home O2 needed. RN notified
== END 2025-01-13 14:45 | disposition home or self-care (01) | DRG 189 ==
LOC: ANHED 09:59 → ANH3MEDSUR 10:32 → ANH3MED 12:44
PROVIDERS: Nurse Practitioner Family; Nurse Practitioner Gerontology; Admitting Provider General Practice; Emergency Provider Emergency Medicine; PCP Internal Medicine; Visit Provider Nurse Practitioner Acute Care
DX: J96.01 Acute respiratory failure with hypoxia (principal); J82.83 Eosinophilic asthma; J45.901 Unspecified asthma with (acute) exacerbation; J10.1 Influenza due to other identified influenza virus with other respiratory manifestations; E78.5 Hyperlipidemia, unspecified; F17.210 Nicotine dependence, cigarettes, uncomplicated; R73.9 Hyperglycemia, unspecified; Z20.822 Contact with and (suspected) exposure to COVID-19
CPT/HCPCS: 36415; 71046; 80048; 80053; 82948; 83036; 83735; 85025; 87637; 93005; 94618; 94640; 94667; 99285; A9270; G0378

== ENCOUNTER 2025-02-26 13:32 | Outpatient (CLI) | payer BC, SELFPAY ==
--- NOTE | 2025-02-26 14:00 | NEURO_ITS ---
Impression: # Complains of numbness of hands. ? # Right ulnar neuropathy across the elbow. ? # No Carpal Tunnel Syndrome. ? Nerve Conduction Studies Anti Sensory Summary Table ?Stim Site NR Peak (ms) P-T Amp (?V) Site1 Site2 Delta-P (ms) Dist (cm) Isai (m/s) Left Median Anti Sensory (2-3nd Digit) Wrist ? 2.7 36.8 Wrist 2-3nd Digit 2.7 14.0 52 Wrist ? 2.7 33.8 Wrist 2-3nd Digit 2.7 14.0 52 Right Median Anti Sensory (2-3nd Digit) Wrist ? 2.9 33.6 Wrist 2-3nd Digit 2.9 14.0 48 Wrist ? 2.8 45.7 Wrist 2-3nd Digit 2.9 14.0 48 Left Radial Anti Sensory (Base 1st Digit) Wrist ? 2.5 19.6 Wrist Base 1st Digit 2.5 0.0 Right Radial Anti Sensory (Base 1st Digit) Wrist ? 2.4 14.1 Wrist Base 1st Digit 2.4 0.0 Left Ulnar Anti Sensory (5th Digit) Wrist ? 2.8 42.3 Wrist 5th Digit 2.8 14.0 50 Right Ulnar Anti Sensory (5th Digit) Wrist ? 2.4 59.4 Wrist 5th Digit 2.4 14.0 58 Motor Summary Table ?Stim Site NR Onset (ms) O-P Amp (mV) Site1 Site2 Delta-0 (ms) Dist (cm) Isai (m/s) Left Median Motor (Abd Poll Brev) Wrist ? 3.4 3.0 Elbow Wrist 5.0 31.0 62 Elbow ? 8.4 6.2 Right Median Motor (Abd Poll Brev) Wrist ? 3.5 3.4 Elbow Wrist 4.5 28.0 62 Elbow ? 8.0 6.3 Left Ulnar Motor (Abd Dig Minimi) Wrist ? 3.0 6.7 A Elbow Wrist 5.2 30.0 58 A Elbow ? 8.2 4.0 B Elbow Wrist 3.8 22.0 58 B Elbow ? 6.8 3.6 Right Ulnar Motor (Abd Dig Minimi) Wrist ? 2.7 7.0 A Elbow Wrist 6.6 30.0 45 A Elbow ? 9.3 5.3 B Elbow Wrist 4.3 23.0 53 B Elbow ? 7.0 6.0 F Wave Studies ?NR F-Lat (ms) L-R F-Lat (ms) Left Median (Mrkrs) (Abd Poll Brev) ? 25.20 2.00 Right Median (Mrkrs) (Abd Poll Brev) ? 27.19 2.00 Left Ulnar (Mrkrs) (Abd Dig Min) ? 27.95 0.06 Right Ulnar (Mrkrs) (Abd Dig Min) ? 27.90 0.06 EMG ?Side Muscle Nerve Root Ins Act Fibs Amp Dur Recrt Comment Right 1stDorInt Ulnar C8-T1 Nml Nml Nml Nml +1 Right Ext Indicis Radial (Post Int) C7-8 Nml Nml Nml Nml Nml Right Ext Digitorum Radial (Post Int) C7-8 Nml Nml Nml Nml Nml Right BrachioRad Radial C5-6 Nml Nml Nml Nml Nml Right PronatorTeres Median C6-7 Nml Nml Nml Nml Nml Right Abd Poll Brev Median C8-T1 Nml Nml Nml Nml Nml Right ABD Dig Min Ulnar C8-T1 Nml Nml Nml Nml +1 Right FlexPolLong Median (Ant Int) C7-8 Nml Nml Nml Nml Nml Right Abd Poll Long Radial (Post Int) C7-8 Nml Nml Nml Nml Nml Left 1stDorInt Ulnar C8-T1 Nml Nml Nml Nml Nml Left Ext Indicis Radial (Post Int) C7-8 Nml Nml Nml Nml Nml Left Ext Digitorum Radial (Post Int) C7-8 Nml Nml Nml Nml Nml Left BrachioRad Radial C5-6 Nml Nml Nml Nml Nml Left PronatorTeres Median C6-7 Nml Nml Nml Nml Nml Left Abd Poll Brev Median C8-T1 Nml Nml Nml Nml Nml Left ABD Dig Min Ulnar C8-T1 Nml Nml Nml Nml Nml MTDD
--- OUTSIDE RECORDS SUMMARY | 2025-02-26 14:51 | XMS_ITS | Referral Summary ---
Author Organization [facility] Address [address] [place] [id number] Care Team Providers Care Manager Trade Marketing Name Role Phone Prasad Fontaine MD Primary Care Provide r Encounters Date Type Department Care Team Description 12/04/2024 11:00 AM INTERN ARCHITECT Office Visit [facility] Pulmonary at [address] [place] [address] German Newsome DO Asthma-COPD overlap [...] on file Legal Sex Female 11:45 AM INTERN ARCHITECT Gender Identity Not on file Sexual Orientation Not on file Last Filed Vital Signs Vital Sign Reading Time Taken Comments Blood Pressure 132/82 12/04/2024 11:14 AM INTERN ARCHITECT Pulse 81 12/04/2024 11:14 AM INTERN ARCHITECT Temperature 36.5 C (97.7 F) 12/04/2024 11:14 AM INTERN ARCHITECT Respiratory Rate - - Oxygen Saturation 95% 12/04/2024 11:14 AM INTERN ARCHITECT Inhaled Oxygen Concentration - - Weight 79.9 kg (176 lb 3.2 oz) 12/04/2024 11:14 AM INTERN ARCHITECT Height 170.2 cm (5' 7 ) 12/04/2024 11:14 AM INTERN ARCHITECT Body Mass Index 27.6 12/04/2024 11:14 AM INTERN ARCHITECT Plan of Treatment Not on file Insurance [facility] Care Teams Manager Trade Marketing Relationship Specialty Start Date End Date Prasad Fontaine MD [address] [place] [address] PCP - General Internal Medicine 10/10/24
--- OUTSIDE RECORDS SUMMARY | 2025-02-26 14:51 | XMS_ITS | Clinical Summary ---
Author Organization [facility] Address [address] [place] [address] Care Team Providers Care Tool Profiling Machine Set Up Operator Name Role Phone Prasad Fontaine MD [...] Department Care Team Description 12/04/2024 11:00 AM WAREHOUSE ASSEMBLY WORKER Office Visit [facility] Pulmonary at [address] [place] [address] German Newsome DO Asthma-COPD overlap [...] on file Legal Sex Female 11:45 AM WAREHOUSE ASSEMBLY WORKER Gender Identity Not on file Sexual Orientation Not on file Obstetrics History Last Filed Vital Signs Vital Sign Reading Time Taken Comments Blood Pressure 132/82 12/04/2024 11:14 AM WAREHOUSE ASSEMBLY WORKER Pulse 81 12/04/2024 11:14 AM WAREHOUSE ASSEMBLY WORKER Temperature 36.5 C (97.7 F) 12/04/2024 11:14 AM WAREHOUSE ASSEMBLY WORKER Respiratory Rate - - Oxygen Saturation 95% 12/04/2024 11:14 AM WAREHOUSE ASSEMBLY WORKER Inhaled Oxygen Concentration - - Weight 79.9 kg (176 lb 3.2 oz) 12/04/2024 11:14 AM WAREHOUSE ASSEMBLY WORKER Height 170.2 cm (5' 7 ) 12/04/2024 11:14 AM WAREHOUSE ASSEMBLY WORKER Body Mass Index 27.6 12/04/2024 11:14 AM WAREHOUSE ASSEMBLY WORKER Plan of Treatment Health Maintenance Due Date [...] Influenza Vaccine Completed 09/26/2024, , 12/20/2021 Insurance [facility] Care Teams Tool Profiling Machine Set Up Operator Relationship Specialty Start Date End Date Prasad Fontaine MD [address] [facility] [address] [place], [place] [id number] PCP - General Internal Medicine 10/10/24
--- OUTSIDE RECORDS SUMMARY | 2025-02-26 14:51 | XMS_ITS | CONTINUITY OF CARE DOCUMENT ---
Author Name renato chenalia Address Unknown Organization [facility] Address [address] [place] [address] Phone [phone] Care Team Providers Care Academic Advisor Name Role Phone Lindsay Pires MD Unavailable [phone] FRANCOISE BAILEY, GEOVANY Unavailable FRANCOISE BAILEY, GEOVANY Unavailable PROBLEMS Condition Status Date Provider Notes Cardiology examination active Lindsay bailey MD C O P D active Lindsay Pires MD G E R D active Lindsay Pires MD Family history of premature CAD- sister had CABG in 50s active Lindsay Pires MD Hypercholesterolemia active Lindsay jackson MD Tobacco abuse active Lindsay Pires MD Exertional shortness of breath active Patricia Pires MD Cardiac murmur active Lindsay Pires MD ENCOUNTERS Date Type Provider Location Encounter Diag nosis - In-person encounter Office Visit Lindsay Pires MD [place] [facility] Cardiology examinationC O P DG E [...] ri Darrion oxygen saturation, oximetry 97 % Jnauary Darrion pulse rate 76 /min January Alexe [...] Payer name Policy type / Coverage type [place] red green party ID BLUE [facility] Blue [facility] [id number] ADVANCE DIRECTIVES Name Date DISCUSSED - NO [...] Tobacco user + tobac co cessation intervention Lindsay Pires MD [12/19/2024 - abigail] NPR completed EKG Lindsay Pires MD [12/19/2024 - abigail] NPR completed
--- OUTSIDE RECORDS SUMMARY | 2025-02-26 14:52 | XMS_ITS | Clinical Summary ---
Author Organization [facility] Address [address] [facility] [place] [address] Care Team Providers Care Operator Lights Name Role Phone Theo Argueta MD Primary Care Provider [phone] Theo Argueta MD Unavailable [phone] Source Comments [facility],non-owned Affiliates and Associated Physician Practices is amultiple site organization consisting of ambulatory clinics and hospital sitesin [place], [place], [place] and [place]. This disclosure is being madepursuant to the Care Everywhere program and may not contain all information available regarding this patient. Last updated 18.[facility] Allergies Active Allergy Reactions Criticality Noted Date [...] Tdap) 1978 PNEUMOCOCCAL VACCINE 50+ (1 of 1 - PCV) 2009 ZOSTER VACCINE (1 of 2) 2009 SCREENING [...] to complete this topic MENINGOCOCCAL (Group B) VACC INE SHARED DECISION-MAKING Aged Out No longer eligibl e based on patient's age to complete this topic MENINGOCOCCAL GROUPS A/C/Y/W VACCINE Aged Out No longer eligible b ased on patient's age to complete this topic Care Teams Operator Lights Relationship Specialty Start Date End Date Theo Argueta MD [address] [place] [id number] PCP - General Gastroenterology 03/06/17 Theo Argueta MD [address] [place] [id number] Gastroenterology 03/06/17
--- OUTSIDE RECORDS SUMMARY | 2025-02-26 14:52 | XMS_ITS | Clinical Summary ---
Author Organization [facility] Address [address] [place] [id number] Care Team Providers Care Junior Accounting Clerk Name Role Phone Unavailable Primary Care Provider [...] 2024 COVID-19 Vaccine (2023-2 5 season) 2024 RSV Immunization or 60+ Years (1 [...]
--- OUTSIDE RECORDS SUMMARY | 2025-02-26 14:52 | XMS_ITS | Continuity of Care Document ---
Author Organization [facility] Address [address] [place] [address] Phone Care Team Providers Care Teacher Tutor Name Role Phone Sebastian Floyd MD Unavailable [...] 1.00 drop - Active Procedures Procedure Date Less Than 24 Hour Notice Of Appointment Cancellation Health Risk Assesment Patient Focused Au Highly [...] Yes / No Effective Date File Name No Information Encounters Encounter Description Practice Location Reason(s) For Visit Diagnoses Date Provider Providers Copied on Encounter [facility], [address] [place] [address], [id number], [place] tel:[phone] [facility] No Information 5 Mariel Cheshil. [address], [place], [address], [place]. tel:[phone] Referring Provider: Lorenzo Gonzalez, [address] [address], [place], [address]. tel:[phone] [facility], [address] [place] [address], [id number], [place] tel:[phone] [address] [place] [address] No Information 5 [facility]. . Referring Provider: Lorenzo Gonzalez, [address] [address], [place], [address]. tel:[phone] [facility], [address] [place] [address], [id number], tel:[phone] [facility] No Information 5 Mariel Cheshil. [address], [place], [address], [place]. tel:[phone] Referring Provider: Lorenzo Gonzalez, [address] [address], [place], [address]. tel:[phone] Est (Level 4) OFFICE/OUTPA TIENT VISIT [facility], [address] [place] [address], [id number], [place] tel:[phone] [facility] Nucala (chief complaint) Body mass index (BMI) 28.0-28.9, adultSevere persistent asthmaHypogam maglobulinemi aChronic rhinitisTobac co use 4 Mariel Cheshil. [address], [place], [address], [place]. tel:[phone] Referring Provider: Lorenzo Gonzalez, [address] [address], [place], [address]. tel:[phone] Est (Level 4) OFFICE/OUTPA TIENT VISIT [facility], [address] [place] [address], [id number], [place] tel:[phone] [facility] Nucala (chief complaint) Severe persistent asthmaHypogam maglobulinemi aChronic rhinitis 4 Mariel Cheshil. [address] [place], [address], [place]. tel:[phone] Referring Provider: Lorenzo Gonzalez, [address] [address], [place], [address]. tel:[phone] Est (Level 4) OFFICE/OUTPA TIENT VISIT [facility], [address] [place] [address], [address] [place] [address], tel:[phone] [facility] Nucala (chief complaint) Body mass index (BMI) 29.0-29.9, adultSevere persistent asthmaHypogam maglobulinemi aChronic rhinitisTobac co use 4 Mariel Cheshil. [address], [place], [address], [place]. tel:[phone] Referring Provider: Lorenzo Gonzalez, [address] [address], [place], [address]. tel:[phone] [facility], [address] [place] [address], [id number], tel:[phone] [facility] No Information 4 Thuy Elvira. [address] [place] [address], [address], [id number], . tel:[phone] Referring Provider: Lorenzo Gonzalez, 2043 [facility], [place], [address]. tel:[phone] Est (Level 4) OFFICE/OUTPA TIENT VISIT [facility], [address] [place] [address], [id number], tel:[phone] [facility] recurrent infections (chief complaint) Body mass index (BMI) 33.0-33.9, adultHypogamm aglobulinemia Chronic rhinitisSever e persistent asthma Fe- 4 Mariel Cheshil. [address], [place], [address], [place]. tel:[phone] Referring Provider: Lorenzo Gonzalez, [address] [address], [place], [address]. tel:[phone] Est (Level 4) OFFICE/OUTPA TIENT VISIT [facility], [address] [place] [address], [id number], tel:[phone] [facility] lab review (chief complaint) Hypogammaglob ulinemiaChron ic rhinitisSever e persistent asthmaBody mass index (BMI) 32.0-32.9, adult Oct-11 30- 3 Mariel Cheshil. [address], [place], [address], [place]. tel:[phone] Referring Provider: Lorenzo Gonzalez, [address] [address], [place], [address]. tel:[phone] Est (Level 5) OFFICE/OUTPA TIENT VISIT [facility], [address] [place] [address], [id number], [place] tel:[phone] [facility] immunodeficie ncy (chief complaint) Body mass index (BMI) 33.0-33.9, adultHypogamm aglobulinemia Chronic rhinitisSever e persistent asthma - 3 Mariel Cheshil. [address], [place], [address], [place]. tel:[phone] Referring Provider: Lorenzo Gonzalez, [address] [address], [place], [address]. tel:[phone] New (Level 4) OFFICE/OUTPA TIENT VISIT [facility], [address] [place] [address], [id number], [place] tel:[phone] [facility] immunodeficie ncy (chief complaint) Body mass index (BMI) 31.0-31.9, adultHypogamm aglobulinemia Chronic rhinitis Jun-0 2-202 2 Mariel Cheshil. [address] [place], [address], . tel:[phone] Referring Provider: Lorenzo Gonzalez, 2043 [facility], [place], [address]. tel:[phone] Family History Family Member Type Diagnosis Age At Onset Sister Problem (finding) Asthma Grandmother Problem (finding) Rheumatoid arthritis Brother Problem (finding) Asthma Payers Payer name Insurance type Covered green party ID Authorgagandeep garcia(s) [facility] [id number] Social History Type Description Quantity Date Captured Comments Alcohol Use Details Unknown Caffeine Use Details Unknown Tobacco Use Status Smoking Status No Information Sex Female Chief Complaint And Reason For Visit No Information Reason For Referral Reason For Referral No Information Plan Of Treatment Date Type Action Status Goal Tobacco cessation counseling completed Goal Tobacco cessation counseling completed Future Order: Lab Order Diptheri a Diamond, IgG ([id number]), Sent on: Sent Future Order: Lab Order Compleme nt Total (CH50) ([id number]), Sent on: Sent Future Order: Lab Order S. Pneum onia-23 Serotypes ([id number]), Sent on: Sent Future Order: Lab Order IgA, IgG , IgM ([id number]), Sent on: Sent Future Order: Lab Order Compleme nt Total (CH50) ([id number]), Sent on: Sent Future Order: Lab Order Mannose Binding Lectin ([id number]), Sent on: Sent Future Order: Lab Order Immunogl obulins A/E/G/M, Serum ([id number]), Sent on: Sent Future Order: Lab Order Tetanus/ Diphtheria Antibody Profile ([id number]), Sent on: Sent Future Order: Lab Order Strep Pn eumo 23 ([id number]), Sent on: Sent Future Order: Lab Order CBC With Differential ([id number]), Sent on: Sent Future Order: Lab Order T- and B -Lymphocyte and Natural Killer Cell Profile ([id number]), Sent on: Sent History Of Present Illness [...] her symptoms have been tolerable.Asthma/COPD - ACT: Shedward is on Breztri 160/9/4.8 c g 2 [...] (not protective)Anti-Tetanus: 0.28 (protective)AEC: 309AFlow CytometryCD3+: 79%, 7364CU5+CD4+: 60%, 875 CD3+CD8+: 26%, 378CD4/CD8 Ratio: 2.32CD16+CD56+: 15%, 365DQ85+: 3% (L), 41 (L)03/02/2287Zehku-2-Unqlfbioucp wnlQuantiferon negativeEnvironmental Immunocaps: undetectable with total IgE [...] (not protective)Anti-Tetanus: 0.28 (protective)AEC: 309AFlow CytometryCD3+: 79%, 6985RB0+CD4+: 60%, 875 CD3+CD8+: 26%, 378CD4/CD8 Ratio: 2.32CD16+CD56+: 15%, 079QM92+: 3% (L), 41 (L)03/02/2255Cffzb-2-Hqvdfzpqimu wnlQuantiferon negativeEnvironmental Immunocaps: undetectable with total IgE [...] (not protective)Anti-Tetanus: 0.28 (protective)AEC: 309AFlow CytometryCD3+: 79%, 5431HU3+CD4+: 60%, 875 CD3+CD8+: 26%, 378CD4/CD8 Ratio: 2.32CD16+CD56+: 15%, 851UN95+: 3% (L), 41 (L)03/02/2247Arbvy-7-Luotwlxtdzb wnlQuantiferon negativeEnvironmental Immunocaps: undetectable with total IgE [...] since then. She has GERD on omeprazole daily.Data03/02/2207Ojhud-5-Bmvaqdjdaaa wnlQuantiferon negativeEnvironmental Immunocaps: undetectable with total IgE 96IgG 577 (L)*IgG1 379*IgG2 90 (L)*IgG3 9 (L)*IgG4 18?DateEos 380PFT (02/2023): FEV1 1.15 L (43%) w/ bronchodilator responsePFT (06/2023): FEV1 0.92 L (36%)CT Chest 06/2023: no qpaipgy53/30/23IgIgA: 159IgM: 93IgE: 73CH50: 30AH50: 90Anti-Spn 23: decreased = 9% protectedAnti-Diphtheria: <0.10 (not protective)Anti-Tetanus: 0.28 (protective)AEC: 309AFlow CytometryCD3+: 79%, 1736QI0+CD4+: 60%, 875 CD3+CD8+: 26%, 378CD4/CD8 Ratio: 2.32CD16+CD56+: 15%, 150YP92+: 3% (L), 41 (L) lab review LV: 09/27/23She h as hypogammaglobulinemia, asthma/COPD, and chronic rhinitis. This visit was performed via telemedicine on the platform [employer] (audio/video). HypogammaglobulinemiaInterval Infections: noneRhinitisShe is on ipratropium [...] since then. She has GERD on omeprazole daily.Data03/02/2265Qrlmz-4-Revrkwfhaum wnlQuantiferon negativeEnvironmental Immunocaps: undetectable with total IgE 96IgG 577 (L)*IgG1 379*IgG2 90 (L)*IgG3 9 (L)*IgG4 18?DateEos 380PFT (02/2023): FEV1 1.15 L (43%) w/ bronchodilator responsePFT (06/2023): FEV1 0.92 L (36%)CT Chest 06/2023: no kncbdud04/IgIgA: 159IgM: 93IgE: 73CH50: 30AH50: 90Anti-Spn 23: decreased = 9% protectedAnti-Diphtheria: <0.10 (not protective)Anti-Tetanus: 0.28 (protective)AEC: 309AFlow CytometryCD3+: 79%, 2463YC7+CD4+: 60%, 875 CD3+CD8+: 26%, 378CD4/CD8 Ratio: 2.32CD16+CD56+: 15%, 168KZ35+: 3% (L), 41 (L) immunodeficiency LV: 06/28/22She [...] (x 41 years).She has GERD on omeprazole daily.Data03/02/2247Flrqd-3-Vmkquypifmr wnlQuantiferon negativeEnvironmental Immunocaps: undetectable with total IgE [...] She has some asthma-COPD overlap on Breztri 160/07/31.8 ?cg 2 puffs BID and albuterol PRN. She follows with Dr. Gonzalez in Pulmonology, who checked IgG (see below). She denies having had a Pneumovax. ACT: .RhinitisShedward is on intranasal atrovent. She reports nasal [...] 1DataI reviewed outside records available in the EMR03/02/2241Ngikt-0-Yrxsebyowhx wnlQuantiferon negativeEnvironmental Immunocaps: undetectable with total IgE 96IgG 577 (L)*IgG1 379*IgG2 90 (L)*IgG3 9 (L)*IgG4 18?DateEos 380 Functional Status Date Functional Assessmen t No Information Instructions Date Instruction Additional Infor mation Giving encouragement to exercise Related to Body [...]
== END 2025-02-26 13:33 | disposition home or self-care (01) ==
LOC: ANHNEURO 13:34
PROVIDERS: PCP Internal Medicine; Visit Provider Plastic Surgery
DX: G56.03 Carpal tunnel syndrome, bilateral upper limbs (principal); G56.21 Lesion of ulnar nerve, right upper limb
CPT/HCPCS: 95886; 95911

== ENCOUNTER 2025-02-26 14:25 | Outpatient (CLI) | payer BC, SELFPAY ==
--- NOTE | ~2025-02-26 | MM_ITS ---
EXAMINATION: MM screening fish BI w fran HISTORY: Screening TECHNIQUE: Craniocaudal and mediolateral oblique 3-D tomosynthesis images were obtained and synthetic 2-D images were generated. CAD analysis was submitted and interpreted. COMPARISON: Comparison to multiple prior studies sequentially, with oldest reviewed study dated 03/2018. BREAST PARENCHYMAL COMPOSITION: Not dense: There are scattered areas of fibroglandular density. FINDINGS: There is no evidence of suspicious mass, calcification, or architectural distortion to sugg est malignancy in either breast. There has been no suspicious interval change. IMPRESSION: 1. No mammographic evidence of malignancy. 2. Recommend routine screening mammography in one year. BI-RADS Category 1: Negative Reviewed, dictated and finalized at location A.
--- OUTSIDE RECORDS SUMMARY | 2025-02-26 15:55 | XMS_ITS | Clinical Summary ---
Author Organization [facility] Address [address] [place] [address] Care Team Providers Care Bi Application Developer Name Role Phone Prasad Fontaine MD Primary [...] Department Care Team Description 12/04/2024 11:00 AM CREDENTIALING MANAGER Office Visit [facility] Pulmonary at [address] [place] [address] German Newsome DO Asthma-COPD overlap [...] on file Legal Sex Female 11:45 AM CREDENTIALING MANAGER Gender Identity Not on file Sexual Orientation Not on file Obstetrics History Last Filed Vital Signs Vital Sign Reading Time Taken Comments Blood Pressure 132/82 12/04/2024 11:14 AM CREDENTIALING MANAGER Pulse 81 12/04/2024 11:14 AM CREDENTIALING MANAGER Temperature 36.5 C (97.7 F) 12/04/2024 11:14 AM CREDENTIALING MANAGER Respiratory Rate - - Oxygen Saturation 95% 12/04/2024 11:14 AM CREDENTIALING MANAGER Inhaled Oxygen Concentration - - Weight 79.9 kg (176 lb 3.2 oz) 12/04/2024 11:14 AM CREDENTIALING MANAGER Height 170.2 cm (5' 7 ) 12/04/2024 11:14 AM CREDENTIALING MANAGER Body Mass Index 27.6 12/04/2024 11:14 AM CREDENTIALING MANAGER Plan of Treatment Health Maintenance Due Date [...] Influenza Vaccine Completed 09/26/2024, , 12/20/2021 [facility] Care Teams Bi Application Developer Relationship Specialty Start Date End Date Prasad Fontaine MD 2043 [facility] [address] [place], [place] [id number] PCP - General Internal Medicine 10/10/24
--- OUTSIDE RECORDS SUMMARY | 2025-02-26 15:55 | XMS_ITS | Continuity of Care Document ---
Author Organization [facility] Address [address] [place] [address] Phone Care Team Providers Care Parimutuel Clerk Name Role Phone Sebastian Floyd MD Unavailable [...] Encounter [facility], [address] [place] [address], [id number], [place] tel:[phone] [facility] No Information 5 Mariel Cheshil. [address], [place], [address], [place]. tel:[phone] Referring Provider: Lorenzo Gonzalez, [address] [address], [place], [address]. tel:[phone] [facility], [address] [place] [address], [id number], [place] tel:[phone] [address] [place] [address] No Information 5 [facility] Prov. . Referring Provider: Lorenzo Gonzalez, [address] [address], [place], [address]. tel:[phone] [facility], [address] [place] [address], [id number], tel:[phone] [facility] No Information 5 Mariel Cheshil. [address], [place], [address], [place]. tel:[phone] Referring Provider: Lorenzo Gonzalez, [address] [address], [place], [address]. tel:[phone] Est (Level 4) OFFICE/OUTPA TIENT VISIT [facility], [address] [place] [address], [id number], [place] tel:[phone] [facility] Nucala (chief complaint) Body mass index (BMI) 28.0-28.9, adultSevere persistent asthmaHypogam maglobulinemi aChronic rhinitisTobac co use 4 Mariel Cheshil. [address], [place], [address], [place]. tel:[phone] Referring Provider: Lorenzo Gonzalez, [address] [address], [place], [address]. tel:[phone] Est (Level 4) OFFICE/OUTPA TIENT VISIT [facility], [address] [place] [address], [id number], [place] tel:[phone] [facility] Nucala (chief complaint) Severe persistent asthmaHypogam maglobulinemi aChronic rhinitis 4 Mariel Cheshil. [address] [place], [address], [place]. tel:[phone] Referring Provider: Lorenzo Gonzalez, [address] [address], [place], [address]. tel:[phone] Est (Level 4) OFFICE/OUTPA TIENT VISIT [facility], [address] [place] [address], [address] [place] [address], tel:[phone] [facility] Nucala (chief complaint) Body mass index (BMI) 29.0-29.9, adultSevere persistent asthmaHypogam maglobulinemi aChronic rhinitisTobac co use 4 Mariel Cheshil. [address], [place], [address], [place]. tel:[phone] Referring Provider: Lorenzo Gonzalez, [address] [address], [place], [address]. tel:[phone] [facility], [address] [place] [address], [id number], tel:[phone] [facility] No Information 4 Thuy Elvira. [address] [place] [address], [address], [id number], . tel:[phone] Referring Provider: Lorenzo Gonzalez, 2043 [facility], [place], [address]. tel:[phone] Est (Level 4) OFFICE/OUTPA TIENT VISIT [facility], [address] [place] [address], [id number], tel:[phone] [facility] recurrent infections (chief complaint) Body mass index (BMI) 33.0-33.9, adultHypogamm aglobulinemia Chronic rhinitisSever e persistent asthma Fe- 4 Mariel Cheshil. [address], [place], [address], [place]. tel:[phone] Referring Provider: Lorenzo Gonzalez, [address] [address], [place], [address]. tel:[phone] Est (Level 4) OFFICE/OUTPA TIENT VISIT [facility], [address] [place] [address], [id number], tel:[phone] [facility] lab review (chief complaint) Hypogammaglob ulinemiaChron ic rhinitisSever e persistent asthmaBody mass index (BMI) 32.0-32.9, adult Oct-11 30- 3 Mariel Cheshil. [address], [place], [address], [place]. tel:[phone] Referring Provider: Lorenzo Gonzalez, [address] [address], [place], [address]. tel:[phone] Est (Level 5) OFFICE/OUTPA TIENT VISIT [facility], [address] [place] [address], [id number], [place] tel:[phone] [facility] immunodeficie ncy (chief complaint) Body mass index (BMI) 33.0-33.9, adultHypogamm aglobulinemia Chronic rhinitisSever e persistent asthma - 3 Mariel Cheshil. [address], [place], [address], [place]. tel:[phone] Referring Provider: Lorenzo Gonzalez, [address] [address], [place], [address]. tel:[phone] New (Level 4) OFFICE/OUTPA TIENT VISIT [facility], [address] [place] [address], [id number], [place] tel:[phone] [facility] immunodeficie ncy (chief complaint) Body mass index (BMI) 31.0-31.9, adultHypogamm aglobulinemia Chronic rhinitis Jun-0 2-202 2 Mariel Cheshil. [address] [place], [address], . tel:[phone] Referring Provider: Lorenzo Gonzalez, 20[address] [facility], [place], [address]. tel:[phone] Family History Family Member Type Diagnosis Age At Onset Sister Problem (finding) Asthma Grandmother Problem (finding) Rheumatoid arthritis Brother Problem (finding) Asthma Payers Payer name Insurance type Covered constitution party ID Authorgagandeep garcia(s) [facility] [id number] Social History Type Description Quantity Date Captured [...] Order: Lab Order S. Pneum onia-23 Serotypes ([id number]), Sent on: Sent Future Order: Lab Order IgA, IgG , IgM ([id number]), Sent on: Sent Future Order: Lab Order Compleme nt Total (CH50) ([id number]), Sent on: Sent Future Order: Lab Order Mannose Binding Lectin ([id number]), Sent on: Sent Future Order: Lab Order Immunogl obulins A/E/G/M, Serum ([id number]), Sent on: Sent Future Order: Lab Order Tetanus/ Diphtheria Antibody Profile ([id number]), Sent on: Sent Future Order: Lab Order Strep Pn eumo 23 ([id number]), Sent on: Sent Future Order: Lab Order CBC With Differential ([id number]), Sent on: Sent Future Order: Lab Order T- and B -Lymphocyte and Natural Killer Cell Profile ([id number]), Sent on: Sent History Of Present Illness [...] (not protective)Anti-Tetanus: 0.28 (protective)AEC: 309AFlow CytometryCD3+: 79%, 1085PA0+CD4+: 60%, 875 CD3+CD8+: 26%, 378CD4/CD8 Ratio: 2.32CD16+CD56+: 15%, 914SN65+: 3% (L), 41 (L)03/02/2257Tvrol-9-Ochqswcfqhe wnlQuantiferon negativeEnvironmental Immunocaps: undetectable with total IgE [...] (not protective)Anti-Tetanus: 0.28 (protective)AEC: 309AFlow CytometryCD3+: 79%, 9212HO0+CD4+: 60%, 875 CD3+CD8+: 26%, 378CD4/CD8 Ratio: 2.32CD16+CD56+: 15%, 361JC97+: 3% (L), 41 (L)03/02/2210Umacm-8-Jelbflnylci wnlQuantiferon negativeEnvironmental Immunocaps: undetectable with total IgE [...] (not protective)Anti-Tetanus: 0.28 (protective)AEC: 309AFlow CytometryCD3+: 79%, 0528XY7+CD4+: 60%, 875 CD3+CD8+: 26%, 378CD4/CD8 Ratio: 2.32CD16+CD56+: 15%, 212HQ91+: 3% (L), 41 (L)03/02/2217Jrzyl-7-Emjthiwxcep wnlQuantiferon negativeEnvironmental Immunocaps: undetectable with total IgE [...] since then. She has GERD on omeprazole daily.Data03/02/2231Evzpe-7-Edncknzvoii wnlQuantiferon negativeEnvironmental Immunocaps: undetectable with total IgE 96IgG 577 (L)*IgG1 379*IgG2 90 (L)*IgG3 9 (L)*IgG4 18?DateEos 380PFT (02/2023): FEV1 1.15 L (43%) w/ bronchodilator responsePFT (06/2023): FEV1 0.92 L (36%)CT Chest 06/2023: no xeijvwc64/30/23IgIgA: 159IgM: 93IgE: 73CH50: 30AH50: 90Anti-Spn 23: decreased = 9% protectedAnti-Diphtheria: <0.10 (not protective)Anti-Tetanus: 0.28 (protective)AEC: 309AFlow CytometryCD3+: 79%, 3338DW1+CD4+: 60%, 875 CD3+CD8+: 26%, 378CD4/CD8 Ratio: 2.32CD16+CD56+: 15%, 316DT55+: 3% (L), 41 (L) lab review LV: 09/27/23She h as hypogammaglobulinemia, asthma/COPD, and chronic rhinitis. This visit was performed via telemedicine on the platform [employer] (audio/video). HypogammaglobulinemiaInterval Infections: noneRhinitisShe is on ipratropium [...] since then. She has GERD on omeprazole daily.Data03/02/2257Vzbjz-3-Pwfrixuwruy wnlQuantiferon negativeEnvironmental Immunocaps: undetectable with total IgE 96IgG 577 (L)*IgG1 379*IgG2 90 (L)*IgG3 9 (L)*IgG4 18?DateEos 380PFT (02/2023): FEV1 1.15 L (43%) w/ bronchodilator responsePFT (06/2023): FEV1 0.92 L (36%)CT Chest 06/2023: no /IgIgA: 159IgM: 93IgE: 73CH50: 30AH50: 90Anti-Spn 23: decreased = 9% protectedAnti-Diphtheria: <0.10 (not protective)Anti-Tetanus: 0.28 (protective)AEC: 309AFlow CytometryCD3+: 79%, 7162DS7+CD4+: 60%, 875 CD3+CD8+: 26%, 378CD4/CD8 Ratio: 2.32CD16+CD56+: 15%, 459HT92+: 3% (L), 41 (L) immunodeficiency LV: 06/28/22She [...] (x 41 years).She has GERD on omeprazole daily.Data03/02/2269Noala-2-Pipcnabscpe wnlQuantiferon negativeEnvironmental Immunocaps: undetectable with total IgE [...] 1DataI reviewed outside records available in the EMR03/02/2256Gasbl-1-Yvmmiqrlrnz wnlQuantiferon negativeEnvironmental Immunocaps: undetectable with total IgE [...]
--- OUTSIDE RECORDS SUMMARY | 2025-02-26 15:55 | XMS_ITS | Referral Summary ---
Author Organization [facility] Address [address] [place] [address] Care Team Providers Care Dopeman Name Role Phone Prasad Fontiane MD Primary Care Provide r Encounters Date Type Department Care Team Description 12/04/2024 11:00 AM HOOP PUNCHER Office Visit [facility] Medical Group Pulmonary at [address] [place] [address] German Newsome DO Asthma-COPD overlap [...] on file Legal Sex Female 11:45 AM HOOP PUNCHER Gender Identity Not on file Sexual Orientation Not on file Last Filed Vital Signs Vital Sign Reading Time Taken Comments Blood Pressure 132/82 12/04/2024 11:14 AM HOOP PUNCHER Pulse 81 12/04/2024 11:14 AM HOOP PUNCHER Temperature 36.5 C (97.7 F) 12/04/2024 11:14 AM HOOP PUNCHER Respiratory Rate - - Oxygen Saturation 95% 12/04/2024 11:14 AM HOOP PUNCHER Inhaled Oxygen Concentration - - Weight 79.9 kg (176 lb 3.2 oz) 12/04/2024 11:14 AM HOOP PUNCHER Height 170.2 cm (5' 7 ) 12/04/2024 11:14 AM HOOP PUNCHER Body Mass Index 27.6 12/04/2024 11:14 AM HOOP PUNCHER Plan of Treatment Not on file Insurance [facility] Care Teams Dopeman Relationship Specialty Start Date End Date Prasad Fontaine MD [address] [place] [address] PCP - General Internal Medicine 10/10/24
--- OUTSIDE RECORDS SUMMARY | 2025-02-26 15:56 | XMS_ITS | Clinical Summary ---
Author Organization [facility] Address [address] [place] [address] Care Team Providers Care Director Furniture Name Role Phone Theo Argueta MD Primary Care Provider [phone] Theo Argueta MD Unavailable Source Comments [facility],non-owned Affiliates and Associated Physician Practices is amultiple site organization consisting of ambulatory clinics and hospital sitesin [place], [place] and [place]. This disclosure is being madepursuant to the Care Everywhere program and may not contain all information available regarding this patient. Last updated 18.[facility] Allergies Active Allergy Reactions Criticality Noted Date [...] age to complete this topic Care Teams Director Furniture Relationship Specialty Start Date End Date Theo Argueta MD [address] [place] [address] PCP - General Gastroenterology 03/06/17 Theo Argueta MD [address] [place] [address] Gastroenterology 03/06/17
--- OUTSIDE RECORDS SUMMARY | 2025-02-26 15:56 | XMS_ITS | Clinical Summary ---
Author Organization [facility] Address [address] [place] [address] Care Team Providers Care A P Supervisor Name Role Phone Unavailable Primary Care Provider [...]
--- OUTSIDE RECORDS SUMMARY | 2025-02-26 15:56 | XMS_ITS | CONTINUITY OF CARE DOCUMENT ---
Author Name renato chenalia Address Unknown Organization [facility] Address [address] [place] [address] Phone [phone] Care Team Providers Care Glass Calibrator Name Role Phone Lindsay Pires MD Unavailable FRANCOISE BAILEY, GEOVANY Unavailable [phone] FRANCOISE BAILEY, GEOVANY Unavailable [phone] PROBLEMS Condition Status Date Provider Notes Cardiology [...] In-person encounter Office Visit Lindsay Pires MD [place] [facility] Card[facility] examinationC O P DG E [...] Payer name Policy type / Coverage type [place] red [employer] [facility] [employer] [facility] [id number] ADVANCE DIRECTIVES Name Date DISCUSSED - NO [...]
== END 2025-02-26 14:26 | disposition home or self-care (01) ==
PROVIDERS: PCP Internal Medicine; Visit Provider Obstetrics & Gynecology
DX: Z12.31 Encounter for screening mammogram for malignant neoplasm of breast (principal)
CPT/HCPCS: 77063; 77067

== ENCOUNTER 2025-04-11 00:21 | Day surgery (SDC) | payer BC, SELFPAY ==
--- NOTE | 2025-03-31 11:08 | PC.NURSE ---
Report to the Outpatient Waiting Room, entrance under the green pavilion located off [facility], at time __6:15 AM on date __04/11/25 . Planned Procedure Time: __8:15 AM . Time changes happen often and if your time is changed the preop area will call you the afternoon before. - You and your visitor will be asked to self-screen and do not enter if you have any COVID symptoms. Please call surgeon if you need to reschedule. - A mask is optional within the hospital at this time. NOTHING TO EAT OR DRINK 8 HOURS PRIOR TO SURGERY PER DR SCHAEFFER Take only the following medications with a SIP of water on the morning of surgery: ___BREZTRI INHALER,__ALBUTEROL DO NOT STOP ANY OF YOUR OTHER PRESCRIPTION MEDICATIONS PRIOR TO SURGERY EXCEPT THE FOLLOWING Hold all vitamins and supplements for 3 days per anesthesiologist. Medications to discontinue per physician NONE Please no make-up, nail burkinan, hairspray, perfume, deodorant, or body powder the day of surgery. No jewelry (including any body piercings) or valuables the day of surgery, leave them at home. Please take a shower or bath the night before, or the morning of, surgery with an antibacterial soap. Wear comfortable, loose fitting clothing. Children are encouraged to wear pajamas. - Jewelry must be removed prior to entering the operating room. Rings and piercings that are not removed may be cut off. - The hospital will not accept responsibility for valuables. - Please leave all valuables, including medications, at home the day of surgery. If you are going home after surgery, a licensed pile driver operator must drive you home. - NO public transportation without another adult if you receive anesthesia. - We recommend that an adult stay with you for 24 hours following discharge. - We also recommend that you do not drive, make important decision, drink alcoholic beverages, or take any drugs that were not prescribed by your health care provider for at least 24 hours after your discharge time. For Pediatric surgeries, we recommend two adults accompany the child home. Follow any additional instructions given to you from your surgeon. Telephone instructions given to _PATIENT and asked if any additional questions and then verbalized understanding. Patient advised to call surgeon office or pre surgery nurse liaison [phone] if any additional questions.
[2025-03-31 11:27] VITALS: BMI 27.0
--- OUTSIDE RECORDS SUMMARY | 2025-04-11 00:30 | XMS_ITS | Data Portability ---
Author Organization [place] [facility], Main Office Address [address] [place] [address] Care Team Providers Care Refuge Worker Name Role Phone HU ARGUETA Imaging Nurse [phone] WAYNE FONTAINE Primary Care Provider TERRIE PULMONOLOGY Mining Teacher Assessment Encounter Date Assessment Date Assessment LastModified by Organization Details LastModified Time 09/12/2023 09/12/2023 Assessment: Nicotine smoke: 4/5 ppd 1994- present [...] note 06/28/22 hypogammaglobulinemia Nicotine cessation counseling provided. [place] for quitting nicotine include getting ready, getting [...] in Quit For Life program Registering at [email or web address] Making a call to 6-883-KODL-NOW ( ). A strong, clear, personalized message [...] failure or relapse. Patient can enroll in [facility]'s smoking cessation class through Christine Saul [...] will consult with Dr. Torres Floyd at [address] [place] [address], [place] [address] TEL for further evaluation and treatment of [...] further management. Follow-up: 3 months, November 2023 [facility] Not available 09/12/2023 16:37:51 01/22/2024 01/22/2024 Assessment: Nicotine smoke: 03/01 ppd [id number] (quit 2 years in between) = 20.8 [...] note 06/28/[address] Floyd note 11/09/23 Tena considered Nicotine cessation counseling provided. [place] for quitting nicotine include getting ready, getting [...] in Quit For Life program Registering at [email or web address] Making a call to 0-518-MVQA-NOW ( ). A strong, clear, personalized message [...] failure or relapse. Patient can enroll in [facility]'s smoking cessation class through Christine Saul [...] follow up with Dr. Torres Floyd at [address] [place] [address], [place] [address] TEL for further evaluation and treatment of [...] further management. Follow-up: 9 months, September 2024 Not available 01/22/2024 12:34:51 Plan of Treatment Reminders Order Date Submit Date Provider Last Modified By Organization Details Last Modified Time Details Appointments Any 15 2024 01:00P Neo mera MD Not available Not available Not available Any 2024 01:00P Neo mera MD Not available Not available Not available Lab vitamin D, 25-hydrox y, total, serum [address] (Lab), [address] [place], [address], 04/10/2025 09:31:33 lipid panel, serum [address] (Lab), [address] [place], [address], 04/10/2025 09:30:58 CBC w/ auto diff [address] (Lab), [address] [place], [address], 04/10/2025 09:31:06 TSH, serum or plasma [address] (Lab), [address] [place], [address], 04/10/2025 09:31:16 CMP, serum or plasma [address] (Lab), [address] [place], [address], 04/10/2025 09:31:25 vitamin B12 + folate, serum or blood [address] (Lab), [address] [place], [address], 04/10/2025 09:31:42 lipid panel, serum [address] (Lab), [address] [place], [address], 02/04/2025 11:50:25 CBC w/ auto diff [address] (Lab), [address] [place], [address], 02/04/2025 11:50:25 TSH, serum or plasma [address] (Lab), [address] [place], [address], 02/04/2025 11:50:26 CMP, serum or plasma [address] (Lab), [address] [place], [address], 02/04/2025 11:50:26 vitamin D, 25-hydrox y, total, serum [address] (Lab), [address] [place], [address], 02/04/2025 11:50:26 vitamin B12 + folate, serum or blood [address] (Lab), [address] [place], [address], 02/04/2025 11:50:26 lipid panel, serum [address] (Lab), [address] [place], [address], 02/04/2025 11:50:24 CBC w/ auto diff [address] (Lab), [address] [place], [address], 02/04/2025 11:50:24 TSH, serum or plasma [address] (Lab), [address] [place], [address], 02/04/2025 11:50:24 CMP, serum or plasma [address] (Lab), [address] [place], [address], 02/04/2025 11:50:24 vitamin D, 25-hydrox y, total, serum [address] (Lab), [address] [place], [address], 02/04/2025 11:50:25 vitamin B12 + folate, serum or blood [address] (Lab), [address] [place], [address], 02/04/2025 11:50:25 Referral pulmonolo gist referral 2024 025 [email or web address] Not available 01/01/2025 09:50:51 airborne and air delivery specialist referral - Please call patient to schedule an appointme nt. Thank you. 2024 025 [email or web address] Sebastian Floyd, [address] [facility] [facility], [place], [address], 01/16/2025 17:42:30 hand surgeon referral - Please call patient to schedule an appointme nt. Thank you 2024 025 [email or web address] Donnie Vivas MD, [address], [place], [address], 03/04/2025 08:49:34 gynecolog ist referral - Please call patient to schedule. 2023 [email or web address] Meredith Baca MD, [address], [address], [place], [address], 02/04/2025 11:50:44 hand surgeon referral - Please call patient to schedule. 2023 024 [email or web address] Zach Calderon MD, [address], [address], [place], [address], 02/04/2025 11:50:44 cardiolog ist referral - Please call patient to schedule. 2023 MARTINA Pires MD, [address], [address], [place], [address], 12/11/2024 14:33:41 airborne and air delivery specialist referral - Eosinophi ls 380/uL, PFT 03/17/22 FEV1 1.15 L (43%), (+) BD response 2022 023 [email or web address] 5 [facility], [address] [facility], [place], [address], 11/01/2023 14:57:50 Procedures upper endoscopy procedure (EGD) (PROC) - Please call patient to schedule an appointme nt. Thank you. 2024 025 hrushingDimple French MD, [address], [address], [place], [address], 04/03/2025 09:19:25 upper endoscopy procedure (EGD) (PROC) - Please call patient to schedule an appointme nt. Thank you. 2024 025 hrushingDimple French MD, [address], [address], [place], [address], 01/30/2025 09:36:51 upper endoscopy procedure (EGD) (PROC) 2023 024 [email or web address] Hu Argueta, [address], [place], [address], 10/28/2024 16:11:49 Surgeries None recorded. Imaging MAMMO, screening , digital, bilateral - Please call patient to schedule. 2023 024 [email or web address] [facility] ([facility]), [address] [place], [address], 10/28/2024 18:21:07 DEXA, axial skeleton - Please call patient to schedule. 2023 024 [email or web address] [facility] ([facility]), [address] [place], [address], 10/28/2024 16:12:02 LDCT, chest, for lung cancer screening 2023 024 [facility] ([facility]), [address] [place], [address], 10/04/2024 11:08:35 Medication Orders Airsupra 90 mcg-80 mcg/actua tion HFA aerosol inhaler 2024 025 MARTINA [id number], [address], [place], [address], 03/27/2025 15:03:59 albuterol sulfate HFA 90 mcg/actua tion aerosol inhaler 2024 025 [email or web address] la2 [id number], [address], [place], [address], 03/27/2025 15:01:25 albuterol sulfate HFA 90 mcg/actua tion aerosol inhaler 2023 024 [email or web address] la2 [id number], [address], [place], [address], 03/27/2025 15:01:25 Breztri Aerospher e 160 mcg-9mcg- 4.8mcg/ac tuation HFA aerosol inhaler 2023 024 [id number], [address], [place], [address], 01/22/2024 12:37:48 ipratropi um bromide 42 mcg (0.06 %) nasal spray 2023 024 [id number], [address], [place], [address], 01/22/2024 12:38:24 albuterol sulfate HFA 90 mcg/actua tion aerosol inhaler 2022 023 [facility] [address] [id number] [address] [place], [address], 03/27/2025 15:01:25 Breztri Aerospher e 160 mcg-9mcg- 4.8mcg/ac tuation HFA aerosol inhaler 2022 023 [id number] [address] [place], [address], 09/12/2023 16:33:09 ipratropi um bromide 42 mcg (0.06 %) nasal spray 2022 023 [facility] #[id number], [address], [place], [address], 09/12/2023 16:33:08 Patient TargetsNo targets recorded. Patient Instructions Encounter Date Encounter Id Patient Instructions Last Modified By Organization Details Last Modified Time 01/22/2024 [id number] complete PFT w/ post bronchodilator spirometry* Not available 10/04/2024 10:37:27 Reason for Referral Picture Enlarger Referral for Eosin ophil count above reference range Eosinophils 380/uL, PFT 03/17/22 FEV1 1.15 L (43%), (+) BD response Referring Physician: Lorenzo Gonzalez, Pulmonary Disease, Encounter Date: 09/12/2023 Senior Abap Developer Referral for Gy necologic examination Please call patient to schedule. Referring Physician: [facility], Encounter Date: 09/26/2024 Typing Pool Supervisor Referral for Sc reening for cardiovascular system [...] Wayne [facility], Encounter Date: 12/31/2024 Mining Teacher Referral for C hronic obstructive pulmonary disease Referring Physician: Wayne Fontaine [facility], Encounter Date: 12/31/2024 Picture Enlarger Referral for Chron ic obstructive pulmonary disease Please call patient to schedule an appointment. Thank you. Referring Physician: Wayne Font[facility], Encounter Date: 12/31/2024 Results Created Date Observation Date Name Description Value Unit Range Abnormal Flag Note LastModifiedBy Organization Detail LastModifiedTime 09/11/2009/07/2023 compl ete PFT w/ post [facility] hodil ator esteban metry * No observ ation record ed. [facility] ([facility]) [address], [place], [address], 09/11/2023 12:22:50 02/27/20 25 02/26/2025 MAMMO , trish montes, digit al, bilat eral No observ ation record ed. [facility] [address], [place], [address], 02/26/2025 16:31:22 Result Notes None recorded. Problems Name Problem SNOMED Code Status Onset Date Resolution Date Notes Provider Name and Address Organization Details Recorded Time Multiple nodules of lung 464682041 Active 2022 Not Available [facility] 3 10:17:55 Severe chronic obstructiv e pulmonary disease 413053095 Active 2022 Not Available [facility] 3 10:17:55 Posterior rhinorrhea 46374757 Active 2022 Not Available [facility] 3 10:17:55 Smoker 49671360 Active 2022 Not Available [facility] 3 10:17:55 Eosinophil count above reference range 065512237 Active 2022 Lorenzo Gonzalez MD [address], [address], [place], [address] , [employer] [facility] [employer] Guide 3 16:29:27 Ex-smoker 8012597 Active 2023 Lorenzo Gonzalez MD [address], [place], [address] , [employer] [facility] [employer] Guide 4 12:37:18 Hyperlipid emia 64239224 Active 2023 Wayne jackson MD [address], [place], [address] , [employer] [facility] [employer] [facility] 4 15:01:56 Chronic obstructiv e pulmonary disease 76203150 Active 2023 Wayne jackson MD [address], [place], [address] , [employer] [facility] [employer] Guide 4 15:02:15 Vitamin D deficiency 06078424 Active 2023 Wayne jackson MD [address], [place], [address] , [employer] [facility] 4 15:02:41 Serum vitamin B12 below reference range 319533921 Active 2023 Wayne jackson MD [address], [place], [address] , [facility] 4 15:02:48 Gastroesop hageal reflux disease without esophagiti s 380166120 Active 2023 Wayne jackson MD [address], [address], [place], [address] , [facility] 4 15:03:43 Bilateral carpal tunnel syndrome 2439168635742 9101 Active 2023 Wayne jackson MD [address], [facility] [address], [place], [address] , [facility] 4 16:12:26 Upper respirator y infection 19654510 Active 2024 Kristina Vasquez MA null, [facility] 5 11:45:30 Dyspnea 160716543 Active 2024 DAYANARA Gutierrez null, [facility] 5 10:01:22 Acute sinusitis 14412904 Active 2024 DAYANARA Gutierrez null, [facility] 5 10:16:19 Notes:Medical History: Hypog ammaglobulinemia (total, IgG2, IgG3) Rhinitis with postnasal drip IgE 96 IU/mL Eosinophils 380/uL Severe persistent asthma on Nucala Alpha-1 antitrypsin PiMM 156 mg% Nicotine dependence Severe COPD, declined pulm rehab Hyperlipidemia CALOS on omeprazole 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 Procedures Surgical History Date Name Laterality Status Provider Name and Address Organization Details Recorded Time 9 Back Surgeries completed Not Available [facility] 01/26 00:57:56 Imaging Results Imaging Date Name Status LastModified by Organization Details LastModified Time 09/07/2023 complete PFT w/ post bronchodilator spirometry* completed [facility] ([facility]) [address], [place], [address], 09/11/2023 12:22:50 02/26/2025 MAMMO, screening, digital, bilateral active [facility] [address], [place], [address], 02/26/2025 16:31:22 Procedure Notes None recorded. Medical Equipment None Reported. Allergies No known drug allergies Medications Name Sig Start Date Stop Date Status Note LastModified by Organization Details LastModified Time levocarniti ne and semaglutide #099934 100mg, 2.65mg/ml injectable INJECT 1.5MG SQ EVERY 7 DAYS. 12/31 completed Not Available Not Available Not Available levocarniti ne and semaglutide 100,2.65mg/ ml #193542 INJECT 1.5MG SQ EVERY 7 DAYS. 12/31 completed Not Available Not Available Not Available atorvastati n 40 mg tablet TAKE ONE TABLET BY MOUTH ONE TIME DAILY active Not Available Not Available No t Available prednisone 10 mg tablet TAKE 4 TABS BY MOUTH DAILY X3 DAYS, 3 TABS DAILY X3 DAYS, 2 TABS DAILY X3 DAYS, 1 TAB DAILY X3 DAYS active Not Available Not Available No t Available doxycycline hyclate 100 mg capsule TAKE 1 CAPSULE BY MOUTH 2 TIMES A DAY FOR 5 DAYS active Not Available Not Available No t Available ipratropium 0.5 mg-albutero l 3 mg (2.5 mg base)/3 mL nebulizatio n soln INHALE THE CONTENTS OF 1 VIAL VIA NEBULIZER EVERY 6 HOURS NEEDED active Not Available Not Available No t Available albuterol sulfate 2.5 mg/3 mL (0.083 %) solution for nebulizatio n TAKE 3 ML (2.5 MG TOTAL) BY NEBULIZAT ION EVERY 6 HOURS NEEDED FOR WHEEZING OR SHORTNESS OF BREATH active Not Available Not Available No t Available azithromyci n 250 mg tablet TAKE 2 TABLETS BY MOUTH TODAY, THEN TAKE 1 TABLET DAILY FOR 4 DAYS DIRECTED 09/26 completed Not Available Not Available Not Available prednisone 20 mg tablet TAKE 2 TABLETS BY MOUTH EVERY DAY FOR 5 DAYS active Not Available Not Available No t Available metronidazo le 500 mg tablet TAKE [...] completed Not Available Not Available Not Available methylpredn isolone 4 mg tablets in a dose pack TAKE 6 TABLETS ON DAY 1 DIRECTED ON PACKAGE AND DECREASE BY 1 TAB EACH DAY FOR A TOTAL OF 6 DAYS 03/27 completed Not Available Not Available Not Available albuterol sulfate HFA 90 mcg/actuati on aerosol inhaler INHALE 2 PUFFS EVERY 4 HOURS BY INHALATIO N ROUTE NEEDED 03/27 completed Not Available Not Available Not Available ipratropium bromide 42 mcg (0.06 %) nasal spray [place] 1 spray 4 times a day by intranasa l route as needed. active Not Available Not Available No t Available fluticasone propionate 50 mcg/actuati on nasal spray,suspe nsion INSTILL 2 SPRAYS INTO EACH NOSTRIL EVERY DAY active Not Available Not Available No t Available metronidazo le 375 mg capsule TAKE 3 TABLETS BY MOUTH 3 TIMES A DAY. 09/26 completed Not Available Not Available Not Available amoxicillin 875 mg-potassiu m clavulanate 125 mg tablet TAKE 1 TABLET BY MOUTH TWICE A DAY FOR 7 DAYS 03/27 completed Not Available Not Available Not Available Comp-Air Nebulizer Compressor USE DIRECTED active Not Available Not Available No t Available [facility] spacer USE DIRECTED active Not Available Not Available No t Available guaifenesin ER 600 mg tablet, extended release 12 hr TAKE 2 TABLETS BY MOUTH EVERY 12 HOURS 03/27 completed Not Available Not Available Not Available Nucala 100 mg/mL subcutaneou s auto-inject [...] completed Not Available Not Available Not Available Airsupra 90 mcg-80 mcg/actuati on HFA aerosol inhaler INHALE 2 INHALATIO NS 4 TIMES A DAY BY INHALATIO N ROUTE NEEDED active Not Available Not Available No t Available Vitals Date Recorded Body height Body mass index (BMI) Body weight Body temperature Heart rate Oxygen saturation Oxygen saturation in Arterial blood by Pulse oximetry Systolic blood pressure Diastolic blood pressure Provider Name and Address Organization Details Last Updated DateTime 3 170.18 cm 32 kg/m2 50085.8 4 g 97.6 [degF] 82 /min 95 % 95 % 122 mm[Hg] 84 mm[Hg] Kristina Vasquez MA [employer] 3 16:08:59 Date Recorded Heart rate Respiratory rate Provider N zenon and Address Organization Details Last Updated DateTime 09/12/2023 82 /min 15 /min Lorenzo Gonzalez MD [address] [place] [address], [place], [address], [employer] 09/12/2023 16:37:15 Date Recorded Body height Body mass index (BMI) Body weight Body temperature Heart rate Systolic blood pressure Diastolic blood pressure Provider Name and Address Organization Details Last Updated DateTime 4 168.91 cm 32.8 kg/m2 78416.4 7 g 97.8 [degF] 83 /min 118 mm[Hg] 66 mm[Hg] Marisa Vyas MA [facility] [email or web address] [facility] 4 12:13:20 Date Recorded Oxygen saturation Oxygen saturation in Arterial blood by Pulse oximetry Heart rate Respiratory rate Provider Name and Address Organization Details Last Updated DateTime 01/22/2024 95 % 95 % 83 /min 14 /min Lorenzo Gonzalez MD [address], [facility] [address], [place], [address], [facility] [email or web address] [facility] 4 12:28:30 Date Recorded Body height Body mass index (BMI) Body weight Body temperature Heart rate Oxygen saturation Oxygen saturation in Arterial blood by Pulse oximetry Pain severity - 0-10 verbal numeric rating [Score] - Reported Systolic blood pressure Diastolic blood pressure Provider Name and Address Organization Details Last Updated DateTime 4 168.91 cm 28.9 kg/m2 141736|[id number]|2025-04-11 06:37:59|2025-04-11 06:37:59|W.PM.[email or web address]||||"Procedure Note - Detailed Date of Procedure 04/11/25 Pre-op Diagnosis left carpal and cubital tunnel syndrome Post-op Diagnosis Same Procedure Performed left ectr and cuTR Surgeon Donnie Vivas MD Sample Shoe Inspector And Reworker neha san [facility] Anesthesia MAC Description of Procedure INFORMED CONSENT: The patient was seen and examined and marked in the pre-op area. The patient signed the consent form. PROCEDURE IN DETAIL:The patient taken back to OR on the stretcher in supine position. Time out performed with anesthesia, surgeon and staff agreeing on patient's name site and surgery to be performed SCDs were placed on the lower extremities and inflated. A tourniquet was placed on {/left} upper extremity and antibiotics given IV After anesthesia administered sedation I injected {10}cc 1%lido with epi and 0.5% marcaine plain at the operative sites The {left upper extremity} was prepped and draped in sterile fashion the {left upper extremity} was exsanguinated with Esmarch bandage and tourniquet inflated to 250mmHg I made a transverse incision in the {left} volar distal wrist crease through skin and dermis with 15 blade scalpel. Littler scissors spread down to antebrachial fascia. A small incision was made in antebrachial fascia allowing access to Carpal tunnel. I proceeded with sequential dilation staying in line with the ring finger and hugging the hook of the hamate. I then used the synovial elevator to free any adhesions from the underside of the transverse carpal ligament. Next I was able to insert the [employer] endoscopic carpal tunnel device with direct visualization of the transverse fibers on the monitor and proceeded with complete segmental retrograde release of the ligament in its entirety. I irrigated with normal saline and closed with 4-0 monocryl for dermis and subcuticular closure. I next proceeded with making a longitudinal incision between two heads for flexor carpi ulnaris at end of {left} cubital tunnel with 15 blade scalpel. Littler scissors were used to spread down to FCU fascia. An incision was made in FCU fascia and ulnar nerve identified exiting cubital tunnel. I proceeded with complete retrograde release of the cubital tunnel including 7cm proximal for the intermuscular septum. The nerve appeared moderately atrophic in appearance. There was no subluxation on full elbow range of motion. I irrigated with normal saline and closure with 3-0 vicryl and 4-0 monocryl. The incisions were covered with Dermabond then 4x4s, elia, and a posterior elbow and volar wrist splint for patient safety, security and comfort and secured with griselda bandages after the tourniquet was let down noting the hand was warm and well perfused. Patient awaken from anesthesia and transferred to recovery in stable condition Complications - none EBL- 1cc Disposition - home in stable conditions neha san pa-c was essential for positioning, retraction, closure and dressing placement [facility] Billing Surgery - Charge Forward: Surgery Billing ([id number] same for neha ochoa )"
--- OUTSIDE RECORDS SUMMARY | 2025-04-11 00:30 | XMS_ITS | Referral Summary ---
Author Organization [facility] Address [address] [place] [phone] Care Team Providers Care Mentally Retarded Teacher Name Role Phone Prasad Fontaine MD Primary Care Provide r Encounters Date Type Department Care Team Description 04/03/2025 1:45 PM CDT Office Visit [facility] Pulmonary at [address] [place] [phone] German Newsome DO COPD with acute exacerbation (HCC) (Primary Dx); Tobacco use disorder; Chronic rhinosinusitis 03/27/2025 Orders Only [facility] Pulmonary at [address] [place] [phone] German Newsome DO 03/27/2025 Orders Only [facility] Pulmonary at [address] [place] [phone] German Newsome DO 03/25/2025 Telephone [facility] Pulmonary at [address] [phone] Rachel Wood LPN Sick call from Last 3 Months Allergies No known active allergies Medications atorvastatin (LIPITOR) 40 mg tablet Take 1 tablet (40 mg total) by mouth daily Active EPINEPHrine (EpiPen 2-Pj) 0.3 mg/0.3 mL auto-injectio n syringe Inject 0.3 mL (0.3 mg total) into the muscle as instructed as needed 05/07/20 24 Active ipratropium (ATROVENT) 21 mcg (0.03 %) nasal spray Administer 2 sprays into affected nostril(s) every 12 hours 09/27/20 23 Active Nucala 100 mg/mL auto-injector Inject 1 mL (100 mg total) under the skin every 30 (thirty) days 11/28/19 25 Active omeprazole (PriLOSEC) 20 mg capsule TAKE ONE CAPSULE BY MOUTH EVERY DAY IN THE MORNING PRIOR TO A MEAL. 10/18/20 24 Active prednisoLONE acetate (PRED FORTE) 1 % ophthalmic suspension as needed 09/17/20 24 Active predniSONE (DELTASONE) 10 mg tablet as needed 09/02/20 24 Active albuterol 2.5 mg /3 mL (0.083 %) nebulizer solution Take 3 mL (2.5 mg total) by nebulization every 6 (six) hours as needed for wheezing or shortness of breath 75 mL 12/04/19 25 Active budesonide-gl ycopyr-formot penny (Breztri Aerosphere) 160-9-4.8 mcg/actuation inhaler Inhale 2 puffs 2 (two) times a day 3 each 12/04/19 25 026 Active albuterol HFA (PROVENTIL HFA,VENTOLIN HFA,PROAIR HFA) 90 mcg/actuation inhaler Inhale 2 puffs every 6 (six) hours as needed for wheezing or shortness of breath 1 each 03/27/20 25 Active predniSONE (DELTASONE) 10 mg tablet Take 4 tabs (40mg) daily for 3 days, then 3 tabs (30mg) daily for 3 days, 2 tabs (20mg) daily for 3 days, 1 tab (10 mg) daily for 3 days. 30 tablet 04/03/20 25 025 Active fluticasone propionate (FLONASE) 50 mcg/actuation nasal spray Administer 2 sprays into each nostril daily 16 g 04/03/20 026 Active albuterol HFA (PROVENTIL HFA,VENTOLIN HFA,PROAIR HFA) 90 mcg/actuation inhaler Inhale 2 puffs every 6 (six) hours as needed for wheezing or shortness of breath 1 each 12/04/19 25 025 Discontinued(R eorder) predniSONE (DELTASONE) 20 mg tablet Take 2 tablets (40 mg) by mouth daily for 5 days 10 tablet 03/27/20 25 025 doxycycline (VIBRAMYCIN) 100 mg capsule Take 1 tablet/capsule (100 mg total) by mouth 2 (two) times a day for 10 days 20 tablet/caps ule 04/03/20 25 025 Discontinued doxycycline (VIBRAMYCIN) 100 mg capsule Take 1 tablet/capsule (100 mg total) by mouth 2 (two) times a day for 5 days 10 tablet/caps ule 04/03/20 25 025 Active Problems Problem Noted Date Diagnosed Date Tobacco use disorder 04/03/2025 Chronic rhinosinusitis 04/03/2025 Social History Tobacco Use Types Packs/Day Years [...] on file 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 Care Teams Mentally Retarded Teacher Relationship Specialty Start Date End Date Prasad Fontaine MD [address] [place] [address] PCP - General Internal Medicine 10/10/24
--- OUTSIDE RECORDS SUMMARY | 2025-04-11 00:30 | XMS_ITS | Clinical Summary ---
Author Organization [facility] Address [address] [place] [address] Care Team Providers Care Route Carrier Name Role Phone Theo Argueta MD Primary Care Provider [phone] Theo Argueta MD Unavailable [phone] Source Comments [facility],non-owned Affiliates and Associated Physician Practices is amultiple site organization consisting of ambulatory clinics and hospital sitesin [place], [place], [place] and [place]. This disclosure is being madepursuant to the Care Everywhere program and may not contain all information available regarding this patient. Last updated 18.[facility] Allergies Active Allergy Reactions Criticality Noted Date Comments Penicillins 09/03/2016 Penicillins 03/06/2017 Medications * Be aware that medications may not be up to date on this document. Alwaysverify current medications with the patient. Albuterol Sulfate (PROAIR HFA IN) Active Omeprazole (PRILOSEC PO) Active Atorvastatin Calcium (LIPITOR PO) Active fluticasone-salm eterol (ADVAIR) 250-50 MCG/DOSE inhaler Inhale 1 puff by mouth 2 times daily Active Active Problems No known active problems Social History Tobacco Use Types Packs/Day Years Used Date Smoking Tobacco: Some Days Cigarettes Smokeless Tobacco: Never Tobacco Cessation:Ready to Q uit: No; Counseling Given: Yes Comments No Sex and Gender Information Value Date Recorded Sex Assigned at Not on file Legal Sex Female 10:01 AM CDT Gender Identity Not on file [...] - COLON CA SCREENING 1959 MAMMOGRAM 1959 HIV SCREENING 1974 HEPATITIS C SCREENING 05/10/1977 DTAP/TDAP/TD VACCINES (1 - Tdap) 1978 PNEUMOCOCCAL VACCINE 50+ (1 of 1 - PCV) 2009 ZOSTER VACCINE (1 of 2) 2009 SCREENING FOR DIABETES 05/02/2018 COVID-19 VACCINE ( - 2023-2 5 season) 2024 DEPRESSION SCREENING 11/27/2024 INFLUENZA VACCINE (Season Ended) 2025 Respiratory Syncytial Virus (RSV) Vaccine Pt: or [...] on patient's age to complete this topic Insurance Care Teams Route Carrier Relationship Specialty Start Date End Date Theo Argueta MD [address] [place] [id number] PCP - General Gastroenterology 03/06/17 Theo Argueta MD [address] [address] Gastroenterology 03/06/17
--- OUTSIDE RECORDS SUMMARY | 2025-04-11 00:30 | XMS_ITS | Continuity of Care Document ---
Author Organization [facility] Address [address] [place] [address] Phone Care Team Providers Care Composition Weatherboard Applier Name Role Phone Sebastian Floyd MD Unavailable [...] Encounter [facility], [address] [place] [address], [id number], [place] tel:[phone] [facility] No Information 5 Mariel Cheshil. [address], [place], [address], [place]. tel:[phone] Referring Provider: Lorenzo Gonzalez, [address] [address], [place], [address]. tel:[phone] [facility], [address] [place] [address], [id number], [place] tel:[phone] [address] [place] [address] No Information 5 [facility]. . Referring Provider: Lorenzo Gonzalez, [address] [address], [place], [address]. tel:[phone] [facility], [address] [place] [address], [id number], tel:[phone] [facility] No Information 5 Mariel Cheshil. [address], [place], [address], [place]. tel:[phone] Referring Provider: Lorenzo Gonazlez, [address] [address], [place], [address]. tel:[phone] Est (Level 4) OFFICE/OUTPA TIENT VISIT [facility], [address] [place] [address], [id number], [place] tel:[phone] [facility] Nucala (chief complaint) Body mass index (BMI) 28.0-28.9, adultSevere persistent asthmaHypogam maglobulinemi aChronic rhinitisTobac co use 4 Mariel Cheshil. [address], [place], [address], [place]. tel:[phone] Referring Provider: Lorenzo Gonzalez, [address] [address], [place], [address]. tel:[phone] Est (Level 4) OFFICE/OUTPA TIENT VISIT [facility], [address] [place] [address], [id number], [place] tel:[phone] [facility] Nucala (chief complaint) Severe persistent asthmaHypogam maglobulinemi aChronic rhinitis 4 Mariel Cheshil. [address] [place], [address], [place]. tel:[phone] Referring Provider: Lorenzo Gonzalez, [address] [address], [place], [address]. tel:[phone] Est (Level 4) OFFICE/OUTPA TIENT VISIT [facility], [address] [place] [address], [address] [place] [address], tel:[phone] [facility] Nucala (chief complaint) Body mass index (BMI) 29.0-29.9, adultSevere persistent asthmaHypogam maglobulinemi aChronic rhinitisTobac co use 4 Mariel Cheshil. [address], [place], [address], [place]. tel:[phone] Referring Provider: Lorenzo Gonzalez, [address] [address], [place], [address]. tel:[phone] [facility], [address] [place] [address], [id number], tel:[phone] [facility] No Information 4 Thuy Elvira. [address] [place] [address], [address], [id number], . tel:[phone] Referring Provider: Lorenzo Gonzalez, [address] [facility] [address], [place], [address]. tel:[phone] Est (Level 4) OFFICE/OUTPA TIENT VISIT [facility], [address] [place] [address], [id number], tel:[phone] [facility] recurrent infections (chief complaint) Body mass index (BMI) 33.0-33.9, adultHypogamm aglobulinemia Chronic rhinitisSever e persistent asthma Fe- 4 Mariel Cheshil. [address], [place], [address], [place]. tel:[phone] Referring Provider: Lorenzo Gonzalez, [address] [address], [place], [address]. tel:[phone] Est (Level 4) OFFICE/OUTPA TIENT VISIT [facility], [address] [place] [address], [id number], tel:[phone] [facility] lab review (chief complaint) Hypogammaglob ulinemiaChron ic rhinitisSever e persistent asthmaBody mass index (BMI) 32.0-32.9, adult Oct-11 30- 3 Mariel Cheshil. [address], [place], [address], [place]. tel:[phone] Referring Provider: Lorenzo Gonzalez, [address] [address], [place], [address]. tel:[phone] Est (Level 5) OFFICE/OUTPA TIENT VISIT [facility], [address] [place] [address], [id number], [place] tel:[phone] [facility] immunodeficie ncy (chief complaint) Body mass index (BMI) 33.0-33.9, adultHypogamm aglobulinemia Chronic rhinitisSever e persistent asthma - 3 Mariel Cheshil. [address], [place], [address], [place]. tel:[phone] Referring Provider: Lorenzo Gonzalez, [address] [address], [place], [address]. tel:[phone] New (Level 4) OFFICE/OUTPA TIENT VISIT [facility], [address] [place] [address], [id number], [place] tel:[phone] [facility] immunodeficie ncy (chief complaint) Body mass index (BMI) 31.0-31.9, adultHypogamm aglobulinemia Chronic rhinitis Jun-0 2-202 2 Mariel Cheshil. [address] [place], [address], . tel:[phone] Referring Provider: Lorenzo Gonzalez, [address] [facility] [address], [place], [address]. tel:[phone] Family History Family Member Type Diagnosis Age At Onset Sister Problem (finding) Asthma Grandmother Problem (finding) Rheumatoid arthritis Brother Problem (finding) Asthma Payers Payer name Insurance type Covered republican ID Authorgagandeep garcia(s) [facility] [id number] Social History Type Description Quantity Date Captured [...] Order: Lab Order S. Pneum onia-23 Serotypes ([id number]), Sent on: Sent Future Order: Lab Order IgA, IgG , IgM ([id number]), Sent on: Sent Future Order: Lab Order Compleme nt Total (CH50) ([id number]), Sent on: Sent Future Order: Lab Order Mannose Binding Lectin ([id number]), Sent on: Sent Future Order: Lab Order Immunogl obulins A/E/G/M, Serum ([id number]), Sent on: Sent Future Order: Lab Order Tetanus/ Diphtheria Antibody Profile ([id number]), Sent on: Sent Future Order: Lab Order Strep Pn eumo 23 ([id number]), Sent on: Sent Future Order: Lab Order CBC With Differential ([id number]), Sent on: Sent Future Order: Lab Order T- and B -Lymphocyte and Natural Killer Cell Profile ([id number]), Sent on: Sent History Of Present Illness [...] (not protective)Anti-Tetanus: 0.28 (protective)AEC: 309AFlow CytometryCD3+: 79%, 4963OL4+CD4+: 60%, 875 CD3+CD8+: 26%, 378CD4/CD8 Ratio: 2.32CD16+CD56+: 15%, 381JV85+: 3% (L), 41 (L)03/02/2221Jfyjv-3-Yrfdlabwugm wnlQuantiferon negativeEnvironmental Immunocaps: undetectable with total IgE [...] (not protective)Anti-Tetanus: 0.28 (protective)AEC: 309AFlow CytometryCD3+: 79%, 8511CY9+CD4+: 60%, 875 CD3+CD8+: 26%, 378CD4/CD8 Ratio: 2.32CD16+CD56+: 15%, 235US66+: 3% (L), 41 (L)03/02/2252Yaluu-9-Jkgiujarcwc wnlQuantiferon negativeEnvironmental Immunocaps: undetectable with total IgE [...] (not protective)Anti-Tetanus: 0.28 (protective)AEC: 309AFlow CytometryCD3+: 79%, 4307MJ2+CD4+: 60%, 875 CD3+CD8+: 26%, 378CD4/CD8 Ratio: 2.32CD16+CD56+: 15%, 304GE41+: 3% (L), 41 (L)03/02/2259Nrhac-5-Fdxmnghwars wnlQuantiferon negativeEnvironmental Immunocaps: undetectable with total IgE [...] since then. She has GERD on omeprazole daily.Data03/02/2215Oqslz-0-Iwfmemdybms wnlQuantiferon negativeEnvironmental Immunocaps: undetectable with total IgE 96IgG 577 (L)*IgG1 379*IgG2 90 (L)*IgG3 9 (L)*IgG4 18?DateEos 380PFT (02/2023): FEV1 1.15 L (43%) w/ bronchodilator responsePFT (06/2023): FEV1 0.92 L (36%)CT Chest 06/2023: no svrwuop68/30/23IgIgA: 159IgM: 93IgE: 73CH50: 30AH50: 90Anti-Spn 23: decreased = 9% protectedAnti-Diphtheria: <0.10 (not protective)Anti-Tetanus: 0.28 (protective)AEC: 309AFlow CytometryCD3+: 79%, 1005OS7+CD4+: 60%, 875 CD3+CD8+: 26%, 378CD4/CD8 Ratio: 2.32CD16+CD56+: 15%, 550BP95+: 3% (L), 41 (L) lab review LV: 09/27/23She h as hypogammaglobulinemia, asthma/COPD, and chronic rhinitis. This visit was performed via telemedicine on the platform Lessno (audio/video). HypogammaglobulinemiaInterval Infections: noneRhinitisShe is on ipratropium [...] since then. She has GERD on omeprazole daily.Data03/02/2246Jxhfp-7-Exjzedqwtmf wnlQuantiferon negativeEnvironmental Immunocaps: undetectable with total IgE 96IgG 577 (L)*IgG1 379*IgG2 90 (L)*IgG3 9 (L)*IgG4 18?DateEos 380PFT (02/2023): FEV1 1.15 L (43%) w/ bronchodilator responsePFT (06/2023): FEV1 0.92 L (36%)CT Chest 06/2023: no /IgIgA: 159IgM: 93IgE: 73CH50: 30AH50: 90Anti-Spn 23: decreased = 9% protectedAnti-Diphtheria: <0.10 (not protective)Anti-Tetanus: 0.28 (protective)AEC: 309AFlow CytometryCD3+: 79%, 9310AC2+CD4+: 60%, 875 CD3+CD8+: 26%, 378CD4/CD8 Ratio: 2.32CD16+CD56+: 15%, 740YS35+: 3% (L), 41 (L) immunodeficiency LV: 06/28/22She [...] (x 41 years).She has GERD on omeprazole daily.Data03/02/2205Hkxxm-2-Dlpcvckxdcz wnlQuantiferon negativeEnvironmental Immunocaps: undetectable with total IgE [...] has some asthma-COPD overlap on Breztri 160/9/4.8 µcg 2 puffs BID and albuterol PRN. She [...] 1DataI reviewed outside records available in the EMR03/02/2229Mtinh-0-Bypikklnmfd wnlQuantiferon negativeEnvironmental Immunocaps: undetectable with total IgE [...]
--- OUTSIDE RECORDS SUMMARY | 2025-04-11 00:30 | XMS_ITS | Clinical Summary ---
Author Organization [facility] Address [facility] [place] [address] Care Team Providers Care Hand Counter Name Role Phone Prasad Fontaine MD Primary [...] or shortness of breath 75 mL 11 12/04/19 25 Active budesonide-gl ycopyr-formot penny (Breztri Aerosphere) 160-9-4.8 mcg/actuation inhaler Inhale 2 puffs 2 (two) times a day 3 each 3 12/04/19 25 026 Active albuterol HFA (PROVENTIL HFA,VENTOLIN HFA,PROAIR HFA) 90 mcg/actuation inhaler Inhale 2 puffs every 6 (six) hours as needed for wheezing or shortness of breath 1 each 11 03/27/20 25 Active predniSONE (DELTASONE) 10 mg tablet Take 4 tabs (40mg) daily for 3 days, then 3 tabs (30mg) daily for 3 days, 2 tabs (20mg) daily for 3 days, 1 tab (10 mg) daily for 3 days. 30 tablet 04/03/20 25 025 Active fluticasone propionate (FLONASE) 50 mcg/actuation nasal spray Administer 2 sprays into each nostril daily 16 g 11 04/03/20 25 026 Active albuterol HFA (PROVENTIL HFA,VENTOLIN HFA,PROAIR HFA) 90 mcg/actuation inhaler Inhale 2 puffs every 6 (six) hours as needed for wheezing or shortness of breath 1 each 11 12/04/19 25 025 Discontinued(R eorder) predniSONE (DELTASONE) [...] Tobacco use disorder 04/03/2025 Chronic rhinosinusitis 04/03/2025 Encounters Date Type Department Care Team Description 04/03/2025 1:45 PM CDT Office Visit [facility] Pulmonary at [address] [place] [address] German Newsome DO COPD with acute exacerbation (HCC) (Primary Dx); Tobacco use disorder; Chronic rhinosinusitis 03/27/2025 Orders Only [facility] Pulmonary at [address] [place] [phone] German Newsome, 03/27/2025 Orders Only [facility] Pulmonary at [address] [place] [phone] German Newsome, 03/25/2025 Telephone [facility] Pulmonary at [address] [place] [address] Rachel Wood LPN Sick call from Last 3 Months Surgical History Surgery [...] on file 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
[2025-04-11 06:23] VITALS: BMI 28.7
--- NOTE | 2025-04-11 06:37 | P.OP_ITS ---
Procedure Note - Detailed Date of Procedure 04/11/25 Pre-op Diagnosis left carpal and cubital tunnel syndrome Post-op Diagnosis Same Procedure Performed left ectr and cuTR Surgeon Donnie Vivas MD [employer] Director neha san [facility] Anesthesia MAC Description of Procedure INFORMED CONSENT: The patient was seen and examined and marked in the pre-op area. The patient signed the consent form. PROCEDURE IN DETAIL:The patient taken back to OR on the stretcher in supine position. Time out performed with anesthesia, surgeon and staff agreeing on patient's name site and surgery to be performed SCDs were placed on the lower extremities and inflated. A tourniquet was placed on {/left} upper extremity and antibiotics given IV After anesthesia administered sedation I injected {10}cc 1%lido with epi and 0.5% marcaine plain at the operative sites The {left upper extremity} was prepped and draped in sterile fashion the {left upper extremity} was exsanguinated with Esmarch bandage and tourniquet inflated to 250mmHg I made a transverse incision in the {left} volar distal wrist crease through skin and dermis with 15 blade scalpel. Littler scissors spread down to antebrachial fascia. A small incision was made in antebrachial fascia allowing access to Carpal tunnel. I proceeded with sequential dilation staying in line with the ring finger and hugging the hook of the hamate. I then used the synovial elevator to free any adhesions from the underside of the transverse carpal ligament. Next I was able to insert the Microaire endoscopic carpal tunnel device with direct visualization of the transverse fibers on the monitor and proceeded with complete segmental retrograde release of the ligament in its entirety. I irrigated with normal saline and closed with 4-0 monocryl for dermis and subcuticular closure. I next proceeded with making a longitudinal incision between two heads for flexor carpi ulnaris at end of {left} cubital tunnel with 15 blade scalpel. Littler scissors were used to spread down to FCU fascia. An incision was made in FCU fascia and ulnar nerve identified exiting cubital tunnel. I proceeded with complete retrograde release of the cubital tunnel including 7cm proximal for the intermuscular septum. The nerve appeared moderately atrophic in appearance. There was no subluxation on full elbow range of motion. I irrigated with normal saline and closure with 3-0 vicryl and 4-0 monocryl. The incisions were covered with Dermabond then 4x4s, elia, and a posterior elbow and volar wrist splint for patient safety, security and comfort and secured with griselda bandages after the tourniquet was let down noting the hand was warm and well perfused. Patient awaken from anesthesia and transferred to recovery in stable condition Complications - none EBL- 1cc Disposition - home in stable conditions neha san pa-c was essential for positioning, retraction, closure and dressing placement [facility] Billing Surgery - Charge Forward: Surgery Billing ([id number] same for lisa lundy adding )
--- NOTE | 2025-04-11 06:37 | WPDHPUPDATE1 ---
History and Physical Update Update Date/Time: 04/11/25 06:37 Patient seen and examined in pre-operative holding area. No interval change in medical history or symptoms. Patient recalls previous discussion of benefits and alternatives to procedure. Continues to desire to proceed with left endoscopic possible open carpal tunnel release and left cubital tunnel release. Reviewed procedure, post-op expectations and risks including but not limited to bleeding, infection, injury to tendon/nerve/vessel, decreased hand function, stiffness, RSD, no change or worsening of symptoms. I discussed the possible use of assistants and their participation in the case. Patient stated understanding and signed the consent form wishing to proceed.
[2025-04-11 06:55] VITALS: BP 130/86; PULSE 76; RESP 18; TEMP 36.5; O2SAT 98
[2025-04-11] MEDS: LACTATED RINGERS 1,000 ML 30 ML IV CONT (06:55)
--- NOTE | 2025-04-11 07:48 | WPDANESEPPF ---
Anes - Initial Pre Proc Eval Procedure: Operation Date: 04/11/25 08:15 Proposed Procedures p Left Endoscopic Carpal Tunnel Release, Possible Open, Left Cubital Tunnel Release - Donnie Vivas MD Date/Time: 04/11/25 07:48 Surgeon: Donnie Vivas MD Pre Op Diagnosis: left carpal and cubital tunnel syndrome Patient Data Age: 64 Gender: F Height: 1.69 m Weight: 82 kg Last Vital Signs Temp 36.5 C 04/11/25 06:55 Pulse 76 04/11/25 06:55 Resp 18 04/11/25 06:55 BP 130/86 04/11/25 06:55 Pulse Ox 98 04/11/25 06:55 O2 Del Method Room Air 04/11/25 06:55 Allergies Allergy/AdvReac Type Severity Reaction Status Date / Time No Known Allergies Allergy Verified 04/11/25 07:07 Home Medications Medication Instructions Recorded Confirmed Type albuterol sulfate 2.5 mg/3 mL 2.5 mg inhalation Q6-8H PRN 01/08/25 03/31/25 History (0.083 %) solution for nebulization shortness of breath or wheezing albuterol sulfate 90 mcg/actuation 2 inh inhalation Q6-8H PRN 01/08/25 04/11/25 History aerosol inhaler shortness of breath or wheezing atorvastatin 40 mg tablet 40 mg PO QAM 01/08/25 04/11/25 History budesonide 160 mcg-glycopyr 9 2 inh inhalation QAM AND QPM 01/08/25 04/11/25 History mcg-formot 4.8 mcg/actuation HFA inhaler (Breztri Aerosphere) mepolizumab 100 mg/mL subcutaneous 300 mg subcut MONTHLY 01/08/25 03/31/25 History auto-injector (Nucala) omeprazole 20 mg capsule,delayed 20 mg PO QAM 01/08/25 04/11/25 History release nebulizer accessories #1 ea 01/13/25 01/23/25 Rx nebulizer and compressor #1 ea 01/13/25 01/23/25 Rx tramadol 50 mg tablet 50 mg PO Q6H PRN pain #12 tabs 04/11/25 Rx Patient hx anesthesia problems: none Family hx anesthesia problems: none Results Review: All pre-operative results and documents have been reviewed as part of the pre-operative evaluation. [facility] Past Medical History Medical History Hyperlipidemia Eosinophilic asthma Surgical History Surgical History History of back surgery Family History Family History Sibling Acute myocardial infarction Chronic lung disease Father Cerebrovascular accident Sibling Chronic lung disease Mother Kidney failure Breast cancer Social History Social History Social History: current some day smoker Smoking packs per day: 0.5 Smoking cigarettes per day: 10.0 Years smoked: 41 Smoking pack-years: 20.50 Smoking status: Current some day smoker Tobacco type: cigarettes Additional smoking assessment comments: Currently smokes for 1 to 2 days then none for 4 days Alcohol intake: former Alcohol use details: former drinker Substance use: never Substance use type: does not use Do You Feel Safe in your Home?: Yes Lack of Transportation: No Lack of Food: Never True Current Housing: I Have Housing Concerned About Future Housing: No Difficulty Paying Gas/Electric Bills: No Difficulty Paying for Meds: No Currently Unemployed: No Education: High School Diploma/GED Difficulty w/ Childcare or Family Care: No Living arrangements: with family Occupation/Education: occupation 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 Informed Consent: The patient's anesthetic plan and its attendant risks and benefits were discussed with the patient/family/POA. Questions were solicited and answers provided to the satisfaction of the patient/family/POA.
[2025-04-11] MEDS: ceFAZolin 2 GM/D5W 50 ML 2 GM/50 ML BAG IVPB (07:57)
[2025-04-11] MEDS: BUPivacaine HCL 0.5% 10 ML AMP INFILTRATE (08:04)
[2025-04-11] MEDS: LIDO 1%/EPINEPHRINE 1:100,000 20 ML VIAL 10 ML INFILTRATE (08:04)
[2025-04-11 08:28] VITALS: BP 113/64; PULSE 71; RESP 20; O2SAT 99
[2025-04-11 08:58] VITALS: BP 132/70; PULSE 61
== END 2025-04-11 09:10 | disposition home or self-care (01) ==
PROVIDERS: PCP Internal Medicine; Visit Provider Plastic Surgery
PROC: 01N54ZZ Release Median Nerve, Percutaneous Endoscopic Approach (ICD-10-PCS; CPT 29848; principal; 2025-04-11 08:15)
DX: G56.02 Carpal tunnel syndrome, left upper limb (principal); G56.21 Lesion of ulnar nerve, right upper limb; E78.5 Hyperlipidemia, unspecified; J82.83 Eosinophilic asthma; Z98.1 Arthrodesis status; F17.210 Nicotine dependence, cigarettes, uncomplicated; Z79.51 Long term (current) use of inhaled steroids; Z79.891 Long term (current) use of opiate analgesic; Z80.3 Family history of malignant neoplasm of breast; Z82.49 Family history of ischemic heart disease and other diseases of the circulatory system
CPT/HCPCS: 64718; 29848; J0690; J2003; J2004; J2704; J3010; J7120